=== PATIENT | male | born 1990 | race Caucasian/White ===

== ENCOUNTER 2016-12-09 07:45 | Inpatient (IN) | payer MEDICARE, OTHER ==
[2016-12-09] MEDS ORDERED: SODIUM CHLORIDE 0.9% 1,000 ML IV STA (08:19)
--- NOTE | 2016-12-09 08:22 | ED ---
General Adult HPI <Yeison Hernandez - Last Filed: 12/09/16 12:53> - General Source: patient, family, RN notes reviewed, old records reviewed Mode of arrival: ambulatory Limitations: no limitations <Trae Cormier - Last Filed: 12/09/16 12:59> - General Chief complaint: Abdominal Pain Stated complaint: constipation Time Seen by Provider: 12/09/16 08:10 - History of Present Illness Initial comments: Patient is a 26 year old male with significant past medical history for cervical pulses, who presents emergency room today with his mother, with chief complaint of possible bone structure. History provided by mother is patient is nonverbal. Mother states that appetites been decreased over the last 2 days. She states that several bowel obstructions in the past. States his symptoms that he typically starts present with. States that abdominal surgeries in the past. Denies any nausea vomiting. Denies any other complaints or symptoms at this time. Patient denies any recent fever, chills, shortness of breath, chest pain, back pain, abdominal pain, nausea or vomiting, numbness or tingling, dysuria or hematuria, constipation or diarrhea, headaches or visual changes, or any other complaints. (Trae Cormier) - Related Data Home Medications Medication Instructions Recorded Confirmed Polyethylene Glycol 3350 [Miralax] 17 gm PO DAILY 06/16/16 12/09/16 Allergies Allergy/AdvReac Type Severity Reaction Status Date / Time No Known Allergies Allergy Verified 12/09/16 08:27 Review of Systems ROS Other: All systems not noted in ROS Statement are negative. <Yeison Hernandez - Last Filed: 12/09/16 12:53> ROS Other: All systems not noted in ROS Statement are negative. <Trae Cormier - Last Filed: 12/09/16 12:59> ROS Statement: Those systems with pertinent positive or pertinent negative responses have been documented in the HPI. 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 SEIZURE DISORDER-last seizure yrs ago -nOT CURENTLY ON MEDS. HX OF ESOPHAGEAL CONSTRICTION PAST ASPIRATION(PT IS UNABLE TO THROW UP)-not on any special diet. History of Any Multi-Drug Resistant Organisms: None Reported Past Surgical History: Bowel Resection Additional Past Surgical History / Comment(s): 12/10/15 colonoscopy, oral surgery , esphogeal surgery-PT IS UNABLE TO THROW UP, partial lower intestine removed, shunt in brain, repaired a hole in his heart as -went in through his back , Past Anesthesia/Blood Transfusion Reactions: No Reported Reaction Past Psychological History: No Psychological Hx Reported Additional Psychological History / Comment(s): PT WAS BORN PREMATURE(AT 5.5 MONTHS) WT WAS 1 POUND 6 OUNCES.HAS CEREBAL PALSEY,SEVERE MENTAL RETARDATION/ severe cognitive impairment.LIVES WITH HIS SISTER. UNABLE TO READ OR WRITE BUT GOES TO A [employer] IN [place] WHERE MOM SAID HE LEARNED SOME SIGN LANGUAGE. PT ABLE TO AMBULATE ON HIS OWN AND PTS MOM STATED HE CAN FOLLOW DIRECTIONS FAIRLY WELL, AND SHAKE HIS HEAD YES /NO. Pt sensitive to buzzing noises. Smoking Status: Never smoker Past Alcohol Use History: None Reported Past Drug Use History: None Reported - Past Family History Mother Family Medical History: Cancer Additional Family Medical History / Comment(s): BREAST CANCER-mother is 61 yrs old. Father Family Medical History: Seizure Disorder Additional Family Medical History / Comment(s): Father is 58 yrs old. <Trae Cormier - Last Filed: 12/09/16 12:59> General Exam <Yeison Hernandez - Last Filed: 12/09/16 12:53> Limitations: no limitations <Trae Cormier - Last Filed: 12/09/16 12:59> - General Exam Comments Initial Comments: General: The patient is awake and alert, in no distress, and does not appear acutely ill. Eye: Pupils are equal, round and reactive to light, extra-ocular movements are intact. No nystagmus. There is normal conjunctiva bilaterally. No signs of icterus. Ears, nose, mouth and throat: There are moist mucous membranes and no oral lesions. Neck: The neck is supple, there is no tenderness or JVD. Cardiovascular: There is a regular rate and rhythm. No murmur, rub or gallop is appreciated. Respiratory: Lungs are clear to auscultation, respirations are non-labored, breath sounds are equal. No wheezes, stridor, rales, or rhonchi. Gastrointestinal: Soft, non-distended, non-tender abdomen without masses or organomegaly noted. There is no rebound or guarding present. No CVA tenderness. Musculoskeletal: Normal ROM, no tenderness. Strength 5/5. Sensation intact. Pulses equal bilaterally 2+. Neurological: A&O x 3. CN II-XII intact, There are no obvious motor or sensory deficits. Coordination appears grossly intact. Speech is normal. Skin: Skin is warm and dry and no rashes or lesions are noted. Psychiatric: Cooperative, appropriate mood & affect, normal judgment. (Trae Cormier) Course <Yeison Hernandez - Last Filed: 12/09/16 12:53> <Trae Cormier - Last Filed: 12/09/16 12:59> Vital Signs 12/09/16 12/09/16 08:02 10:06 Temperature 97.1 F L Pulse Rate 106 H 101 H Respiratory 18 18 Rate Blood Pressure 154/92 146/85 O2 Sat by Pulse 98 95 Oximetry - Reevaluation(s) Reevaluation #1: 12/09/16 12:54 Patient reevaluated by myself, Dr. Hernandez. Patient is a difficult exam and is nonverbal. Patient's abdomen is somewhat distended. Results reviewed. Family updated. Case discussed with Dr. Mayes will admit his patient with consult for Dr. Barnes who the patient has previously seen. (Yeison Hernandez) Medical Decision Making - Lab Data Result diagrams: 12/09/16 08:55 12/09/16 08:55 <Yeison Hernandez - Last Filed: 12/09/16 12:53> - Lab Data Result diagrams: 12/09/16 08:55 12/09/16 08:55 <Trae Cormier - Last Filed: 12/09/16 12:59> - Lab Data Lab Results 12/09/16 12/09/16 12/09/16 Range/Units 08:55 08:55 08:55 WBC 18.6 H (3.8-10.6) k/uL RBC 6.00 H (4.30-5.90) m/uL Hgb 16.5 (13.0-17.5) gm/dL Hct 50.4 (39.0-53.0) % MCV 84.0 (80.0-100.0) fL MCH 27.5 (25.0-35.0) pg MCHC 32.7 (31.0-37.0) g/dL RDW 13.0 (11.5-15.5) % Plt Count 277 (150-450) k/uL Neutrophils % 90 % Lymphocytes % 2 % Monocytes % 7 % Eosinophils % 0 % Basophils % 0 % Neutrophils # 16.8 H (1.3-7.7) k/uL Lymphocytes # 0.3 L (1.0-4.8) k/uL Monocytes # 1.2 H (0-1.0) k/uL Eosinophils # 0.1 (0-0.7) k/uL Basophils # 0.1 (0-0.2) k/uL Manual Slide Review Performed Sodium 141 (137-145) mmol/L Potassium 4.3 (3.5-5.1) mmol/L Chloride 96 L (98-107) mmol/L Carbon Dioxide 28 (22-30) mmol/L Anion Gap 17 mmol/L BUN 17 (9-20) mg/dL Creatinine 0.73 (0.66-1.25) mg/dL Est GFR (MDRD) Af Amer >60 (>60 ml/min/1.73 sqM) Est GFR (MDRD) Non-Af >60 (>60 ml/min/1.73 sqM) Glucose 154 H (74-99) mg/dL Plasma Lactic Acid Taj 2.8 H* (0.7-2.0) mmol/L Calcium 10.4 H (8.4-10.2) mg/dL Total Bilirubin 0.7 (0.2-1.3) mg/dL AST 26 (17-59) U/L ALT 32 (21-72) U/L Alkaline Phosphatase 57 (38-126) U/L Total Protein 8.8 H (6.3-8.2) g/dL Albumin 5.2 H (3.5-5.0) g/dL Amylase 59 (30-110) U/L Lipase 40 (23-300) U/L Disposition <Yeison Hernandez - Last Filed: 12/09/16 12:53> Time of Disposition: 12:48 <Trae Cormier - Last Filed: 12/09/16 12:59> Clinical Impression: Ileus, Gallstones Disposition: ADMITTED IP TO THIS HOSP Condition: Stable
[2016-12-09 09:24] LABS: Basophils # (A) 0.1 k/uL (0-0.2); Basophils % (A) 0 %; CH 28.7; CHCM 34.3; Eosinophils # (A) 0.1 k/uL (0-0.7); Eosinophils % (A) 0 %; HCT 50.4 % (39.0-53.0); HDW 2.43; HGB 16.5 gm/dL (13.0-17.5); Immature Gran Flag Moderate; Luc # (Auto) 0.11; Luc % (Auto) 1; Lymphocytes # (A) 0.3 k/uL (1.0-4.8); Lymphocytes % (A) 2 %; MCH 27.5 pg (25.0-35.0); MCHC 32.7 g/dL (31.0-37.0); Mean Platelet Volume 7.4; Monocytes # (A) 1.2 k/uL (0-1.0); Monocytes % (A) 7 %; Neutrophils # (A) 16.8 k/uL (1.3-7.7); Neutrophils % (A) 90 %; WBC 18.6 k/uL (3.8-10.6)
[2016-12-09 09:25] LABS: ALT 32 U/L (21-72); AST 26 U/L (17-59); Alkaline Phosphatase 57 U/L (38-126); Amylase 59 U/L (30-110); Anion Gap 17 mmol/L; Blood Urea Nitrogen 17 mg/dL (9-20); Calcium 10.4 mg/dL (8.4-10.2); Carbon Dioxide 28 mmol/L (22-30); Chloride 96 mmol/L (98-107); Glucose 154 mg/dL (74-99); Non-African American GFR(MDRD) >60 (>60 ml/min/1.73 sqM); Potassium 4.3 mmol/L (3.5-5.1); Sodium 141 mmol/L (137-145); Total Bilirubin 0.7 mg/dL (0.2-1.3); Total Protein 8.8 g/dL (6.3-8.2)
--- NOTE | 2016-12-09 10:01 | XR ---
EXAMINATION TYPE: XR abdomen complete w decub DATE OF EXAM: 12/09/2016 9:47 AM COMPARISON: 08/06/2016 HISTORY: Pain TECHNIQUE: Supine, upright, and left side down lateral decubitus views of the abdomen are obtained. FINDINGS: There is no evidence for pneumoperitoneum. Dilated loops of small and large bowel persist essentially unchanged from prior examination of 016. The findings may reflect ileus. Distal obstruction is within the differential. No sizeable air fluid levels. No mass effects are seen. No unusual calcifications. IMPRESSION: Nonspecific bowel gas pattern. Continued follow-up advised.
[2016-12-09] MEDS ORDERED: RX INFO: IV CONTRAST WAS GIVEN 1 EACH MISC MISCELLANE PRN (10:04)
[2016-12-09 10:33] LABS: Manual Review Performed
--- NOTE | 2016-12-09 10:56 | CT ---
EXAMINATION TYPE: CT abdomen pelvis w con DATE OF EXAM: 12/09/2016 10:38 AM COMPARISON: NONE INDICATION: Constipation DLP: 441.6 mGycm, Automated exposure control for dose reduction was used. CONTRAST: 100 mL of Omnipaque 300. Study performed without Oral Contrast TECHNIQUE: Axial images were obtained from above the diaphragm to the pubic rami in the axial plane a t 5 mm thick sections. Reconstructed images are reviewed on the computer in the coronal plane. FINDINGS: Limited CT sections are obtained the lung bases. The lung bases are clear. CT ABDOMEN: Liver: There is a 1.3 cm hypodense are slightly irregular torres within the posterior lateral right mi d kidney. This is not a simple cyst. Other etiologies including masses or hemangioma could be conside red. This is less well visualized on delayed images. Spleen: Normal Pancreas: Normal Adrenal glands: The adrenal glands are normal. Gallbladder: Not identified. What appears to be the common bile duct leading towards the head of the pancreas there are several calcifications present. Multiple common bile duct stones are suspected. Kidneys: No masses are evident. No hydronephrosis is present. No cysts are present. Delayed images were obtained through the kidneys, which remain unremarkable. Aorta: Vascular calcification is within the distal aorta. Inferior vena cava: Normal. CT PELVIS: There are multiple dilated loops of bowel including small bowel loops and the colon. Appendix: Normal as visualized. Urinary bladder: Normal. Genitourinary structures: Prostate appears unremarkable. Osseous structures: No suspicious lytic or sclerotic lesions. IMPRESSIONS: 1. Multiple dilated small bowel loops. The colon appears air-filled and fluid-filled. No zone of tra nsition is identified. Ileus is likely within the differential. Distal colonic obstruction is conside red less likely. 2. Multiple common bile duct stones present. Correlate with patient's surgical history.
--- NOTE | 2016-12-09 12:37 | US ---
EXAMINATION TYPE: US abdomen limited DATE OF EXAM: 12/09/2016 12:07 PM COMPARISON: In pacs CLINICAL HISTORY: Pain. Physically and mentally disabled patient, patient's mother states she brought him to the ER for digestion and bowel problems, mother states he still has his gallbladder. EXAM MEASUREMENTS: Liver Length: 15.1 cm Gallbladder Wall: 0.2 cm CBD: n/a Right Kidney: 7.4 x 4.4 x 5.1 cm Technically difficult and limited study due to patient's disability Pancreas: obscured by overlying midline bowel gas Liver: 1.6 x 2.5 x 1.3cm hyperechoic lesion right lobe, scanned intercostally, limited by rib shadow ing and overlying bowel gas Gallbladder: not seen with certainty Evidence for sonographic Raza's sign: n/a CBD: not seen with certainty Right Kidney: appears atrophic at 7.4cm Within gallbladder/CBD area there is an elongated tubular structure with multiple echogenic shadowi ng foci within, ? gallbladder vs. CBD IMPRESSION: 1. Poor visualization of the gallbladder. 2. Hyperechoic hepatic lesion may reflect hemangioma.
[2016-12-09] MEDS ORDERED: NALOXONE 0.4 MG/ML 1 ML VIAL IV PRN (12:54)
[2016-12-09] MEDS ORDERED: ACETAMINOPHEN TAB 325 MG TAB PO PRN (12:54)
[2016-12-09] MEDS ORDERED: SODIUM CHLORIDE 0.9% 1,000 ML IV ONE (12:54)
[2016-12-09] MEDS ORDERED: ONDANSETRON 4 MG/2 ML VIAL IVP PRN (12:54)
[2016-12-09] MEDS: HYDROmorphone 1 MG/ML 1 ML SYRINGE IV PRN ×2 (16:53→21:35)
[2016-12-10] MEDS: HYDROmorphone 1 MG/ML 1 ML SYRINGE IV PRN ×3 (08:22→18:21)
[2016-12-10 08:39] LABS: ALT 28 U/L (21-72); AST 20 U/L (17-59); Alkaline Phosphatase 45 U/L (38-126); Anion Gap 12 mmol/L; Blood Urea Nitrogen 22 mg/dL (9-20); Calcium 9.1 mg/dL (8.4-10.2); Carbon Dioxide 28 mmol/L (22-30); Chloride 101 mmol/L (98-107); Glucose 88 mg/dL (74-99); Non-African American GFR(MDRD) >60 (>60 ml/min/1.73 sqM); Potassium 4.5 mmol/L (3.5-5.1); Sodium 141 mmol/L (137-145); Total Bilirubin 0.6 mg/dL (0.2-1.3)
[2016-12-10 09:00] LABS: Basophils # (A) 0.1 k/uL (0-0.2); Basophils % (A) 1 %; CH 28.3; CHCM 33.2; Eosinophils # (A) 0.2 k/uL (0-0.7); Eosinophils % (A) 2 %; HCT 44.5 % (39.0-53.0); HDW 2.34; HGB 14.2 gm/dL (13.0-17.5); Luc # (Auto) 0.21; Luc % (Auto) 3; Lymphocytes # (A) 0.9 k/uL (1.0-4.8); Lymphocytes % (A) 10 %; MCH 27.2 pg (25.0-35.0); MCHC 31.9 g/dL (31.0-37.0); MCV 85.4 fL (80.0-100.0); Mean Platelet Volume 7.4; Monocytes # (A) 1.1 k/uL (0-1.0); Monocytes % (A) 14 %; Neutrophils # (A) 5.9 k/uL (1.3-7.7); Neutrophils % (A) 71 %; RBC 5.22 m/uL (4.30-5.90); RDW 13.1 % (11.5-15.5); WBC 8.3 k/uL (3.8-10.6); WBC (Perox) 8.31
[2016-12-10 12:50] LABS: Appearance,Urine Clear (Clear); Bilirubin,Urine Negative (Negative); Glucose,Urine (UA) Negative (Negative); Ketones,Urine 3+ (Negative); Leukocyte Esterase,Urine Negative (Negative); Nitrite,Urine Negative (Negative); PH, Urine 5.5 (5.0-8.0); Protein,Urine Trace (Negative); Specific Gravity,Urine 1.025 (1.001-1.035); UA Billing (MACRO vs. MICRO) CHEM; Urobilinogen,Urine <2.0 mg/dL (<2.0)
--- NOTE | 2016-12-10 16:20 | P.GSCN ---
History of Present Illness Consult date: 12/10/16 Reason for Consult: Ileus History of present illness: Patient is fairly well known to our service. The patient has a history of numerous abdominal surgeries as an . He has frequent episodes of ileus that requires conservative therapy and gradually resolves. During a recent hospitalization a flexible sigmoidoscopy was performed which showed no evidence of distal colonic obstruction. Actual anastomosis was not seen although it is suspected that he has had a large volume of his colon removed in the past. He came in with recurrent episode of abdominal distention and anorexia. Abdominal x-rays suggest a ileus or obstruction. He did have gallstones seen on his CAT scan with a contracted gallbladder. The large loose liquid stool yesterday evening. White blood cell count was elevated although that is improved and normalized today. Lactic acid was also elevated yesterday. 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 SEIZURE DISORDER-last seizure yrs ago -nOT CURENTLY ON MEDS. HX OF ESOPHAGEAL CONSTRICTION, PAST ASPIRATION(PT IS UNABLE TO THROW UP)-not on any special diet. History of Any Multi-Drug Resistant Organisms: None Reported Past Surgical History: Bowel Resection Additional Past Surgical History / Comment(s): 12/10/15 colonoscopy, oral surgery , esphogeal surgery-PT IS UNABLE TO THROW UP, partial lower intestine removed, shunt in brain, repaired a hole in his heart as infant -went in through his back , Past Anesthesia/Blood Transfusion Reactions: No Reported Reaction Past Psychological History: No Psychological Hx Reported Additional Psychological History / Comment(s): PT WAS BORN PREMATURE(AT 5.5 MONTHS) WT WAS 1 POUND 6 OUNCES.HAS CEREBAL PALSEY,SEVERE MENTAL RETARDATION/ severe cognitive impairment.LIVES WITH HIS SISTER. UNABLE TO READ OR WRITE BUT GOES TO A [employer] IN [place] WHERE MOM SAID HE LEARNED SOME SIGN LANGUAGE. PT ABLE TO AMBULATE ON HIS OWN AND PTS MOM STATED HE CAN FOLLOW DIRECTIONS FAIRLY WELL, AND SHAKE HIS HEAD YES /NO. Pt sensitive to buzzing noises. Smoking Status: Never smoker Past Alcohol Use History: None Reported Past Drug Use History: None Reported - Past Family History Mother Family Medical History: Cancer Additional Family Medical History / Comment(s): BREAST CANCER-mother is 61 yrs old. Father Family Medical History: Seizure Disorder Additional Family Medical History / Comment(s): Father is 58 yrs old. Medications and Allergies Home Medications Medication Instructions Recorded Confirmed Type Polyethylene Glycol 3350 [Miralax] 17 gm PO DAILY 06/16/16 12/09/16 History Allergies Allergy/AdvReac Type Severity Reaction Status Date / Time No Known Allergies Allergy Verified 12/09/16 08:27 Surgical - Exam Vital Signs Temp Pulse Resp BP Pulse Ox 97.1 F L 106 H 18 154/92 98 12/09/16 08:02 12/09/16 08:02 12/09/16 08:02 12/09/16 08:02 12/09/16 08:02 Physical exam: General: Well-developed, well-nourished HEENT: Normocephalic, sclerae nonicteric Abdomen: Slightly distended, nontender Extremities: No edema Neuro: Nonverbal but alert Results - Labs 12/10/16 07:20 12/10/16 07:20 Abnormal Lab Results - Last 24 Hours (Table) 12/10/16 12/10/16 12/10/16 Range/Units 07:20 07:20 12:35 Lymphocytes # 0.9 L (1.0-4.8) k/uL Monocytes # 1.1 H (0-1.0) k/uL BUN 22 H (9-20) mg/dL Urine Protein Trace H (Negative) Urine Ketones 3+ H (Negative) Diabetes panel 12/10/16 Range/Units 07:20 Sodium 141 (137-145) mmol/L Potassium 4.5 (3.5-5.1) mmol/L Chloride 101 (98-107) mmol/L Carbon Dioxide 28 (22-30) mmol/L BUN 22 H (9-20) mg/dL Creatinine 0.67 (0.66-1.25) mg/dL Glucose 88 (74-99) mg/dL Calcium 9.1 (8.4-10.2) mg/dL AST 20 (17-59) U/L ALT 28 (21-72) U/L Alkaline Phosphatase 45 (38-126) U/L Total Protein 7.0 (6.3-8.2) g/dL Albumin 4.1 (3.5-5.0) g/dL Calcium panel 12/10/16 Range/Units 07:20 Calcium 9.1 (8.4-10.2) mg/dL Albumin 4.1 (3.5-5.0) g/dL Pituitary panel 12/10/16 Range/Units 07:20 Sodium 141 (137-145) mmol/L Potassium 4.5 (3.5-5.1) mmol/L Chloride 101 (98-107) mmol/L Carbon Dioxide 28 (22-30) mmol/L BUN 22 H (9-20) mg/dL Creatinine 0.67 (0.66-1.25) mg/dL Glucose 88 (74-99) mg/dL Calcium 9.1 (8.4-10.2) mg/dL Adrenal panel 12/10/16 Range/Units 07:20 Sodium 141 (137-145) mmol/L Potassium 4.5 (3.5-5.1) mmol/L Chloride 101 (98-107) mmol/L Carbon Dioxide 28 (22-30) mmol/L BUN 22 H (9-20) mg/dL Creatinine 0.67 (0.66-1.25) mg/dL Glucose 88 (74-99) mg/dL Calcium 9.1 (8.4-10.2) mg/dL Total Bilirubin 0.6 (0.2-1.3) mg/dL AST 20 (17-59) U/L ALT 28 (21-72) U/L Alkaline Phosphatase 45 (38-126) U/L Total Protein 7.0 (6.3-8.2) g/dL Albumin 4.1 (3.5-5.0) g/dL Assessment and Plan (1) Ileus Narrative/Plan: Continue bowel rest for now. Consider starting diet tomorrow. Doubt the findings of gallstones warrant any further therapy at this time. Will follow with you. Status: Acute
[2016-12-11 08:22] VITALS: BP 105/84; PULSE 76; RESP 12; TEMP 97.6
[2016-12-11] MEDS ORDERED: KETOROLAC 30 MG/ML 1 ML VIAL IVP PRN (10:42)
[2016-12-11] MEDS ORDERED: SODIUM CHLORIDE 0.9% 1,000 ML IV SCH (10:45)
--- NOTE | 2016-12-11 11:17 | HP ---
DATE OF ADMISSION: 12/09/2016 The patient is a pleasant 26-year-old debilitated male who has had multiple admissions for similar problems. He was apparently brought in by his primary critical care transport nurse, which is her sister. The patient had significant abdominal obstruction over the past 2 days. These symptoms typically start with bloating and abdominal distention, then nausea and vomiting and no bowel movement. The patient had all these symptoms and his brought into the emergency department. 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 The patient is nonverbal, aphasic and noncommunicating. PAST SURGICAL HISTORY: Significant for esophageal dilation, bowel resection, colonoscopy, shunt for hydrocephalus, patent foramen ovale procedure as an infant. PSYCHOLOGICAL HISTORY: The patient was born premature at 1 pound, 6 ounces. He does go to [employer] in [place]. SOCIAL: Negative for tobacco, alcohol or drugs. FAMILY HISTORY: Mother had breast cancer. Father has seizure disorder. Primary critical care transport nurse is his sister because of his mother's health. Sister's name is Gris. REVIEW OF SYSTEMS: Unable to obtain secondary to patient's mentally challenged state. PHYSICAL EXAM: GENERAL: He is awake. He is looking about. SKIN: Warm and dry. EYES: Pupils equal and round, reactive to light. Ears, eyes, nose throat normal. Mucous membranes moist. HEART: Regular rate and rhythm. LUNGS: Clear to auscultation. ABDOMEN: Fairly distended. No rebound, rigidity, guarding but some tenderness. MUSCULOSKELETAL: Deformities noted. Thin but strong. SKIN: Warm and dry to palpation. PSYCHOLOGICAL: Cooperative. Seems to follow some commands. Patient is aphasic. IMPRESSION: 1. Acute leukocytosis. 2. Acute abdominal ileus. 3. Cerebral palsy and history of premature . The patient will continue to be followed in the hospital. Will leave n.p.o. and have surgery, Dr. León, see him as well, who is known to his care. This weekend the [facility] to follow patient's progress. Hopefully discharge before Easter.
--- NOTE | 2016-12-11 12:48 | HP ---
DATE OF ADMISSION: HISTORY AND PHYSICAL AND DISCHARGE SUMMARY The patient is a pleasant 26-year-old nonverbal gentleman who came with multiple abdominal surgeries in the past, had multiple episodes of ileus in the past and patient has come to hospital with suspicion of ileus and patient has multiple ileus in the past. Patient's recent sigmoidoscopy did not show any colonic obstruction. Patient does not have any fever, chills. Patient denied any nausea, vomiting. Patient had a CT of the abdomen, which in fact did show ileus. Because of which, Surgery evaluated the patient. There was suspicion of gallstones. Gallbladder was not visualized on the imaging. Surgery evaluated the patient and did not believe patient has any gallstones at this point of time. CT was suspicious for multiple common bile duct stones, although on the ultrasound those were not visualized. Patient did have large liquid stool yesterday and patient did have 3 bowel movements today. Patient does have bowel sounds which are sluggish. Will discuss with Dr. León regarding advancing the diet and if he is able to tolerate that possibility of discharge today and avoid any narcotic medications. Patient is on hydromorphone, which was discontinued and patient was started on ketorolac instead. Patient did not take any of the pain medications today. If patient is cleared by Dr. León, will be discharged or else patient may stay until tomorrow. REVIEW OF SYSTEMS: Unable to obtain due to his clinical condition. PAST MEDICAL HISTORY: Seizure disorder, multiple ileus and abdominal surgeries in the past, cerebral palsy leading to mental retardation. Patient is nonverbal because of that. SOCIAL HISTORY: Denied any smoking, alcohol abuse or drug abuse. FAMILY HISTORY: Mother had breast cancer and father had seizure disorder. HOME MEDICATIONS: Polyethylene glycol as needed for constipation. ALLERGIES: No known drug allergies. PHYSICAL EXAMINATION: Temperature 97.6, pulse of 76, respiratory rate of 12, blood pressure 105/84, saturating at 97% on room air. GENERAL: The patient is alert, unable to assess orientation. The patient is mostly nonverbal. HEENT: Pupils are round and equally reacting to light. EOMI. No scleral icterus. No conjunctival pallor. Normocephalic, atraumatic. No pharyngeal erythema. No thyromegaly. CARDIOVASCULAR: S1 and S2 present. No murmurs, rubs, or gallops. PULMONARY: Chest is clear to auscultation, no wheezing or crackles. ABDOMEN: Scars consistent with multiple abdominal surgeries in the past. Bowel sounds are sluggish. No abdominal tenderness. No rebound or rigidity. Patient's abdomen is still a little bit tympanic. MUSCULOSKELETAL: No joint swelling or deformity. EXTREMITIES: No cyanosis, clubbing, or pedal edema. NEUROLOGICAL: Limited. Patient is moving all 4 limbs. Does not appear to have a new focal LABORATORY DATA: CBC, CMP abnormal for elevated WBC count of 18,600, which has come down. This is reactive leukocytosis. Chest x-ray did not show any pneumonic process. Abdominal ultrasound and abdominopelvic CT as mentioned above. ASSESSMENT AND PLAN: 1. Ileus, which is improving. Management as mentioned in the interval history. Patient will be continued on IV fluids. If patient ends up staying here, we will slowly advance the diet and will continue the IV fluids. 2. Suspicion of choledocholithiasis, which was not evidence on the ultrasound. Surgery evaluated the patient, do not believe patient has any gallstones at this point of time. 3. Leukocytosis, reactive in nature. 4. Cerebral palsy, supportive care. 5. Tachycardia due to intravascular volume depletion, improved with IV fluid resuscitation. Patient will follow with Dr. Jon Mayes as an outpatient in 3 to 7 days. Activity as tolerated. Regular diet. Follow with Surgery as scheduled.
--- NOTE | 2016-12-11 14:17 | P.PN ---
Subjective Principal diagnosis: Ileus Patient doing well today. Tolerating his diet. 3 loose stools yesterday. Plans are for discharge today. Objective - Vital Signs Vital signs: Vital Signs Temp 97.6 F 12/11/16 07:00 Pulse 76 12/11/16 07:00 Resp 12 12/11/16 08:00 BP 105/84 12/11/16 07:00 Pulse Ox 97 12/11/16 07:00 Intake & Output 12/10/16 12/11/16 12/11/16 18:59 06:59 18:59 Intake Total 600 Output Total 0 Balance 600 Intake: Intake, IV Titration 600 Amount Sodium Chloride 0.9% 1, 600 000 ml @ 75 mls/hr IV . [id number] Rx#:[id number] Oral 0 Output: Urine 0 Other: Voiding Method Toilet Toilet Toilet Diaper Diaper Diaper Incontinent Incontinent # Voids 2 1 # Bowel Movements 2 - Exam Abdomen: Soft, nontender, nondistended - Labs CBC & Chem 7: 12/10/16 07:20 12/10/16 07:20 Assessment and Plan (1) Ileus Narrative/Plan: Continue diet as tolerated. Continue stool softeners. No surgical intervention for the patient's gallstones plan at this time. Status: Acute
[2016-12-11] MEDS ORDERED: FAMOTIDINE 20 MG/2 ML VIAL IV SCH (21:00)
== END 2016-12-11 17:08 | disposition home or self-care (01) | DRG 389 ==
LOC: EC 07:45 → 5MS5E 12:54 → 5ONC 12-10 08:25
PROVIDERS: ADMIT Family Medicine; ATTEND Family Medicine
DX: K56.7 Ileus, unspecified (principal); F72 Severe intellectual disabilities; R47.01 Aphasia; G80.9 Cerebral palsy, unspecified; G40.909 Epilepsy, unspecified, not intractable, without status epilepticus; E86.9 Volume depletion, unspecified; R32 Unspecified urinary incontinence; Z98.2 Presence of cerebrospinal fluid drainage device; Z79.899 Other long term (current) drug therapy
CPT/HCPCS: 36415; 74020; 74177; 76705; 80053; 81003; 82150; 83605; 83690; 85025; 99285

== ENCOUNTER 2017-04-06 17:13 | Inpatient (IN) | payer MEDICARE, OTHER ==
[2017-04-06] MEDS ORDERED: SODIUM CHLORIDE 0.9% 1,000 ML IV STA ×2 (18:32)
--- NOTE | 2017-04-06 18:37 | ED ---
Abdominal Pain HPI - General Chief Complaint: Abdominal Pain Stated Complaint: poss bowel obstruction Time Seen by Provider: 04/06/17 18:23 Source: patient, RN notes reviewed, old records reviewed, Caregiver Mode of arrival: ambulatory Limitations: language barrier, altered mental status - History of Present Illness Initial Comments: 26-year-old male presents to the emergency department with his caregiver with chief complaint of concern for possible bowel obstruction. 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 He stated he very frequently deals with bowel obstructions due to his surgical and medical history. Patient's caregiver states that he received printed juice and MiraLAX to help with bowel movements. He did have a bowel movement yesterday evening and today. Patient caregiver reports that he does not have the ability to vomit. They report they noticed that his abdomen has became increasingly distended over the past few hours. He has been crouching over in pain. - Related Data Home Medications Medication Instructions Recorded Confirmed Lactulose 20 gm PO DAILY PRN 04/06/17 04/06/17 Allergies Allergy/AdvReac Type Severity Reaction Status Date / Time No Known Allergies Allergy Verified 04/06/17 19:14 Review of Systems ROS Statement: Those systems with pertinent positive or pertinent negative responses have been documented in the HPI. ROS Other: All systems not noted in ROS Statement are negative. 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 SEIZURE DISORDER-last seizure yrs ago -nOT CURENTLY ON MEDS. HX OF ESOPHAGEAL CONSTRICTION, PAST ASPIRATION(PT IS UNABLE TO THROW UP)-not on any special diet. 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 Father Family Medical History: Seizure Disorder Additional Family Medical History / Comment(s): Father is 58 yrs old. General Exam - General Exam Comments Initial Comments: This is a 26-year-old male. Patient is on appear to be in any acute distress. Patient is nonverbal. Limitations: language barrier, altered mental status Head exam: Present: atraumatic, normocephalic, normal inspection Eye exam: Present: normal appearance, PERRL, EOMI. Absent: scleral icterus, conjunctival injection, periorbital swelling ENT exam: Present: normal exam, mucous membranes moist Neck exam: Present: normal inspection. Absent: tenderness, meningismus, lymphadenopathy Respiratory exam: Present: normal lung sounds bilaterally. Absent: respiratory distress, wheezes, rales, rhonchi, stridor Cardiovascular Exam: Present: regular rate, normal rhythm, normal heart sounds. Absent: systolic murmur, diastolic murmur, rubs, gallop, clicks GI/Abdominal exam: Present: distended, tenderness, diminished bowel sounds ( Patient has diminished bowel sounds.). Absent: soft, guarding, rebound, rigid Extremities exam: Present: normal inspection, full ROM, normal capillary refill. Absent: tenderness, pedal edema, joint swelling, calf tenderness Back exam: Present: normal inspection Neurological exam: Present: alert, oriented X3, CN II-XII intact Psychiatric exam: Present: normal affect, normal mood Skin exam: Present: warm, dry, intact, normal color. Absent: rash Course Vital Signs 04/06/17 04/06/17 04/06/17 17:27 21:04 22:20 Temperature 97.8 F 97.8 F Pulse Rate 124 H 95 Pulse Rate [ 94 Left] Respiratory 20 18 16 Rate Blood Pressure 136/95 142/83 O2 Sat by Pulse 98 97 Oximetry 04/06/17 04/06/17 22:22 22:46 Temperature Pulse Rate 102 H Pulse Rate [ Left] Respiratory 18 16 Rate Blood Pressure 147/79 130/71 O2 Sat by Pulse 94 L 94 L Oximetry Procedures - Restraint - Face to Face Restraint Occurrence 1 Patient's Immediate Situation: Other (see comment) Patient's Immediate Situation - Comment: Patient needed NG tube to be inserted due to bowel obstruction. Patient would not tolerate the procedure without sedation and restraints. Patient's Reaction to the Intervention: Appropriate, Calm, Relaxed Patient's Medical & Behavioral Condition: Awake Patient's Medical & Behavioral Condition - Comment: Patient is alert however he is somewhat drowsy after receiving pain medication and Ativan. This had begun to drink. Patient was reevaluated and is resting comfortably. Concerned we do remove the restraints that becomes more alert he will pull out the NG tube. Need to Continue or Terminate Restraint or Seclusion: Continue Need to Continue or Terminate Restraint/Seclusion - Comment: Patient will need to continue the restraints. Of concern when he does become more awake and arouse that he may pull the NG tube out. Face to Face Eval of Restraint Date: 04/06/17 Face to Face Eval of Restraint Time: 22:20 Medical Decision Making - Medical Decision Making 26-year-old male presents emergency department with abdominal distention for the past day. Patient's abdominal x-ray was reviewed to show evidence of signs of bowel instruction. Patient was given an NG tube. Patient's lab work was reviewed. He was given IV hydration. did have mildly elevated lactic acidosis which could be related to dehydration and episode of diarrhea earlier today. Patient case assessment with Dr. Loza. Patient will be admitted. Dr. León is his surgeon., and case discussed with Dr. Corea. Patient's chest x- ray was reviewed and did show some mild effusion which could be related to CHF, however patient has had no shortness of breath. No signs of CHF with leg edema , the findings may be related to the abdominal distention. In order to install an NG tube patient did have to be placed in soft restraints and sedated with Ativan. did tolerate well. I discussed that we should keep the patient restraints for a short time until we know that he will not remove the NG tube. Patient will continue to receive IV fluids. - Lab Data Result diagrams: 04/06/17 18:40 04/06/17 18:40 Lab Results 04/06/17 04/06/17 04/06/17 Range/Units 18:40 18:40 18:40 WBC 11.1 H (3.8-10.6) k/uL RBC 5.69 (4.30-5.90) m/uL Hgb 16.1 (13.0-17.5) gm/dL Hct 46.6 (39.0-53.0) % MCV 81.9 (80.0-100.0) fL MCH 28.3 (25.0-35.0) pg MCHC 34.5 (31.0-37.0) g/dL RDW 12.4 (11.5-15.5) % Plt Count 302 (150-450) k/uL Neutrophils % 85 % Lymphocytes % 4 % Monocytes % 9 % Eosinophils % 1 % Basophils % 0 % Neutrophils # 9.4 H (1.3-7.7) k/uL Lymphocytes # 0.4 L (1.0-4.8) k/uL Monocytes # 1.0 (0-1.0) k/uL Eosinophils # 0.1 (0-0.7) k/uL Basophils # 0.0 (0-0.2) k/uL Sodium 141 (137-145) mmol/L Potassium 4.3 (3.5-5.1) mmol/L Chloride 99 (98-107) mmol/L Carbon Dioxide 25 (22-30) mmol/L Anion Gap 17 mmol/L BUN 22 H (9-20) mg/dL Creatinine 0.80 (0.66-1.25) mg/dL Est GFR (MDRD) Af Amer >60 (>60 ml/min/1.73 sqM) Est GFR (MDRD) Non-Af >60 (>60 ml/min/1.73 sqM) Glucose 155 H (74-99) mg/dL Lactic Ac Sepsis Rflx Plasma Lactic Acid Taj 2.4 H* (0.7-2.0) mmol/L Calcium 10.3 H (8.4-10.2) mg/dL Total Bilirubin 0.8 (0.2-1.3) mg/dL AST 25 (17-59) U/L ALT 39 (21-72) U/L Alkaline Phosphatase 65 (38-126) U/L Total Protein 8.4 H (6.3-8.2) g/dL Albumin 5.1 H (3.5-5.0) g/dL Amylase 48 (30-110) U/L Lipase 37 (23-300) U/L 04/06/17 Range/Units 19:11 WBC (3.8-10.6) k/uL RBC (4.30-5.90) m/uL Hgb (13.0-17.5) gm/dL Hct (39.0-53.0) % MCV (80.0-100.0) fL MCH (25.0-35.0) pg MCHC (31.0-37.0) g/dL RDW (11.5-15.5) % Plt Count (150-450) k/uL Neutrophils % % Lymphocytes % % Monocytes % % Eosinophils % % Basophils % % Neutrophils # (1.3-7.7) k/uL Lymphocytes # (1.0-4.8) k/uL Monocytes # (0-1.0) k/uL Eosinophils # (0-0.7) k/uL Basophils # (0-0.2) k/uL Sodium (137-145) mmol/L Potassium (3.5-5.1) mmol/L Chloride (98-107) mmol/L Carbon Dioxide (22-30) mmol/L Anion Gap mmol/L BUN (9-20) mg/dL Creatinine (0.66-1.25) mg/dL Est GFR (MDRD) Af Amer (>60 ml/min/1.73 sqM) Est GFR (MDRD) Non-Af (>60 ml/min/1.73 sqM) Glucose (74-99) mg/dL Lactic Ac Sepsis Rflx Y Plasma Lactic Acid Taj (0.7-2.0) mmol/L Calcium (8.4-10.2) mg/dL Total Bilirubin (0.2-1.3) mg/dL AST (17-59) U/L ALT (21-72) U/L Alkaline Phosphatase (38-126) U/L Total Protein (6.3-8.2) g/dL Albumin (3.5-5.0) g/dL Amylase (30-110) U/L Lipase (23-300) U/L - Radiology Data Radiology results: report reviewed Cannot exclude CHF exacerbation or fluid overload state as there is new mild cardiomegaly with mild central vascular congestion present. Patient's KB shows overall nontender to bowel gas pattern, but there is gas distended bowel in the upper to mid abdomen redemonstrated. Gas-filled bowel loops in the lower abdomen and pelvis are less prominent. Disposition Clinical Impression: Bowel obstruction Disposition: ADMITTED IP TO THIS HOSP Condition: Stable Time of Disposition: 21:04
[2017-04-06 19:00] LABS: Basophils % (A) 0 %; CHCM 34.3; Eosinophils # (A) 0.1 k/uL (0-0.7); Eosinophils % (A) 1 %; HCT 46.6 % (39.0-53.0); HDW 2.45; HGB 16.1 gm/dL (13.0-17.5); Luc # (Auto) 0.13; Luc % (Auto) 1; Lymphocytes # (A) 0.4 k/uL (1.0-4.8); Lymphocytes % (A) 4 %; MCH 28.3 pg (25.0-35.0); MCHC 34.5 g/dL (31.0-37.0); MCV 81.9 fL (80.0-100.0); Mean Platelet Volume 7.3; Monocytes % (A) 9 %; Neutrophils # (A) 9.4 k/uL (1.3-7.7); Neutrophils % (A) 85 %; RBC 5.69 m/uL (4.30-5.90); RDW 12.4 % (11.5-15.5); WBC 11.1 k/uL (3.8-10.6); WBC (Perox) 11.39
[2017-04-06 19:03] LABS: ALT 39 U/L (21-72); AST 25 U/L (17-59); Alkaline Phosphatase 65 U/L (38-126); Amylase 48 U/L (30-110); Anion Gap 17 mmol/L; Blood Urea Nitrogen 22 mg/dL (9-20); Calcium 10.3 mg/dL (8.4-10.2); Carbon Dioxide 25 mmol/L (22-30); Chloride 99 mmol/L (98-107); Glucose 155 mg/dL (74-99); Non-African American GFR(MDRD) >60 (>60 ml/min/1.73 sqM); Potassium 4.3 mmol/L (3.5-5.1); Sodium 141 mmol/L (137-145); Total Bilirubin 0.8 mg/dL (0.2-1.3); Total Protein 8.4 g/dL (6.3-8.2)
--- NOTE | 2017-04-06 19:38 | XR ---
EXAMINATION TYPE: XR chest 2V DATE OF EXAM: 04/06/2017 COMPARISON: Chest x-ray and CT chest December 25, 2014. HISTORY: History of cerebral palsy with pain. TECHNIQUE: Frontal and lateral views of the chest are obtained. FINDINGS: Cardiac silhouette size is currently more prominent and mildly enlarged. Some mild centr al vascular congestion is present. Diminished inspiration is however noted. No pleural effusion or pn eumothorax is seen bilaterally. Spine is straightened on lateral view. Gas prominent bowel occupies v isualized upper abdomen. IMPRESSION: Cannot exclude CHF exacerbation or fluid overload state as there is new mild cardiomegal y with mild central vascular congestion felt present. Clinical correlation advised.
--- NOTE | 2017-04-06 19:41 | XR ---
EXAMINATION TYPE: XR KUB DATE OF EXAM: 04/06/2017 7:14 PM CLINICAL HISTORY: Abdominal pain, history of obstructions and cerebral palsy TECHNIQUE: 2 supine KUB images of the abdomen are. COMPARISON: CT abdomen and pelvis December 09, 2016 FINDINGS: Cardiac silhouette size is prominent. There is gas distended bowel in the upper to mid abdo men redemonstrated. Gas-filled bowel loops in the lower abdomen and pelvis are less prominent. Findin g is similar to recent CT. Visualized osseous structures are intact. IMPRESSION: Overall nonspecific bowel gas pattern redemonstrated without significant change from prior CT.
[2017-04-06] MEDS ORDERED: ONDANSETRON 4 MG/2 ML VIAL IVP PRN (21:05)
[2017-04-06] MEDS ORDERED: NALOXONE 0.4 MG/ML 1 ML VIAL IV PRN (21:05)
[2017-04-06] MEDS ORDERED: MORPHINE SULFATE 4 MG/ML SYRINGE IV PRN (21:05)
[2017-04-06] MEDS ORDERED: HYDROmorphone 1 MG/ML 1 ML SYRINGE IVP STA (22:00)
[2017-04-06] MEDS ORDERED: LORazepam 2 MG/ML SYRINGE IV STA (22:00)
[2017-04-06 22:01] LABS: Appearance,Urine Clear (Clear); Bilirubin,Urine Negative (Negative); Glucose,Urine (UA) Trace (Negative); Ketones,Urine 2+ (Negative); Leukocyte Esterase,Urine Negative (Negative); Mucus,Urine Few /hpf; Nitrite,Urine Negative (Negative); PH, Urine 5.5 (5.0-8.0); Particle Count 7455; Protein,Urine 1+ (Negative); RBC,Urine 1 /hpf (0-5); Specific Gravity,Urine 1.028 (1.001-1.035); Squamous Epithelial Cell,Urine <1 /hpf (0-4); UA Billing (MACRO vs. MICRO) MICRO; Urobilinogen,Urine <2.0 mg/dL (<2.0); WBC,Urine 1 /hpf (0-5)
[2017-04-07] MEDS: SODIUM CHLORIDE 0.9% 1,000 ML IV SCH ×2 (05:54→11:19)
[2017-04-07 07:40] VITALS: BMI 20.7
[2017-04-07] MEDS: PANTOPRAZOLE 40 MG/10 ML VIAL IV SCH (07:54)
[2017-04-07] MEDS: KETOROLAC 30 MG/ML 1 ML VIAL IVP PRN ×2 (11:19→21:27)
--- NOTE | 2017-04-07 17:36 | P.GSHP ---
History of Present Illness H&P Date: 04/07/17 Chief Complaint: Ileus Patient is known to our service. The patient has a history of numerous abdominal surgeries as an infant. He has had frequent admissions for ileus that responded quite well to bowel rest and often bowel decompression. It is suspected the patient is had a large portion of his colon removed in the past. A previous flexible sigmoidoscopy showed no evidence of colonic obstruction. X- rays once again do show ileus pattern. He was bloated while at home. He was brought into the hospital by his family. He is nonverbal. White blood cell count normal. Lactic acid was initially elevated but returned to normal. - Review of Systems ROS unobtainable: Reports: due to mental status Past Medical History Past Medical History: Seizure Disorder Additional Past Medical History / Comment(s): SEVERLY PREMATURE AT RESULTING IN CEREBRAL PALSY AND MENTAL RETARDATION, PT DOES WEAR BRIEFS. 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 SEIZURE DISORDER-last seizure yrs ago -nOT CURENTLY ON MEDS. HX OF ESOPHAGEAL CONSTRICTION, PAST ASPIRATION(PT IS UNABLE TO THROW UP)-not on any special diet. History of Any Multi-Drug Resistant Organisms: None Reported Past Surgical History: Bowel Resection Additional Past Surgical History / Comment(s): 12/10/15 colonoscopy, oral surgery , esphogeal surgery-PT IS UNABLE TO THROW UP, partial lower intestine removed, shunt in brain, repaired a hole in his heart as -went in through his back , Past Anesthesia/Blood Transfusion Reactions: No Reported Reaction Past Psychological History: No Psychological Hx Reported Smoking Status: Never smoker Past Alcohol Use History: None Reported Past Drug Use History: None Reported - Past Family History Mother Family Medical History: Cancer Additional Family Medical History / Comment(s): BREAST CANCER-mother is 61 yrs old. Father Family Medical History: Seizure Disorder Additional Family Medical History / Comment(s): Father is 58 yrs old. Medications and Allergies Home Medications Medication Instructions Recorded Confirmed Type Lactulose 20 gm PO DAILY PRN 04/06/17 04/06/17 History Allergies Allergy/AdvReac Type Severity Reaction Status Date / Time No Known Allergies Allergy Verified 04/06/17 19:14 Surgical - Exam Vital Signs Temp Pulse Resp BP Pulse Ox 97.8 F 124 H 20 136/95 98 04/06/17 17:27 04/06/17 17:27 04/06/17 17:27 04/06/17 17:27 04/06/17 17:27 Physical exam: General: Well-developed, well-nourished HEENT: Normocephalic, sclerae nonicteric Abdomen: Nontender, mild distention, numerous abdominal scars noted, no palpable hernias Extremities: No edema Neuro: Alert nonverbal Results - Labs 04/06/17 18:40 04/06/17 18:40 Abnormal Lab Results - Last 24 Hours (Table) 04/06/17 04/06/17 04/06/17 Range/Units 18:40 18:40 18:40 WBC 11.1 H (3.8-10.6) k/uL Neutrophils # 9.4 H (1.3-7.7) k/uL Lymphocytes # 0.4 L (1.0-4.8) k/uL BUN 22 H (9-20) mg/dL Glucose 155 H (74-99) mg/dL Plasma Lactic Acid Taj 2.4 H* (0.7-2.0) mmol/L Calcium 10.3 H (8.4-10.2) mg/dL Total Protein 8.4 H (6.3-8.2) g/dL Albumin 5.1 H (3.5-5.0) g/dL Urine Protein (Negative) Urine Glucose (UA) (Negative) Urine Ketones (Negative) Urine Mucus (None) /hpf 04/06/17 Range/Units 21:44 WBC (3.8-10.6) k/uL Neutrophils # (1.3-7.7) k/uL Lymphocytes # (1.0-4.8) k/uL BUN (9-20) mg/dL Glucose (74-99) mg/dL Plasma Lactic Acid Taj (0.7-2.0) mmol/L Calcium (8.4-10.2) mg/dL Total Protein (6.3-8.2) g/dL Albumin (3.5-5.0) g/dL Urine Protein 1+ H (Negative) Urine Glucose (UA) Trace H (Negative) Urine Ketones 2+ H (Negative) Urine Mucus Few H (None) /hpf Diabetes panel 04/06/17 Range/Units 18:40 Sodium 141 (137-145) mmol/L Potassium 4.3 (3.5-5.1) mmol/L Chloride 99 (98-107) mmol/L Carbon Dioxide 25 (22-30) mmol/L BUN 22 H (9-20) mg/dL Creatinine 0.80 (0.66-1.25) mg/dL Glucose 155 H (74-99) mg/dL Calcium 10.3 H (8.4-10.2) mg/dL AST 25 (17-59) U/L ALT 39 (21-72) U/L Alkaline Phosphatase 65 (38-126) U/L Total Protein 8.4 H (6.3-8.2) g/dL Albumin 5.1 H (3.5-5.0) g/dL Calcium panel 04/06/17 Range/Units 18:40 Calcium 10.3 H (8.4-10.2) mg/dL Albumin 5.1 H (3.5-5.0) g/dL Pituitary panel 04/06/17 Range/Units 18:40 Sodium 141 (137-145) mmol/L Potassium 4.3 (3.5-5.1) mmol/L Chloride 99 (98-107) mmol/L Carbon Dioxide 25 (22-30) mmol/L BUN 22 H (9-20) mg/dL Creatinine 0.80 (0.66-1.25) mg/dL Glucose 155 H (74-99) mg/dL Calcium 10.3 H (8.4-10.2) mg/dL Adrenal panel 04/06/17 Range/Units 18:40 Sodium 141 (137-145) mmol/L Potassium 4.3 (3.5-5.1) mmol/L Chloride 99 (98-107) mmol/L Carbon Dioxide 25 (22-30) mmol/L BUN 22 H (9-20) mg/dL Creatinine 0.80 (0.66-1.25) mg/dL Glucose 155 H (74-99) mg/dL Calcium 10.3 H (8.4-10.2) mg/dL Total Bilirubin 0.8 (0.2-1.3) mg/dL AST 25 (17-59) U/L ALT 39 (21-72) U/L Alkaline Phosphatase 65 (38-126) U/L Total Protein 8.4 H (6.3-8.2) g/dL Albumin 5.1 H (3.5-5.0) g/dL Assessment and Plan (1) Ileus Narrative/Plan: Continue nasogastric tube to suction. Consult Dr. Mayes for medical management. Repeat labs and x-rays tomorrow morning. Status: Acute
[2017-04-08 07:45] LABS: Basophils % (A) 0 %; CH 28.6; CHCM 33.1; Eosinophils # (A) 0.1 k/uL (0-0.7); Eosinophils % (A) 2 %; HCT 42.5 % (39.0-53.0); HDW 2.43; HGB 13.9 gm/dL (13.0-17.5); Luc # (Auto) 0.19; Luc % (Auto) 4; Lymphocytes # (A) 0.8 k/uL (1.0-4.8); Lymphocytes % (A) 15 %; MCH 28.3 pg (25.0-35.0); MCHC 32.6 g/dL (31.0-37.0); MCV 86.7 fL (80.0-100.0); Mean Platelet Volume 7.5; Monocytes # (A) 0.7 k/uL (0-1.0); Monocytes % (A) 13 %; Neutrophils # (A) 3.7 k/uL (1.3-7.7); Neutrophils % (A) 67 %; RDW 13.5 % (11.5-15.5); WBC 5.5 k/uL (3.8-10.6); WBC (Perox) 5.79
[2017-04-08 08:12] LABS: Blood Urea Nitrogen 18 mg/dL (9-20); Calcium 9.1 mg/dL (8.4-10.2); Chloride 105 mmol/L (98-107); Glucose 58 mg/dL (74-99); Non-African American GFR(MDRD) >60 (>60 ml/min/1.73 sqM); Potassium 3.7 mmol/L (3.5-5.1); Sodium 144 mmol/L (137-145)
[2017-04-08 08:18] LABS: Anion Gap 16 mmol/L; Carbon Dioxide 23 mmol/L (22-30)
[2017-04-08] MEDS: KETOROLAC 30 MG/ML 1 ML VIAL IVP PRN ×3 (08:38→19:43)
[2017-04-08] MEDS: PANTOPRAZOLE 40 MG/10 ML VIAL IV SCH (08:38)
--- NOTE | 2017-04-08 09:15 | XR ---
EXAMINATION TYPE: XR abdomen 2V DATE OF EXAM: 04/08/2017 CLINICAL HISTORY: Ileus per order. TECHNIQUE: Supine and upright views of the abdomen are obtained. COMPARISON: Abdominal x-ray from earlier today. CT abdomen and pelvis December 09, 2016. FINDINGS: There is interval placement of nasogastric tube which is coiled projecting superiorly but s till has tip below diaphragm. There are persistent gas prominent or distended colonic loop in the upp er abdomen. There is additional gas seen in nondistended bowel loops in the lower abdomen. Gas is see n a slightly prominent gas-filled bowel loops in the pelvis. There is interval improvement in number and size of dilated gas-filled bowel loops from prior. Multiple small calcified gallstones are redemo nstrated. No pneumoperitoneum is present. IMPRESSION: Interval placement of nasogastric tube. Persistent overall nonspecific bowel gas pattern. Degree and number of abnormal gas dilated bowel loops is noted improved after NG tube placement.
--- NOTE | 2017-04-08 17:56 | P.PN ---
Subjective Principal diagnosis: Ileus Patient doing better at this time. He is having liquid stools. No obvious pain. Abdomen is softer. Nasogastric tube output less. Abdominal x-rays improved. Objective - Vital Signs Vital signs: Vital Signs Temp 97.7 F 04/08/17 14:42 Pulse 67 04/08/17 14:42 Resp 18 04/08/17 14:42 BP 122/59 04/08/17 14:42 Pulse Ox 100 04/08/17 14:42 Intake & Output 04/07/17 04/08/17 04/08/17 18:59 06:59 18:59 Intake Total 320 640 320 Output Total 650 Balance 320 -10 320 Intake: Intake, IV Titration 320 640 320 Amount Sodium Chloride 0.9% 1, 320 640 320 000 ml @ 40 mls/hr IV . Q24H RADHA Rx#:[id number] Output: Gastric Drainage 650 Other: Voiding Method Toilet Toilet Toilet # Voids 2 1 3 # Bowel Movements 1 1 - Exam Abdomen: Soft, nondistended, nontender - Labs CBC & Chem 7: 04/08/17 07:26 04/08/17 07:26 Labs: Abnormal Lab Results - Last 24 Hours (Table) 04/08/17 04/08/17 Range/Units 07:26 07:26 Lymphocytes # 0.8 L (1.0-4.8) k/uL Glucose 58 L (74-99) mg/dL Microbiology - Last 24 Hours (Table) 04/06/17 18:40 Blood Culture - Preliminary Blood No Growth after 24 hours Assessment and Plan (1) Ileus Narrative/Plan: We'll remove the nasogastric tube and start liquid diet. Add lactulose. Status: Acute
[2017-04-08] MEDS: LACTULOSE 20 GM/30 ML CUP PO SCH (19:44)
[2017-04-09] MEDS: SODIUM CHLORIDE 0.9% 1,000 ML IV SCH ×2 (05:14→23:20)
[2017-04-09] MEDS: LACTULOSE 20 GM/30 ML CUP PO SCH ×2 (09:31→20:18)
[2017-04-09] MEDS: PANTOPRAZOLE 40 MG/10 ML VIAL IV SCH (09:31)
--- NOTE | 2017-04-09 11:27 | P.PN ---
Progress Note - Text The patient main stable. He has no significant abdominal pain. His abdominal distention is improved. On exam is lesser stable. His abdomen soft. Patient will continue to advance his diet. Hopefully discharge home in the a.m.
[2017-04-09] MEDS: KETOROLAC 30 MG/ML 1 ML VIAL IVP PRN ×2 (13:48→23:26)
[2017-04-09] MEDS: HEPARIN SODIUM,PORCINE 5,000 UNIT/ML 1 ML VIAL SQ SCH (20:18)
[2017-04-10] MEDS: LACTULOSE 20 GM/30 ML CUP PO SCH ×2 (07:33→21:20)
[2017-04-10] MEDS: HEPARIN SODIUM,PORCINE 5,000 UNIT/ML 1 ML VIAL SQ SCH ×2 (08:53→21:21)
[2017-04-10] MEDS: PANTOPRAZOLE 40 MG/10 ML VIAL IV SCH (08:53)
--- NOTE | 2017-04-10 12:10 | P.PN ---
Progress Note - Text The patient appears to have improved. He is tolerating his clear liquids yesterday. On exam his vital signs are stable. His abdomen soft. This diet will be advanced to regular diet today. Hopefully discharge home tomorrow.
--- NOTE | 2017-04-10 16:30 | CONS ---
DATE OF SERVICE: 04/09/2017 I am covering for Dr. Mayes. REASON FOR CONSULTATION: Advice regarding recent issues and other medical issues requested by Dr. León. HISTORY OF PRESENT ILLNESS: This 26-year-old gentleman with past medical history of seizure disorder, history of necrotizing enterocolitis, history of bowel resection, was admitted with multiple abdominal surgery. The patient admitted with ileus. Dr. León saw the patient is on bowel rest and NG tube to suction. The patient improved significantly. The patient is currently minimally verbal. Plasma lactic acid 2.5 improved to 1.8 with IV hydration. UA was noted as mentioned earlier. Abdominal x-ray was done yesterday which showed nonspecific bowel gas pattern. The patient has been closely monitored. PAST MEDICAL HISTORY: History of seizure disorder, history of multiple surgeries, necrotizing enterocolitis. Medications prior to admission: Lactulose 20 grams daily p.r.n ALLERGIES: None. Family history, social history and review of systems could not be taken. Per chart is breast cancer in the family. No smoking. PHYSICAL EXAMINATION: The patient is conscious but nonverbal at this time. Pulse is 68, blood pressure 120/52, respirations 16, temperature 97.1, pulse ox 100% on room air. HEENT: Conjunctivae normal. NECK: No jugular venous distention. CARDIOVASCULAR: S1, S2. No S3 or S4. No murmur. RESPIRATORY: Breath sounds diminished at the bases. No rhonchi, no crackles. ABDOMEN: Soft, mild diffuse distention present. Mild diffuse discomfort to palpation. No guarding, no rigidity. No mass palpable. Bowel sounds diminished. No ascites. No mass palpable. LEGS: No edema, no swelling. NERVOUS SYSTEM: Higher function as mentioned. Moves all four limbs. Diffusely weak. LYMPHATICS: No lymphadenopathy in the neck, axillae or groin. SKIN: No rash, ulcer or bleeding. LABS: WBC 11.1, plasma lactic acid 2.4. ASSESSMENT: 1. Abdominal distention and pain secondary to partial small bowel obstruction. 2. Increased plasma lactic acid secondary to dehydration present on admission. 3. Increased WBC possibly reactive. 4. History of seizure disorder. 5. History of necrotizing enterocolitis as well as multiple abdominal surgeries. 6. History of bowel resection. RECOMMENDATIONS AND DISCUSSION: In this 26-year-old gentleman who presented with multiple complex medical issues, I would recommend to continue the current medications, continue monitoring, continue symptomatic treatment. Otherwise proton pump inhibitors. DVT prophylaxis. I also recommend symptomatic treatment. NG tube has been removed. I would recommend to closely monitor and follow up with Dr. Mayes in the outpatient setting. Thank you, Dr. León, for letting us participate in the care of this patient. JANETH
[2017-04-10] MEDS: SODIUM CHLORIDE 0.9% 1,000 ML IV SCH (21:20)
[2017-04-11] MEDS: PANTOPRAZOLE 40 MG/10 ML VIAL IV SCH (09:26)
[2017-04-11] MEDS: LACTULOSE 20 GM/30 ML CUP PO SCH ×2 (09:26→09:43)
[2017-04-11] MEDS: HEPARIN SODIUM,PORCINE 5,000 UNIT/ML 1 ML VIAL SQ SCH (09:27)
--- NOTE | 2017-04-11 12:35 | PN ---
DATE OF SERVICE: 04/10/2017 This is a 26-year-old gentleman who was admitted with abdominal distension and pain secondary to partial small bowel obstruction. Small bowel obstruction has improved significantly. No chest pain or palpitation, no fever. On exam, alert and oriented x3. Pulse 94, blood pressure 121/81, respirations 16, temperature is 98 degrees, pulse ox 94% on room air. HEENT: Conjunctivae normal. NECK: No jugular venous distension. CARDIOVASCULAR SYSTEM: S1, S2, muffled. RESPIRATORY: Breath sounds diminished at the bases, a few scattered rhonchi, no crackles. ABDOMEN: Soft, nontender. LEGS: No edema, no swelling. NERVOUS SYSTEM: No focal deficits. Labs are CBC, BMP within normal limits. ASSESSMENT: 1. Abdominal distension and pain possibly secondary to partial small bowel obstruction. 2. Increased plasma lactic acidosis secondary to dehydration present on admission. 3. Increased WBC, possibly reactive. 4. Seizure disorder. RECOMMENDATION. Recommend to continue with the monitoring and symptomatic treatment. Repeat labs. Closely followup. Patient seems to improving with management. Further recommendations to follow. MTDD
[2017-04-11 15:09] VITALS: BP 121/72; PULSE 76; RESP 18; TEMP 96.8
--- NOTE | 2017-04-11 17:59 | P.DS ---
Providers Date of admission: 04/06/17 21:13 Expected date of discharge: 04/11/17 Attending physician: Trae León Consults: 04/07/17 17:32 Consult Physician Routine Consulting Provider: Jon Mayes Consult Reason/Comments: Medical management Do you want consulting provider notified?: Yes, Notify in am Primary care physician: Jon Mayes - Discharge Diagnosis(es) (1) Ileus Patient is well-known or service. He was admitted with ileus. He required a nasogastric tube placement. With bowel rest and gastric decompression his symptoms resolved. He never really had any complaints of pain although he is nonverbal. He is now tolerating a diet. He is moving his bowels nicely. His white blood cell count was initially elevated and that returned to normal. His lactic acid was also slightly elevated which normalized. He'll be discharged today with plans for outpatient follow-up by his primary care physicians. Abdomen is soft and nontender at this point. Current Visit: No Status: Acute Patient Condition at Discharge: Stable Plan - Discharge Summary New Discharge Prescriptions: No Action Lactulose 20 gm PO DAILY PRN PRN Reason: Constipation Discharge Medication List Lactulose 20 gm PO DAILY PRN 04/06/17 [History] Follow up Appointment(s)/Referral(s): Jon Mayes DO [Primary Care Provider] - 1-2 days
== END 2017-04-11 21:13 | disposition home or self-care (01) | DRG 389 ==
LOC: EC 17:13 → 5MS5E 21:13
PROVIDERS: ADMIT Surgery; ATTEND Surgery
DX: K56.60 Unspecified intestinal obstruction (principal); E87.2 Acidosis; R47.01 Aphasia; E86.0 Dehydration; F79 Unspecified intellectual disabilities; G40.909 Epilepsy, unspecified, not intractable, without status epilepticus; G80.9 Cerebral palsy, unspecified; Z78.1 Physical restraint status; Z80.3 Family history of malignant neoplasm of breast; Z82.0 Family history of epilepsy and other diseases of the nervous system
CPT/HCPCS: 36415; 43753; 71020; 74000; 74020; 80048; 80053; 81001; 82150; 83605; 83690; 85025; 87040

== ENCOUNTER 2017-05-10 14:04 | Inpatient (IN) | payer MEDICARE, OTHER ==
[2017-05-10] MEDS ORDERED: SODIUM CHLORIDE 0.9% 500 ML IV STA (16:04)
--- NOTE | 2017-05-10 16:07 | ED ---
General Adult HPI - General Chief complaint: Recheck/Abnormal Lab/Rx Stated complaint: not eating/possible blockage Time Seen by Provider: 05/10/17 14:35 Source: family, RN notes reviewed Mode of arrival: ambulatory Limitations: language barrier - History of Present Illness Initial comments: This is a 26-year-old male with past medical history significant for cognitive dysfunction since being a preemie. Patient has had multiple abdominal surgeries and has had multiple bowel obstructions. Family states he is not acting like himself and not eating over the last couple of days and that is indicative of him having another bowel obstruction. Patient does not normally vomit and he has not vomited today. Family states that he normally is excited to go to school but he has not been at all excited the last 2 days and again this is indicative of him having some sort of pain. Patient has had no fever there's been no diarrhea patient is not had any shortness of breath. patient cannot give any history. - Related Data Home Medications Medication Instructions Recorded Confirmed Lactulose 20 gm PO DAILY PRN 04/06/17 05/10/17 Psyllium Husk (with Sugar) 15 ml PO DAILY PRN 05/10/17 05/10/17 [Metamucil Powder] Allergies Allergy/AdvReac Type Severity Reaction Status Date / Time No Known Allergies Allergy Verified 05/10/17 15:52 Review of Systems ROS Statement: Those systems with pertinent positive or pertinent negative responses have been documented in the HPI. ROS Other: All systems not noted in ROS Statement are negative. 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 SEIZURE DISORDER-last seizure yrs ago -nOT CURENTLY ON MEDS. HX OF ESOPHAGEAL CONSTRICTION, PAST ASPIRATION(PT IS UNABLE TO THROW UP)-not on any special diet. History of Any Multi-Drug Resistant Organisms: None Reported Past Surgical History: Bowel Resection Additional Past Surgical History / Comment(s): 12/10/15 colonoscopy, oral surgery , esphogeal surgery-PT IS UNABLE TO THROW UP, partial lower intestine removed, shunt in brain, repaired a hole in his heart as -went in through his back , Past Anesthesia/Blood Transfusion Reactions: No Reported Reaction Past Psychological History: No Psychological Hx Reported Smoking Status: Never smoker Past Alcohol Use History: None Reported Past Drug Use History: None Reported - Past Family History Mother Family Medical History: Cancer Additional Family Medical History / Comment(s): BREAST CANCER-mother is 61 yrs old. Father Family Medical History: Seizure Disorder Additional Family Medical History / Comment(s): Father is 58 yrs old. General Exam - General Exam Comments Initial Comments: GENERAL: Patient is well-developed and well-nourished. Patient is nontoxic and well- hydrated and is in mild distress. ENT: Neck is soft and supple. No significant lymphadenopathy is noted. Oropharynx is clear. Moist mucous membranes. Neck has full range of motion without eliciting any pain. EYES: The sclera were anicteric and conjunctiva were pink and moist. Extraocular movements were intact and pupils were equal round and reactive to light. Eyelids were unremarkable. PULMONARY: Unlabored respirations. Good breath sounds bilaterally. No audible rales rhonchi or wheezing was noted. CARDIOVASCULAR: There is a regular rate and rhythm without any murmurs gallops or rubs. ABDOMEN: Abdomen is diffusely tender SKIN: Skin is clear with no lesions or rashes and otherwise unremarkable. NEUROLOGIC: Patient is alert and oriented 0 and according to family that is his baseline. MUSCULOSKELETAL: Normal extremities with adequate strength and full range of motion. No lower extremity swelling or edema. No calf tenderness. Limitations: language barrier Course Vital Signs 05/10/17 14:23 Temperature 98.1 F Pulse Rate 118 H Respiratory 20 Rate Blood Pressure 142/91 O2 Sat by Pulse 98 Oximetry Procedures - Procedures Initial comment: I placed an NG tube and the patient and verified with an x-ray. Medical Decision Making - Medical Decision Making X-ray shows bowel obstruction. I spoke with Dr. Mayes and he agreed to admit the patient and consult Dr. Barnes. I wrote admitting orders. - Lab Data Result diagrams: 05/10/17 16:16 05/10/17 16:16 Lab Results 05/10/17 05/10/17 05/10/17 Range/Units 16:16 16:16 17:36 WBC 9.4 (3.8-10.6) k/uL RBC 5.60 (4.30-5.90) m/uL Hgb 15.7 (13.0-17.5) gm/dL Hct 46.1 (39.0-53.0) % MCV 82.4 (80.0-100.0) fL MCH 28.0 (25.0-35.0) pg MCHC 34.0 (31.0-37.0) g/dL RDW 12.7 (11.5-15.5) % Plt Count 308 (150-450) k/uL Neutrophils % 80 % Lymphocytes % 8 % Monocytes % 9 % Eosinophils % 1 % Basophils % 0 % Neutrophils # 7.5 (1.3-7.7) k/uL Lymphocytes # 0.7 L (1.0-4.8) k/uL Monocytes # 0.9 (0-1.0) k/uL Eosinophils # 0.1 (0-0.7) k/uL Basophils # 0.0 (0-0.2) k/uL Sodium 140 (137-145) mmol/L Potassium 4.4 (3.5-5.1) mmol/L Chloride 98 (98-107) mmol/L Carbon Dioxide 25 (22-30) mmol/L Anion Gap 17 mmol/L BUN 21 H (9-20) mg/dL Creatinine 0.70 (0.66-1.25) mg/dL Est GFR (MDRD) Af Amer >60 (>60 ml/min/1.73 sqM) Est GFR (MDRD) Non-Af >60 (>60 ml/min/1.73 sqM) Glucose 129 H (74-99) mg/dL Calcium 10.3 H (8.4-10.2) mg/dL Total Bilirubin 0.5 (0.2-1.3) mg/dL AST 21 (17-59) U/L ALT 40 (21-72) U/L Alkaline Phosphatase 60 (38-126) U/L Total Protein 8.1 (6.3-8.2) g/dL Albumin 4.9 (3.5-5.0) g/dL Amylase 34 (30-110) U/L Lipase 33 (23-300) U/L Urine Color Yellow Urine Appearance Clear (Clear) Urine pH 6.0 (5.0-8.0) Ur Specific [place] 1.033 (1.001-1.035) Urine Protein 3+ H (Negative) Urine Glucose (UA) Trace H (Negative) Urine Ketones 1+ H (Negative) Urine Blood Moderate H (Negative) Urine Nitrite Negative (Negative) Urine Bilirubin Negative (Negative) Urine Urobilinogen 2.0 (<2.0) mg/dL Ur Leukocyte Esterase Negative (Negative) Urine RBC 56 H (0-5) /hpf Urine WBC 2 (0-5) /hpf Ur Squamous Epith Cells <1 (0-4) /hpf Hyaline Casts 8 H (0-2) /lpf Urine Mucus Many H (None) /hpf Disposition Clinical Impression: Bowel obstruction Disposition: ADMITTED IP TO THIS HOSP Referrals: Jon Mayes DO [Primary Care Provider] - 1-2 days Time of Disposition: 18:22
[2017-05-10 16:33] LABS: Basophils % (A) 0 %; CH 28.1; CHCM 34.2; Eosinophils # (A) 0.1 k/uL (0-0.7); Eosinophils % (A) 1 %; HCT 46.1 % (39.0-53.0); HDW 2.44; HGB 15.7 gm/dL (13.0-17.5); Luc # (Auto) 0.18; Luc % (Auto) 2; Lymphocytes # (A) 0.7 k/uL (1.0-4.8); Lymphocytes % (A) 8 %; MCV 82.4 fL (80.0-100.0); Mean Platelet Volume 7.3; Monocytes # (A) 0.9 k/uL (0-1.0); Monocytes % (A) 9 %; Neutrophils # (A) 7.5 k/uL (1.3-7.7); Neutrophils % (A) 80 %; RDW 12.7 % (11.5-15.5); WBC 9.4 k/uL (3.8-10.6); WBC (Perox) 9.54
[2017-05-10 16:34] LABS: ALT 40 U/L (21-72); AST 21 U/L (17-59); Alkaline Phosphatase 60 U/L (38-126); Amylase 34 U/L (30-110); Anion Gap 17 mmol/L; Blood Urea Nitrogen 21 mg/dL (9-20); Calcium 10.3 mg/dL (8.4-10.2); Carbon Dioxide 25 mmol/L (22-30); Chloride 98 mmol/L (98-107); Glucose 129 mg/dL (74-99); Non-African American GFR(MDRD) >60 (>60 ml/min/1.73 sqM); Potassium 4.4 mmol/L (3.5-5.1); Sodium 140 mmol/L (137-145); Total Bilirubin 0.5 mg/dL (0.2-1.3); Total Protein 8.1 g/dL (6.3-8.2)
--- NOTE | 2017-05-10 16:35 | XR ---
EXAMINATION TYPE: XR KUB DATE OF EXAM: 05/10/2017 COMPARISON: [id number] HISTORY: Pain TECHNIQUE: One view abdominal series FINDINGS: The osseous structures are intact. The bowel gas pattern is nonspecific. Lung bases are clear. Jame edly dilated bowel loops are seen. IMPRESSION: 1. Markedly dilated bowel loops. Obstruction in the differential diagnosis. Consider CT scan.
[2017-05-10] MEDS: LIDOCAINE URO-JET JELLY 2% 5 ML KIT URETHRAL ONE ×2 (17:22→17:28)
[2017-05-10 17:42] LABS: Appearance,Urine Clear (Clear); Bilirubin,Urine Negative (Negative); Glucose,Urine (UA) Trace (Negative); Ketones,Urine 1+ (Negative); Leukocyte Esterase,Urine Negative (Negative); Mucus,Urine Many /hpf; Nitrite,Urine Negative (Negative); Particle Count 12573; Protein,Urine 3+ (Negative); RBC,Urine 56 /hpf (0-5); Specific Gravity,Urine 1.033 (1.001-1.035); Squamous Epithelial Cell,Urine <1 /hpf (0-4); UA Billing (MACRO vs. MICRO) MICRO; WBC,Urine 2 /hpf (0-5)
[2017-05-10] MEDS ORDERED: SODIUM CHLORIDE 0.9% 1,000 ML IV ONE (18:24)
--- NOTE | 2017-05-10 18:47 | XR ---
EXAMINATION TYPE: XR abdomen 1V DATE OF EXAM: 05/10/2017 COMPARISON: Today HISTORY: Check tube placement TECHNIQUE: Single view FINDINGS: Nasogastric tube is noted and the tip is probably in the body of the stomach. There is a la rge amount of intestinal gas. I see no free air. Lung bases are clear. IMPRESSION: NG tube appears in good position. There is intestinal gas consistent with generalized ile us.
[2017-05-10] MEDS ORDERED: ACETAMINOPHEN IV (For NPO) 1,000 MG in EMPTY BAG 1 BAG IVPB PRN (21:45)
[2017-05-10] MEDS ORDERED: LORazepam 2 MG/ML SYRINGE IV PRN (21:50)
[2017-05-11 10:35] VITALS: BMI 18.0
--- NOTE | 2017-05-11 12:06 | P.HPIM ---
History of Present Illness H&P Date: 05/11/17 Chief Complaint: Abdominal pain 26-year-old male who was brought to the ER with a chief complaint of abdominal pain per his family. According to the emergency room notes, the patients family noticed that he was not eating as much as normal and was not acting like himself. 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 The patient has undergone multiple abdominal surgeries and has extensive scarring to his abdomen. In the emergency room, a KUB X-ray was completed which demonstrated markedly dilated bowel loops and the possibility of a bowel obstruction. A NG tube was inserted. A follow-up chest x-ray showed an NG tube with the tip in the stomach. It did not show any free air. There was intestinal gas which was consistent with generalized ileus. Apparently the patient attends an adult life skills program and Dr. Mayes was notified by the staff at the facility that Dr. León wanted the patient to stop taking his Metamucil. He was seen this morning on rounds with Dr. Mayes. He is nonverbal at baseline. The patient's sister is his guardian per Dr Mayes. He appears comfortable. No signs of pain or discomfort. No grimacing upon palpation of the abdomen. NG tube remains intact to LIS. He remains NPO. His lab work was reviewed. His vital signs remain stable. He has been afebrile. Consults were placed to surgery, Dr. 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 SEIZURE DISORDER-last seizure yrs ago -nOT CURENTLY ON MEDS. HX OF ESOPHAGEAL CONSTRICTION, PAST ASPIRATION(PT IS UNABLE TO THROW UP)-not on any special diet. 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 Father Family Medical History: Seizure Disorder Additional Family Medical History / Comment(s): Father is 58 yrs old. Medications and Allergies Home Medications Medication Instructions Recorded Confirmed Type Lactulose 20 gm PO DAILY PRN 04/06/17 05/10/17 History Psyllium Husk (with Sugar) 15 ml PO DAILY PRN 05/10/17 05/10/17 History [Metamucil Powder] Allergies Allergy/AdvReac Type Severity Reaction Status Date / Time No Known Allergies Allergy Verified 05/10/17 15:52 Physical Exam Vitals: Vital Signs Temp Pulse Pulse Resp BP BP Pulse Ox 05/11/17 08:00 84 18 05/11/17 07:00 97.3 F L 84 18 140/83 97 05/10/17 23:00 97.3 F L 109 H 16 131/81 95 05/10/17 19:20 97.5 F L 108 H 16 143/88 96 05/10/17 18:47 98.6 F 114 H 16 155/89 97 05/10/17 14:23 98.1 F 118 H 20 142/91 98 Intake and Output 05/10/17 05/11/17 05/11/17 22:59 06:59 14:59 Intake Total 400 Output Total 550 Balance -150 Intake: IV 400 Sodium Chloride 0.9% 1, 400 000 ml @ 100 mls/hr IV . Q10H ONE Rx#:[id number] Output: Gastric Drainage 550 Other: Voiding Method Diaper Toilet Incontinent Diaper Incontinent # Voids 2 1 1 Weight 55.338 kg Patient Weight 05/12/17 06:59 Weight 55.338 kg GENERAL: Awake and alert. Appears in no acute distress. Resting comfortably RESPIRATORY: Lungs clear bilaterally. No use of accessory muscles. Patient maintaining oxygen saturation greater than 92% on room air. CARDIOVASCULAR: S1 and S2 noted. No murmurs auscultated. No JVD noted. EXTREMITIES: No edema noted. Palpable pedal pulses +2. ABDOMEN: Extensive scarring noted to abdomen. Abdomen soft. bowel sounds auscultated 4 quadrants. No grimacing or guarding noted upon palpation. Results CBC & Chem 7: 05/10/17 16:16 05/10/17 16:16 Labs: Abnormal Lab Results - Last 24 Hours (Table) 05/10/17 05/10/17 05/10/17 Range/Units 16:16 16:16 17:36 Lymphocytes # 0.7 L (1.0-4.8) k/uL BUN 21 H (9-20) mg/dL Glucose 129 H (74-99) mg/dL Calcium 10.3 H (8.4-10.2) mg/dL Urine Protein 3+ H (Negative) Urine Glucose (UA) Trace H (Negative) Urine Ketones 1+ H (Negative) Urine Blood Moderate H (Negative) Urine RBC 56 H (0-5) /hpf Hyaline Casts 8 H (0-2) /lpf Urine Mucus Many H (None) /hpf Thrombosis Risk Factor Assmnt - Choose All That Apply Any of the Below Risk Factors Present?: No Other Risk Factors: No Thrombosis Risk Factor Assessment Level: Very Low Risk Assessment and Plan Plan: ASSESSMENT: -Bowel obstruction, acute, present on admission -History of bowel resection -History of multiple bowel obstructions -History of mental retardation and cerebral palsy as a result of premature PLAN: -Dr. León on consult. Appreciate recommendations and input -Continue NG tube to LIS -Continue NPO status -Hold oral home meds until patient able to tolerate PO intake -Initiate IV fluid hydration at 75cc/hr while NPO -Monitor labs -GI prophylaxis: Protonix 40mg IV BID -DVT prophylaxis: Heparin 5000 units subcu Q8 hours -Monitor vital signs and address as appropriate The above impression and plan of care have been discussed and directed by signing physician. Venus Leung, nurse practitioner, acting as scribe for signing physician.
--- NOTE | 2017-05-11 12:51 | P.GSCN ---
History of Present Illness Consult date: 05/11/17 Reason for Consult: Ileus History of present illness: Patient is a 26-year-old male known to our service. He was just hospitalized one month ago with an ileus that responded well to conservative management. He apparently came back to the hospital with abdominal bloating. X-rays showed dilated bowel loops once again. A nasogastric tube was placed. The patient is nonverbal. The nasogastric tube was removed presently. Not sure if this came out intentionally or not. 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 SEIZURE DISORDER-last seizure yrs ago -nOT CURENTLY ON MEDS. HX OF ESOPHAGEAL CONSTRICTION, PAST ASPIRATION(PT IS UNABLE TO THROW UP)-not on any special diet. 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 Father Family Medical History: Seizure Disorder Additional Family Medical History / Comment(s): Father is 58 yrs old. Medications and Allergies Home Medications Medication Instructions Recorded Confirmed Type Lactulose 20 gm PO DAILY PRN 04/06/17 05/10/17 History Psyllium Husk (with Sugar) 15 ml PO DAILY PRN 05/10/17 05/10/17 History [Metamucil Powder] Allergies Allergy/AdvReac Type Severity Reaction Status Date / Time No Known Allergies Allergy Verified 05/10/17 15:52 Surgical - Exam Vital Signs Temp Pulse Resp BP Pulse Ox 98.1 F 118 H 20 142/91 98 09/12/17 14:23 05/10/17 14:23 05/10/17 14:23 05/10/17 14:23 05/10/17 14:23 Physical exam: General: Well-developed, well-nourished HEENT: Normocephalic, sclerae nonicteric Abdomen: Mild distention, multiple abdominal scars noted, nontender Extremities: No edema Neuro: Alert and oriented Results - Labs 05/10/17 16:16 05/10/17 16:16 Abnormal Lab Results - Last 24 Hours (Table) 05/10/17 05/10/17 05/10/17 Range/Units 16:16 16:16 17:36 Lymphocytes # 0.7 L (1.0-4.8) k/uL BUN 21 H (9-20) mg/dL Glucose 129 H (74-99) mg/dL Calcium 10.3 H (8.4-10.2) mg/dL Urine Protein 3+ H (Negative) Urine Glucose (UA) Trace H (Negative) Urine Ketones 1+ H (Negative) Urine Blood Moderate H (Negative) Urine RBC 56 H (0-5) /hpf Hyaline Casts 8 H (0-2) /lpf Urine Mucus Many H (None) /hpf Diabetes panel 05/10/17 Range/Units 16:16 Sodium 140 (137-145) mmol/L Potassium 4.4 (3.5-5.1) mmol/L Chloride 98 (98-107) mmol/L Carbon Dioxide 25 (22-30) mmol/L BUN 21 H (9-20) mg/dL Creatinine 0.70 (0.66-1.25) mg/dL Glucose 129 H (74-99) mg/dL Calcium 10.3 H (8.4-10.2) mg/dL AST 21 (17-59) U/L ALT 40 (21-72) U/L Alkaline Phosphatase 60 (38-126) U/L Total Protein 8.1 (6.3-8.2) g/dL Albumin 4.9 (3.5-5.0) g/dL Calcium panel 05/10/17 Range/Units 16:16 Calcium 10.3 H (8.4-10.2) mg/dL Albumin 4.9 (3.5-5.0) g/dL Pituitary panel 05/10/17 Range/Units 16:16 Sodium 140 (137-145) mmol/L Potassium 4.4 (3.5-5.1) mmol/L Chloride 98 (98-107) mmol/L Carbon Dioxide 25 (22-30) mmol/L BUN 21 H (9-20) mg/dL Creatinine 0.70 (0.66-1.25) mg/dL Glucose 129 H (74-99) mg/dL Calcium 10.3 H (8.4-10.2) mg/dL Adrenal panel 05/10/17 Range/Units 16:16 Sodium 140 (137-145) mmol/L Potassium 4.4 (3.5-5.1) mmol/L Chloride 98 (98-107) mmol/L Carbon Dioxide 25 (22-30) mmol/L BUN 21 H (9-20) mg/dL Creatinine 0.70 (0.66-1.25) mg/dL Glucose 129 H (74-99) mg/dL Calcium 10.3 H (8.4-10.2) mg/dL Total Bilirubin 0.5 (0.2-1.3) mg/dL AST 21 (17-59) U/L ALT 40 (21-72) U/L Alkaline Phosphatase 60 (38-126) U/L Total Protein 8.1 (6.3-8.2) g/dL Albumin 4.9 (3.5-5.0) g/dL Assessment and Plan (1) Ileus Narrative/Plan: Will check abdominal x-rays tomorrow. Keep nothing by mouth for now. Status: Acute
[2017-05-11] MEDS: SODIUM CHLORIDE 0.9% 1,000 ML IV SCH (13:01)
[2017-05-11] MEDS: HEPARIN SODIUM,PORCINE 5,000 UNIT/ML 1 ML VIAL SQ SCH (17:06)
[2017-05-11] MEDS: PANTOPRAZOLE 40 MG/10 ML VIAL IVP SCH (20:41)
[2017-05-12] MEDS: HEPARIN SODIUM,PORCINE 5,000 UNIT/ML 1 ML VIAL SQ SCH ×3 (00:32→17:07)
[2017-05-12] MEDS: SODIUM CHLORIDE 0.9% 1,000 ML IV SCH ×2 (00:35→17:22)
--- NOTE | 2017-05-12 07:43 | XR ---
EXAMINATION TYPE: XR abdomen 2V DATE OF EXAM: 05/12/2017 CLINICAL HISTORY: Ileus progress study. TECHNIQUE: Supine and upright views of the abdomen are obtained. COMPARISON: Abdominal x-ray from [address] abdomen and pelvis December 09, 2016. FINDINGS: There is interval removal of nasogastric tube. Gas is seen in nondistended stomach currentl y. There are gas prominent small and large bowel loops throughout the abdomen and pelvis with several air-fluid levels. Degree of gaseous distention of the upper to mid bowel loops is fairly stable. The re is some improvement in degree of gaseous distention of lower bowel loops. Colonic loops in the per iphery show no suspicious gaseous dilatation. Gallbladder stones are identified. No pneumoperitoneum is seen. Lung bases are clear. IMPRESSION: Overall nonspecific bowel gas pattern remains present. Some improvement in gas dilated b owel loops in the lower abdomen and pelvis. Interval removal of nasogastric tube noted.
--- NOTE | 2017-05-12 08:28 | P.PN ---
Subjective Principal diagnosis: 26 year old male who was seen and examined by Dr. Mayes. Patient was admitted for abdominal pain and diagnosed with a bowel obstruction. The patient had a NG tube but he accidentally removed it yesterday. An abdominal x-ray was completed this morning which revealed nonspecific bowel gas pattern and some improvement in the dilation of the bowel loops of the lower abdomen. He remains NPO. Dr León is consulted. The patient is nonverbal. He does appear comfortable this morning. No grimacing upon palpation of abdomen. He remains afebrile. His vital signs are stable. He is maintaining oxygen saturations greater than 92% on room air. No new labs available. Objective - Vital Signs Vital signs: Vital Signs Temp 97.5 F L 05/12/17 07:00 Pulse 82 05/12/17 07:00 Resp 18 05/12/17 07:00 BP 96/51 05/12/17 07:00 Pulse Ox 98 05/12/17 07:00 Intake & Output 05/11/17 05/12/17 05/12/17 18:59 06:59 18:59 Intake Total 675 Output Total 300 Balance -300 675 Weight 55.338 kg Intake: IV 675 Sodium Chloride 0.9% 1, 675 000 ml @ 75 mls/hr IV . [id number] Rx#:[id number] Output: Drainage 300 Head 300 Other: Voiding Method Toilet Toilet Diaper Diaper Incontinent Incontinent # Voids 3 2 - Exam GENERAL: Awake and alert. Appears in no acute distress. Resting comfortably RESPIRATORY: Lungs clear bilaterally. No use of accessory muscles. Patient maintaining oxygen saturation greater than 92% on room air. CARDIOVASCULAR: S1 and S2 noted. No murmurs auscultated. No JVD noted. EXTREMITIES: No edema noted. Palpable pedal pulses +2. ABDOMEN: Extensive scarring noted to abdomen. Abdomen soft. bowel sounds auscultated 4 quadrants. No grimacing or guarding noted upon palpation. - Labs CBC & Chem 7: 05/10/17 16:16 05/10/17 16:16 Assessment and Plan Plan: ASSESSMENT: -Bowel obstruction, acute, present on admission -History of bowel resection -History of multiple bowel obstructions -History of mental retardation and cerebral palsy as a result of premature PLAN: -Dr. León on consult. Appreciate recommendations and input -Recommend advancing patient to clear liquid diet if okay with Dr. León -Hold oral home meds until patient able to tolerate PO intake -Continue IV fluid hydration at 75cc/hr while NPO -Monitor labs -GI prophylaxis: Protonix 40mg IV BID -DVT prophylaxis: Heparin 5000 units subcu Q8 hours -Monitor vital signs and address as appropriate The above impression and plan of care have been discussed and directed by signing physician. Venus Leung, nurse practitioner, acting as scribe for signing physician.
[2017-05-12] MEDS: PANTOPRAZOLE 40 MG/10 ML VIAL IVP SCH ×2 (08:45→20:20)
--- NOTE | 2017-05-12 09:53 | P.PN ---
<Inez Feng - Last Filed: 05/12/17 09:40> Subjective 26-year-old nonverbal male being seen on rounds this morning for surgical management for monitoring ileus is currently sitting up on the edge of the bed appears in no acute distress no reports of nausea vomiting incontinent urine no document stool patient is well known to Dr. León surgical service. Abdominal x-ray this morning shows an improvement in the dilatation of the bowel loops of the lower abdomen. Objective - Vital Signs Vital signs: Vital Signs Temp 97.5 F L 05/12/17 07:00 Pulse 82 05/12/17 07:00 Resp 18 05/12/17 07:00 BP 96/51 05/12/17 07:00 Pulse Ox 98 05/12/17 07:00 Intake & Output 05/11/17 05/12/17 05/12/17 18:59 06:59 18:59 Intake Total 675 Output Total 300 Balance -300 675 Weight 55.338 kg Intake: IV 675 Sodium Chloride 0.9% 1, 675 000 ml @ 75 mls/hr IV . [id number] [facility] Rx#:[id number] Output: Drainage 300 Head 300 Other: Voiding Method Toilet Toilet Diaper Diaper Incontinent Incontinent # Voids 3 2 - Exam Physical exam 26-year-old thin appearing male sitting up on the edge of the bed appears in no acute distress awake alert nonverbal Lungs essentially clear with adequate air movement on room air sats 90-93% no shortness of breath noted no cough noted Heart S1-S2 audible regular no murmur noted Abdomen soft not distended no facial grimacing with palpitation to the abdominal wall all tones active present no reports of nausea vomiting incontinence urine no stool extensive scarring to the abdominal wall Extremities muscle wasting to the upper and lower extremities no edema noted - Labs CBC & Chem 7: 05/10/17 16:16 05/10/17 16:16 Assessment and Plan Plan: Impression Present on admission abdominal pain suspect due to early ileus resolving Severely premature at resulting in cerebral palsy and mental retardation cognitive impairment on verbal History of multiple abdominal surgeries with bowel obstruction Plan Start clear liquid diet advance as tolerated Restart home meds as appropriate and tolerating clear liquid No evidence of an acute surgical abdomen Will follow surgical course addressing clinical issues as they arise The above impression and plan of care have been discussed and directed by signing physician. Inez Feng nurse practitioner acting as scribe for signing physician. <Trae León - Last Filed: 05/12/17 16:33> Objective - Vital Signs Vital signs: Vital Signs Temp 98.2 F 05/12/17 14:52 Pulse 78 05/12/17 16:00 Resp 18 05/12/17 16:00 BP 144/70 05/12/17 14:52 Pulse Ox 98 05/12/17 07:00 Intake & Output 05/11/17 05/12/17 05/12/17 18:59 06:59 18:59 Intake Total 675 1085 Output Total 300 Balance -731 519 4146 Weight 55.338 kg Intake: IV 675 Sodium Chloride 0.9% 1, 675 000 ml @ 75 mls/hr IV . [id number] [facility] Rx#:[id number] Intake, IV Titration 525 Amount Sodium Chloride 0.9% 1, 525 000 ml @ 75 mls/hr IV . [id number] [facility] Rx#:[id number] Oral 560 Output: Drainage 300 Head 300 Other: Voiding Method Toilet Toilet Toilet Diaper Diaper Diaper Incontinent Incontinent Incontinent # Voids 3 2 4 - Labs CBC & Chem 7: 05/10/17 16:16 05/10/17 16:16 Assessment and Plan (1) Ileus Status: Acute Plan: Patient doing well at this time. Agree with above. We'll gradually advance diet. Hopefully discharge tomorrow.
[2017-05-13] MEDS: HEPARIN SODIUM,PORCINE 5,000 UNIT/ML 1 ML VIAL SQ SCH ×4 (00:23→23:27)
[2017-05-13] MEDS: SODIUM CHLORIDE 0.9% 1,000 ML IV SCH ×2 (03:43→15:33)
[2017-05-13] MEDS ORDERED: LACTULOSE 20 GM/30 ML CUP PO PRN (08:00)
[2017-05-13] MEDS ORDERED: PSYLLIUM HUSK 100% 6 GM PACKET PO PRN (08:00)
--- NOTE | 2017-05-13 09:55 | P.PN ---
Subjective Principal diagnosis: 26 year old male who was seen and examined by Dr. Mayes. Patient was admitted for abdominal pain and diagnosed with a bowel obstruction. The patient is nonverbal. He does appear comfortable this morning. No grimacing upon palpation of abdomen. He remains afebrile. His vital signs are stable. He is maintaining oxygen saturations greater than 92% on room air. No new labs available. The patient was started on clear liquids yesterday, which he has been tolerating well. We will advance him to full liquids. Per nursing, patient has not had not a bowel movement but is passing a lot of gas. Patient to receive a dose of lactulose and metamucil (patients home meds) this morning. Objective - Vital Signs Vital signs: Vital Signs Temp 98.7 F 05/13/17 07:00 Pulse 63 05/13/17 08:00 Resp 20 05/13/17 08:00 BP 101/53 05/13/17 07:00 Pulse Ox 96 05/13/17 07:00 Intake & Output 05/12/17 05/13/17 05/13/17 18:59 06:59 18:59 Intake Total 1085 1260 Balance 1085 1260 Intake: IV 0 Sodium Chloride 0.9% 1, 0 000 ml @ 75 mls/hr IV . [id number] [facility] Rx#:[id number] Intake, IV Titration 525 Amount Sodium Chloride 0.9% 1, 525 000 ml @ 75 mls/hr IV . [id number] [facility] Rx#:[id number] Oral 560 1260 Other: Voiding Method Toilet Toilet Toilet Diaper Diaper Diaper Incontinent Incontinent Incontinent # Voids 4 2 - Exam GENERAL: Awake and alert. Appears in no acute distress. Resting comfortably RESPIRATORY: Lungs clear bilaterally. No use of accessory muscles. Patient maintaining oxygen saturation greater than 92% on room air. CARDIOVASCULAR: S1 and S2 noted. No murmurs auscultated. No JVD noted. EXTREMITIES: No edema noted. Palpable pedal pulses +2. ABDOMEN: Extensive scarring noted to abdomen. Abdomen soft. bowel sounds auscultated 4 quadrants. No grimacing or guarding noted upon palpation. - Labs CBC & Chem 7: 05/10/17 16:16 05/10/17 16:16 Assessment and Plan Plan: ASSESSMENT: -Bowel obstruction, acute, present on admission -History of bowel resection -History of multiple bowel obstructions -History of mental retardation and cerebral palsy as a result of premature PLAN: -Dr. León on consult. Appreciate recommendations and input -Advance diet to full liquid -Give dose of metamucil and lactulose this morning -Decrease IVF to 50cc/hr -Monitor labs -GI prophylaxis: Protonix 40mg IV BID -DVT prophylaxis: Heparin 5000 units subcu Q8 hours -Monitor vital signs and address as appropriate -Anticipate discharge within the next 24-48 hours The above impression and plan of care have been discussed and directed by signing physician. Venus Leung, nurse practitioner, acting as scribe for signing physician.
[2017-05-13] MEDS: PANTOPRAZOLE 40 MG/10 ML VIAL IVP SCH (10:01)
--- NOTE | 2017-05-13 10:57 | P.PN ---
<Inez Feng M - Last Filed: 05/13/17 10:51> Subjective 26-year-old male nonverbal sitting up in bed being seen in follow-up visit. Nursing reports patient had a large formed stool this morning. Abdomen is soft not distended. Tolerating a diet. No reports of nausea vomiting The attending indicates that they will plan on discharging within the next 24 hours. Objective - Vital Signs Vital signs: Vital Signs Temp 98.7 F 05/13/17 07:00 Pulse 63 05/13/17 08:00 Resp 20 05/13/17 08:00 BP 101/53 05/13/17 07:00 Pulse Ox 96 05/13/17 07:00 Intake & Output 05/12/17 05/13/17 05/13/17 18:59 06:59 18:59 Intake Total 1085 1260 Balance 1085 1260 Intake: IV 0 Sodium Chloride 0.9% 1, 0 000 ml @ 75 mls/hr IV . [id number] [facility] Rx#:[id number] Intake, IV Titration 525 Amount Sodium Chloride 0.9% 1, 525 000 ml @ 75 mls/hr IV . [id number] [facility] Rx#:[id number] Oral 560 1260 Other: Voiding Method Toilet Toilet Toilet Diaper Diaper Diaper Incontinent Incontinent Incontinent # Voids 4 2 - Exam Physical exam 26-year-old nonverbal male sitting up in bed pleasant cooperative Lungs essentially clear on room air no shortness breath no cough Heart S1-S2 audible regular Abdomen flat nontender bowel tones present passing gas rectally nursing reports one large formed stools this morning incontinent urine no nausea no vomiting tolerating diet Extremities no edema - Labs CBC & Chem 7: 05/10/17 16:16 05/10/17 16:16 Assessment and Plan Plan: Impression Present on admission abdominal pain suspect due to early ileus resolving Severely premature at resulting in cerebral palsy and mental retardation cognitive impairment on verbal History of multiple abdominal surgeries with bowel obstruction Plan advance diet as tolerated Restart home meds as appropriate and tolerating clear liquid No evidence of an acute surgical abdomen Agree with anticipated discharge in the next 24 hours if medically stable The above impression and plan of care have been discussed and directed by signing physician. Inez Feng nurse practitioner acting as scribe for signing physician. <Trae León - Last Filed: 05/13/17 16:05> Objective - Vital Signs Vital signs: Vital Signs Temp 98.7 F 05/13/17 07:00 Pulse 63 05/13/17 08:00 Resp 20 05/13/17 08:00 BP 101/53 05/13/17 07:00 Pulse Ox 96 05/13/17 07:00 Intake & Output 05/12/17 05/13/17 05/13/17 18:59 06:59 18:59 Intake Total 1085 1260 1530 Balance 1085 1260 1530 Weight 55.338 kg Intake: IV 0 Sodium Chloride 0.9% 1, 0 000 ml @ 75 mls/hr IV . [id number] [facility] Rx#:[id number] Intake, IV Titration 525 450 Amount Sodium Chloride 0.9% 1, 525 450 000 ml @ 75 mls/hr IV . [id number] [facility] Rx#:[id number] Oral 560 1260 1080 Other: Voiding Method Toilet Toilet Toilet Diaper Diaper Diaper Incontinent Incontinent Incontinent # Voids 4 2 4 - Labs CBC & Chem 7: 05/10/17 16:16 05/10/17 16:16 Assessment and Plan (1) Ileus Status: Acute Plan: As above. The patient had a large bowel movement. Tolerating diet. No evidence of abdominal pain. We'll sign off at this point. Please contact if needed.
[2017-05-13] MEDS: PANTOPRAZOLE 40 MG TABLET PO SCH (16:42)
[2017-05-14 07:50] VITALS: BP 125/70; RESP 18; TEMP 96.5
[2017-05-14] MEDS: SODIUM CHLORIDE 0.9% 1,000 ML IV SCH (08:10)
[2017-05-14] MEDS: PANTOPRAZOLE 40 MG TABLET PO SCH (08:18)
[2017-05-14] MEDS: HEPARIN SODIUM,PORCINE 5,000 UNIT/ML 1 ML VIAL SQ SCH (08:18)
[2017-05-14 08:38] VITALS: PULSE 78
--- NOTE | 2017-05-14 11:49 | P.DS ---
Providers Date of admission: 05/10/17 18:25 Attending physician: Jon Mayes Consults: 05/10/17 18:24 Consult Physician Urgent Consulting Provider: Trae León Reason/Comments: Bowel obstruction Do you want consulting provider notified?: Yes Primary care physician: Jon Mayes Hospital Course: 26-year-old was admitted for partial bowel obstruction did have bowel movements is cleared for discharge and is being discharged in stable medical condition to home. Plan - Discharge Summary New Discharge Prescriptions: No Action Lactulose 20 gm PO DAILY PRN PRN Reason: Constipation Psyllium Husk (with Sugar) [Metamucil Powder] 15 ml PO DAILY PRN PRN Reason: Constipation Discharge Medication List Lactulose 20 gm PO DAILY PRN 04/06/17 [History] Psyllium Husk (with Sugar) [Metamucil Powder] 15 ml PO DAILY PRN 05/10/17 [ History] Follow up Appointment(s)/Referral(s): Jon Mayes DO [Primary Care Provider] - 3 Days Discharge Disposition: HOME SELF-CARE
== END 2017-05-14 12:57 | disposition home or self-care (01) | DRG 389 ==
LOC: EC 14:04 → 5MS5E 18:25
PROVIDERS: ADMIT Family Medicine; ATTEND Family Medicine
PROC: 0D9670Z Drainage of Stomach with Drainage Device, Via Natural or Artificial Opening (ICD-10-PCS; principal; 2017-05-10)
DX: K56.60 Unspecified intestinal obstruction (principal); R47.01 Aphasia; G80.9 Cerebral palsy, unspecified; R15.9 Full incontinence of feces; R32 Unspecified urinary incontinence; M62.50 Muscle wasting and atrophy, not elsewhere classified, unspecified site; F79 Unspecified intellectual disabilities; Z82.0 Family history of epilepsy and other diseases of the nervous system; Z80.3 Family history of malignant neoplasm of breast; Z71.3 Dietary counseling and surveillance; Z90.49 Acquired absence of other specified parts of digestive tract; Z87.19 Personal history of other diseases of the digestive system; Z87.74 Personal history of (corrected) congenital malformations of heart and circulatory system; Z98.2 Presence of cerebrospinal fluid drainage device; Z86.69 Personal history of other diseases of the nervous system and sense organs
CPT/HCPCS: 36415; 74000; 74020; 80053; 81001; 82150; 83690; 85025; 96360; 99285

== ENCOUNTER 2017-10-06 08:09 | Inpatient (IN) | payer MEDICARE, OTHER ==
--- NOTE | 2017-10-06 08:31 | ED ---
General Adult HPI - General Chief complaint: Abdominal Pain Stated complaint: blockage Time Seen by Provider: 10/06/17 08:16 Source: patient, family Mode of arrival: ambulatory Limitations: language barrier, altered mental status, physical limitation - History of Present Illness Initial comments: This is a 27-year-old male who presents with a chief complaint of bowel obstruction. The patient is non-verbal and history was taken from the patient's mother. He has been eating a significantly less amount for the last 3 days. His last bowel movement was yesterday morning and it was loose. He has a significant history of bowel obstructions. His mother is concerned because this is how he typically presented in the past with a bowel obstruction. Denies fever , chills, recent illness. - Related Data Home Medications Medication Instructions Recorded Confirmed Psyllium Husk (with Sugar) 6 gm PO DAILY 05/10/17 10/06/17 [Metamucil Powder] Allergies Allergy/AdvReac Type Severity Reaction Status Date / Time No Known Allergies Allergy Verified 10/06/17 09:06 Review of Systems ROS Statement: Those systems with pertinent positive or pertinent negative responses have been documented in the HPI. ROS Other: All systems not noted in ROS Statement are negative. 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 SEIZURE DISORDER-last seizure yrs ago -nOT CURENTLY ON MEDS. HX OF ESOPHAGEAL CONSTRICTION, PAST ASPIRATION(PT IS UNABLE TO THROW UP)-not on any special diet. 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 Father Family Medical History: Seizure Disorder Additional Family Medical History / Comment(s): Father is 58 yrs old. General Exam Limitations: language barrier, altered mental status, physical limitation General appearance: alert, in no apparent distress Head exam: Present: atraumatic, normocephalic, normal inspection GI/Abdominal exam: Present: distended, hyperactive bowel sounds (hyperactive, high pitched bowel sounds auscultated in left upper quadrant.). Absent: soft, tenderness, guarding, pulsatile mass Neurological exam: Present: alert, oriented X3, normal gait Psychiatric exam: Present: normal affect, normal mood Skin exam: Present: warm, dry, intact, normal color. Absent: rash Course Vital Signs 10/06/17 08:13 Temperature 97 F L Pulse Rate 84 Respiratory 16 Rate Blood Pressure 152/92 O2 Sat by Pulse 94 L Oximetry Medical Decision Making - Lab Data Result diagrams: 10/06/17 09:20 10/06/17 09:20 Lab Results 10/06/17 10/06/17 10/06/17 Range/Units 09:20 09:20 09:20 WBC 7.4 (3.8-10.6) k/uL RBC 5.48 (4.30-5.90) m/uL Hgb 15.0 (13.0-17.5) gm/dL Hct 45.5 (39.0-53.0) % MCV 82.9 (80.0-100.0) fL MCH 27.3 (25.0-35.0) pg MCHC 32.9 (31.0-37.0) g/dL RDW 12.2 (11.5-15.5) % Plt Count 243 (150-450) k/uL Sodium 140 (137-145) mmol/L Potassium 4.5 (3.5-5.1) mmol/L Chloride 96 L (98-107) mmol/L Carbon Dioxide 27 (22-30) mmol/L Anion Gap 17 mmol/L BUN 22 H (9-20) mg/dL Creatinine 0.70 (0.66-1.25) mg/dL Est GFR (MDRD) Af Amer >60 (>60 ml/min/1.73 sqM) Est GFR (MDRD) Non-Af >60 (>60 ml/min/1.73 sqM) Glucose 91 (74-99) mg/dL Plasma Lactic Acid Taj 1.7 (0.7-2.0) mmol/L Calcium 9.7 (8.4-10.2) mg/dL Total Bilirubin 0.7 (0.2-1.3) mg/dL AST 27 (17-59) U/L ALT 11 L (21-72) U/L Alkaline Phosphatase 53 (38-126) U/L Total Protein 7.4 (6.3-8.2) g/dL Albumin 4.5 (3.5-5.0) g/dL Disposition Clinical Impression: Small bowel obstruction Disposition: ADMITTED IP TO THIS [facility] Condition: Stable Referrals: Jon Mayes DO [Primary Care Provider] - 1-2 days
[2017-10-06] MEDS ORDERED: SODIUM CHLORIDE 0.9% 2,000 ML IV ONE (08:41)
--- NOTE | 2017-10-06 08:43 | XR ---
EXAMINATION TYPE: XR KUB DATE OF EXAM: 10/06/2017 8:34 AM CLINICAL HISTORY: Nausea and vomiting with pain TECHNIQUE: Single supine KUB image of the abdomen is obtained. COMPARISON: CT abdomen and pelvis December 09, 2016. 2 view abdominal x-ray May 12, 2017 FINDINGS: Gas is seen in nondistended stomach. Gas is seen in prominent small bowel large bowel loops throughout the abdomen and pelvis. No suspicious calcifications are seen. There is partial visualiza tion of chronic hip deformities. IMPRESSION: Overall nonspecific bowel gas pattern. No significant change from prior studies.
[2017-10-06] MEDS ORDERED: RX INFO: IV CONTRAST WAS GIVEN 1 EACH MISC MISCELLANE PRN (08:51)
[2017-10-06 09:52] LABS: ALT 11 U/L (21-72); AST 27 U/L (17-59); Albumin 4.5 g/dL (3.5-5.0); Alkaline Phosphatase 53 U/L (38-126); Anion Gap 17 mmol/L; Blood Urea Nitrogen 22 mg/dL (9-20); Calcium 9.7 mg/dL (8.4-10.2); Carbon Dioxide 27 mmol/L (22-30); Chloride 96 mmol/L (98-107); Glucose 91 mg/dL (74-99); Sodium 140 mmol/L (137-145); Total Bilirubin 0.7 mg/dL (0.2-1.3); Total Protein 7.4 g/dL (6.3-8.2)
[2017-10-06 09:54] LABS: Potassium 4.5 mmol/L (3.5-5.1)
[2017-10-06 10:06] LABS: Basophils % (A) 1 %; Eosinophils # (A) 0.2 k/uL (0-0.7); Eosinophils % (A) 2 %; HCT 45.5 % (39.0-53.0); Lymphocytes # (A) 1.1 k/uL (1.0-4.8); Lymphocytes % (A) 15 %; MCH 27.3 pg (25.0-35.0); MCHC 32.9 g/dL (31.0-37.0); MCV 82.9 fL (80.0-100.0); Mean Platelet Volume 8.4; Monocytes # (A) 1.2 k/uL (0-1.0); Monocytes % (A) 17 %; Neutrophils # (A) 4.7 k/uL (1.3-7.7); Neutrophils % (A) 63 %; Platelet Count 243 k/uL (150-450); RBC 5.48 m/uL (4.30-5.90); RDW 12.2 % (11.5-15.5); WBC 7.4 k/uL (3.8-10.6)
--- NOTE | 2017-10-06 10:13 | CT ---
EXAMINATION TYPE: CT abdomen pelvis w con DATE OF EXAM: 10/06/2017 COMPARISON: EXAMINATION TYPE: CT abdomen pelvis w con DATE OF EXAM: 10/06/2017 COMPARISON: 12/09/2016 INDICATION: Abdominal pain possible obstruction DLP: 1257 mGycm, Automated exposure control for dose reduction was used. CONTRAST: 100 mL of Omnipaque 300. Study performed without Oral Contrast TECHNIQUE: Axial images were obtained from above the diaphragm to the pubic rami in the axial plane a t 5 mm thick sections. Reconstructed images are reviewed on the computer in the coronal plane. FINDINGS: Limited CT sections are obtained the lung bases. The lung bases are clear. CT ABDOMEN: Liver: There is a 1.1 cm hypodensity within the posterior lateral right lobe liver. This measures 51 Hounsfield units and is not a simple cyst. This is adjacent to a second hypodense area also not simpl e cyst and measuring 1.6 cm. Views were present previously and appears stable in size Spleen: There is a 1.8 cm cyst measuring 21 Hounsfield units in the spleen. This was present previous ly and appears stable. Pancreas: Normal Adrenal glands: The adrenal glands are normal. Gallbladder: Surgically absent Kidneys: There is malrotation of the left kidney. Right kidney appears normal. No masses are evident. . No hydronephrosis is present. No cysts are present. Delayed images were obtained through the [employer] neys, which remain unremarkable. Aorta: Normal Inferior vena cava: Normal. CT PELVIS: Multiple dilated small bowel loops containing fluid are present. Largest caliber appears to be 3 cm. This extends into this lower pelvis fluid filled rectum is present. Small bowel air-fluid levels are evident. Distal colon appears partially visualized. The ascending transverse and proximal descending colon however is difficult to separate from the small bowel loops. Small bowel obstruction is suspect ed. Appendix: Not visualized Urinary bladder: Normal. Genitourinary structures: Prostate appears unremarkable. Osseous structures: No suspicious lytic or sclerotic lesions. IMPRESSIONS: 1. Distal small bowel obstruction. 2. Correlation with the surgical history is recommended. Colon is limitedly visualized in the distal most portion and contains fluid. Remainder of the expected colon is not clearly evident, by history t he patient has had multiple bowel resections. 3. Report was called to the emergency room [facility] by Dr. Wiggins by telephone at the time of interpretation.
[2017-10-06] MEDS ORDERED: LORazepam 2 MG/ML INJ IV PRN (10:50)
[2017-10-06] MEDS ORDERED: ONDANSETRON 4 MG/2 ML VIAL IVP PRN (10:50)
[2017-10-06] MEDS ORDERED: NALOXONE 0.4 MG/ML 1 ML VIAL IV PRN (10:50)
[2017-10-06] MEDS ORDERED: MORPHINE SULFATE 4 MG/ML SYRINGE IV PRN (10:50)
[2017-10-06] MEDS ORDERED: SODIUM CHLORIDE 0.9% 1,000 ML IV SCH (11:00)
[2017-10-06] MEDS ORDERED: INFLUENZA VACCINE (6 MOS+) 60 MCG/0.5 ML SYRINGE IM ONE (11:51)
[2017-10-06] MEDS: SODIUM CHLORIDE 0.9% 1,000 ML IV SCH (17:44)
--- NOTE | 2017-10-06 20:40 | P.GSCN ---
History of Present Illness Consult date: 10/06/17 Reason for Consult: Abdominal pain, ileus History of present illness: Patient well-known to our service. Presents today with his mother. He has been eating less than normal for the last several days. Last bowel movement yesterday and it was loose in nature. He has recurrent ileus admissions most recently in April. No fevers or sick contacts at the family is aware of. No rectal bleeding or melena. Patient has had numerous abdominal surgeries as an . We suspect the patient has a ileocolonic anastomosis. CAT scan was reviewed and shows distention of the bowel all the way down to the anus consistent with diffuse ileus. Nasogastric tube was already placed. White blood cell count is normal. Review of Systems ROS unobtainable: due to mental status Past Medical History Past Medical History: Seizure Disorder Additional Past Medical History / Comment(s): SEVERLY PREMATURE AT RESULTING IN CEREBRAL PALSY AND MENTAL RETARDATION, PT DOES WEAR BRIEFS/ occasionally incontinent of urine and stool-family toilets pt about q 2 hours, aphasic, will nod head yes and no and knows small amount of sign language, NECROTIZING ENTEROCOLITIS WHEN YOUNGER, HAS HAD HX OF CONSTIPATION, BOWEL OBSTRUCTIONS(ILEUS), SEIZURE DISORDER-last seizure yrs ago -nOT CURENTLY ON MEDS , PAST ASPIRATION- ESOPHAGUS TOO LARGE-HAD PROCEDURE TO MAKE SMALLER, SO PT IS NOT ABLE TO VOMIT. History of Any Multi-Drug Resistant Organisms: None Reported Past Surgical History: Bowel Resection Additional Past Surgical History / Comment(s): 12/10/15 colonoscopy, oral surgery , esphogeal surgery for large esophagus-PT IS UNABLE TO THROW UP, partial lower intestine removed, shunt in brain, repaired a hole in his heart as -went in through his back, Past Anesthesia/Blood Transfusion Reactions: No Reported Reaction Smoking Status: Never smoker - Past Family History Mother Family Medical History: Cancer Additional Family Medical History / Comment(s): BREAST CANCER-mother is 61 yrs old. Father Family Medical History: Seizure Disorder Additional Family Medical History / Comment(s): Father is 58 yrs old. Medications and Allergies Home Medications Medication Instructions Recorded Confirmed Type Psyllium Husk (with Sugar) 6 gm PO DAILY 05/10/17 10/06/17 History [Metamucil Powder] Allergies Allergy/AdvReac Type Severity Reaction Status Date / Time No Known Allergies Allergy Verified 10/06/17 09:06 Surgical - Exam Vital Signs Temp Pulse Resp BP Pulse Ox 97 F L 84 16 152/92 94 L 10/06/17 08:13 10/06/17 08:13 10/06/17 08:13 10/06/17 08:13 10/06/17 08:13 Physical exam: General: Well-developed, somewhat malnourished HEENT: Normocephalic, sclerae nonicteric Abdomen: Mild distention, mild tenderness Extremities: No edema Neuro: Alert, nonverbal Results - Labs 10/06/17 09:20 10/06/17 09:20 Abnormal Lab Results - Last 24 Hours (Table) 10/06/17 10/06/17 Range/Units 09:20 09:20 Monocytes # 1.2 H (0-1.0) k/uL Chloride 96 L (98-107) mmol/L BUN 22 H (9-20) mg/dL ALT 11 L (21-72) U/L Diabetes panel 10/06/17 Range/Units 09:20 Sodium 140 (137-145) mmol/L Potassium 4.5 (3.5-5.1) mmol/L Chloride 96 L (98-107) mmol/L Carbon Dioxide 27 (22-30) mmol/L BUN 22 H (9-20) mg/dL Creatinine 0.70 (0.66-1.25) mg/dL Glucose 91 (74-99) mg/dL Calcium 9.7 (8.4-10.2) mg/dL AST 27 (17-59) U/L ALT 11 L (21-72) U/L Alkaline Phosphatase 53 (38-126) U/L Total Protein 7.4 (6.3-8.2) g/dL Albumin 4.5 (3.5-5.0) g/dL Calcium panel 10/06/17 Range/Units 09:20 Calcium 9.7 (8.4-10.2) mg/dL Albumin 4.5 (3.5-5.0) g/dL Pituitary panel 10/06/17 Range/Units 09:20 Sodium 140 (137-145) mmol/L Potassium 4.5 (3.5-5.1) mmol/L Chloride 96 L (98-107) mmol/L Carbon Dioxide 27 (22-30) mmol/L BUN 22 H (9-20) mg/dL Creatinine 0.70 (0.66-1.25) mg/dL Glucose 91 (74-99) mg/dL Calcium 9.7 (8.4-10.2) mg/dL Adrenal panel 10/06/17 Range/Units 09:20 Sodium 140 (137-145) mmol/L Potassium 4.5 (3.5-5.1) mmol/L Chloride 96 L (98-107) mmol/L Carbon Dioxide 27 (22-30) mmol/L BUN 22 H (9-20) mg/dL Creatinine 0.70 (0.66-1.25) mg/dL Glucose 91 (74-99) mg/dL Calcium 9.7 (8.4-10.2) mg/dL Total Bilirubin 0.7 (0.2-1.3) mg/dL AST 27 (17-59) U/L ALT 11 L (21-72) U/L Alkaline Phosphatase 53 (38-126) U/L Total Protein 7.4 (6.3-8.2) g/dL Albumin 4.5 (3.5-5.0) g/dL Assessment and Plan (1) Abdominal pain Narrative/Plan: Patient already had a large loose stools since admission to the floor. Will order Dulcolax suppository for tomorrow morning. Rectal stimulation seems to help this patient. Keep NG tube for now. Will follow. Current Visit: No Status: Acute Code(s): R10.9 - UNSPECIFIED ABDOMINAL PAIN SNOMED Code(s): 78301348
[2017-10-07] MEDS: SODIUM CHLORIDE 0.9% 1,000 ML IV SCH ×3 (04:00→23:30)
[2017-10-07] MEDS: PANTOPRAZOLE 40 MG/10 ML VIAL IVP SCH (08:06)
[2017-10-07] MEDS: BISACODYL 10 MG SUPP RECTAL SCH (08:13)
--- NOTE | 2017-10-07 10:13 | P.PN ---
<Inez Feng - Last Filed: 10/07/17 10:05> Subjective Progress Note Date: 10/07/17 27-year-old male seen and examined. Nasal gastric tube in place. Nursing reports that there has been 100 out for the last 8 hours. Small bowel movement this morning after a Dulcolax suppository given. Nursing reports patient did have a large liquid stool last evening. computed tomography scan of the abdomen pelvis this admission it did show distention of the bowel consistent with diffuse ileus. Patient has had reoccurring admissions for treatment of an ileus most recently in April 2017 patient is cognitively impaired with cerebral palsy Objective - Vital Signs Vital signs: Vital Signs Temp 97.0 F L 10/07/17 08:00 Pulse 89 10/07/17 08:00 Resp 17 10/07/17 08:00 BP 129/77 10/07/17 08:00 Pulse Ox 100 10/07/17 08:00 Intake & Output 10/06/17 10/07/17 10/07/17 18:59 06:59 18:59 Intake Total 1000 Output Total 50 100 Balance -50 900 Weight 54.431 kg Intake: Intake, IV Titration 1000 Amount Sodium Chloride 0.9% 1, 1000 000 ml @ 100 mls/hr IV . Q10H [facility] Rx#:[id number] Output: Gastric Drainage 50 100 Other: Voiding Method Diaper Toilet Toilet Diaper Diaper Incontinent Incontinent # Voids 2 1 1 # Bowel Movements 1 - Exam Focused exam Abdomen nasogastric tube in place soft with mild tenderness nondistended no nausea no vomiting incontinent urine with a depends hypoactive bowel tones noted no stool no facial grimacing with palpitation to the abdominal wall - Labs CBC & Chem 7: 10/06/17 09:20 10/06/17 09:20 Labs: Abnormal Lab Results - Last 24 Hours (Table) 10/06/17 Range/Units 09:20 Monocytes # 1.2 H (0-1.0) k/uL Assessment and Plan Assessment: Impression Present on admission decrease appetite with loose stooling suspect due to an ileus Altered mental status, physical limitation history of cerebral palsy nonverbal CAT scan abdomen pelvis distention of the bowel consistent with diffuse ileus Reoccurring ileus admissions most recently in April 2017 Numerous abdominal surgeries as an 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 Inez Feng nurse practitioner acting as scribe for signing physician. <Trae León - Last Filed: 10/07/17 14:13> Objective - Vital Signs Vital signs: Vital Signs Temp 97.0 F L 10/07/17 08:00 Pulse 89 10/07/17 08:00 Resp 17 10/07/17 08:00 BP 129/77 10/07/17 08:00 Pulse Ox 100 10/07/17 08:00 Intake & Output 10/06/17 10/07/17 10/07/17 18:59 06:59 18:59 Intake Total 1000 Output Total 50 100 50 Balance -50 900 -50 Weight 54.431 kg Intake: Intake, IV Titration 1000 Amount Sodium Chloride 0.9% 1, 1000 000 ml @ 100 mls/hr IV . Q10H [facility] Rx#:[id number] Output: Gastric Drainage 50 100 50 Other: Voiding Method Diaper Toilet Toilet Diaper Diaper Incontinent Incontinent # Voids 2 1 1 # Bowel Movements 1 - Labs CBC & Chem 7: 10/06/17 09:20 10/06/17 09:20 Assessment and Plan Assessment: Patient had a large bowel movement yesterday evening and again this morning. Appears more comfortable. We'll remove nasogastric tube. Start clear liquids. (1) Abdominal pain Current Visit: No Status: Acute Code(s): R10.9 - UNSPECIFIED ABDOMINAL PAIN SNOMED Code(s): 77214403
--- NOTE | 2017-10-07 10:30 | P.HPIM ---
History of Present Illness H&P Date: 10/07/17 Chief Complaint: Abdominal pain 27-year-old male who presented to the emergency room by his mother due to a suspected bowel obstruction. The patient has had multiple bowel obstructions in the past and patient's mother states he was acting similar as he did in previous episodes. Patient did have a bowel movement the day before admission to the hospital. Patient has had decreased oral intake over the last 3-4 days. no reports of vomiting. No reports of fever or chills. 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 Patient has a history of multiple bowel obstructions and has required multiple abdominal surgeries when he was younger. KUB: overall nonspecific bowel gas pattern. No significant change from prior studies. CT Abdomen/pelvis: distal small bowel obstruction Laboratory data: WBC 7.4. Hemoglobin 15. Platelet count 243. Sodium 140. Potassium 4.5. BUN 22. Creatinine 0.70. LFTs and pancreatic enzymes within normal limits lactic acid: 1.7 The patient was admitted to the hospital under the care of Dr. Mayes. Consultations were placed to surgery. 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 Father Family Medical History: Seizure Disorder Additional Family Medical History / Comment(s): Father is 58 yrs old. Medications and Allergies Home Medications Medication Instructions Recorded Confirmed Type Psyllium Husk (with Sugar) 6 gm PO DAILY 05/10/17 10/06/17 History [Metamucil Powder] Allergies Allergy/AdvReac Type Severity Reaction Status Date / Time No Known Allergies Allergy Verified 10/06/17 09:06 Physical Exam Vitals: Vital Signs Temp Pulse Pulse Resp BP BP Pulse Ox 10/07/17 08:00 97.0 F L 89 17 129/77 100 10/07/17 01:32 97.7 F 85 12 143/80 100 10/06/17 21:00 97.3 F L 74 16 129/71 100 10/06/17 15:31 98.0 F 84 16 121/72 98 10/06/17 15:00 97.4 F L 67 18 143/73 98 10/06/17 13:31 98.9 F 95 18 139/87 97 Intake and Output 10/06/17 10/07/17 10/07/17 22:59 06:59 14:59 Intake Total 1000 Output Total 50 100 Balance -50 900 Intake: Intake, IV Titration 1000 Amount Sodium Chloride 0.9% 1, 1000 000 ml @ 100 mls/hr IV . Q10H [facility] Rx#:[id number] Output: Gastric Drainage 50 100 Other: Voiding Method Toilet Toilet Diaper Diaper Incontinent Incontinent # Voids 1 1 # Bowel Movements 1 GENERAL: This is a 27-year-old male in no apparent distress at the time of examination. patient is nonverbal. HEENT: Head is atraumatic, normocephalic. Pupils are equal, round, and reactive to light. Sclerae anicteric. Conjunctivae are clear. Mucus membranes of the mouth are moist. Neck is supple. RESPIRATORY: Clear to ausculation. No wheezes, rales, or rhonchi. No use of accessory muscles. Patient maintaining oxygen saturation greater than 92%. CARDIOVASCULAR: Regular rate and rhythm. S1 and S2 noted. No systolic or diastolic murmur auscultated. No JVD noted. No S3 or S4 noted. GASTROINTESTINAL: NG tube noted with brown drainage. 100 mL present in drainage container. extensive scarring noted to abdomen.Bowel sounds auscultated 4 quadrants. No distention noted. Abdomen is soft and round. No facial grimacing noted upon palpation of abdomen. INTEGUMENTARY: No cyanosis. No jaundice. No rashes noted. No cellulitis noted. EXTREMITIES: 2+ peripheral pulses. No evidence of peripheral edema. No calf tenderness noted. NEUROLOGIC: Unable to assess secondary to severe cognitive impairment PSYCHIATRIC: Unable to assess secondary to severe cognitive impairment Results CBC & Chem 7: 10/06/17 09:20 10/06/17 09:20 Labs: Abnormal Lab Results - Last 24 Hours (Table) 10/06/17 Range/Units 09:20 Monocytes # 1.2 H (0-1.0) k/uL Thrombosis Risk Factor Assmnt - Choose All That Apply Any of the Below Risk Factors Present?: No Other Risk Factors: No Other congenital or acquired thrombophilia - If yes, enter type in comment: No Thrombosis Risk Factor Assessment Level: Very Low Risk Assessment and Plan Plan: ASSESSMENT: Distal small bowel obstruction, present on admission, with decreased oral intake x 3-4 days Hospitalization in April 2017 for bowel obstruction History of multiple bowel obstructions with previous bowel resection Cerebral palsy and severe cognitive impairment as a result of premature PLAN: Dr. León on consult. Appreciate recommendations and input Continue NPO Continue NG to LIS. Monitor output Daily dulcolax suppositories per surgery Continue IV fluids at 100 mL an hour Home meds as appropriate Monitor labs GI prophylaxis: Protonix 40 mg IV Daily DVT prophylaxis: Venodyne's to bilateral lower extremities Monitor vital signs and address as appropriate Discharge planning: Patient to return home when stable Further recommendations pending patient's course Nurse practitioner note has been reviewed by physician. Signing provider agrees with the documented findings, assessment, and plan of care.
[2017-10-07 15:18] VITALS: BMI 18.2
[2017-10-08] MEDS: BISACODYL 10 MG SUPP RECTAL SCH (08:33)
[2017-10-08] MEDS: PANTOPRAZOLE 40 MG/10 ML VIAL IVP SCH (08:33)
[2017-10-08] MEDS: SODIUM CHLORIDE 0.9% 1,000 ML IV SCH ×2 (09:30→19:30)
--- NOTE | 2017-10-08 09:48 | P.PN ---
Progress Note - Text Progress Note Date: 10/08/17 The patient resting comfortably in his bed. Apparently has had a bowel movement. On exam is lesser stable his abdomen is soft. Patient will have his diet increased to full liquid diet.
--- NOTE | 2017-10-08 16:41 | PN ---
PROGRESS NOTE DATE OF SERVICE: 10/08/2017 I am covering for Dr. Mayes. This is a 27-year-old gentleman who was admitted with partial small bowel obstruction, is being closely monitored at this time. The patient had a previous history of multiple bowel obstructions. The patient has cerebral palsy also. No chest pain, no palpitation. On exam, patient's pulse is 63, blood pressure 103/58, respirations 16, temperature 98.8. pulse ox 100% on room air. HEENT: Conjunctivae normal. NECK: No jugular venous distension. CARDIOVASCULAR: S1, S2, muffled. RESPIRATORY: Breath sounds diminished at the bases, no rhonchi, no crackles. Abdomen is soft, nontender. NERVOUS SYSTEM: No focal deficits. LABS: CBC, BMP within normal limits. ASSESSMENT: 1. Partial small bowel obstruction on conservative line of treatment. 2. History of multiple bowel obstruction in the past. 3. Cerebral palsy. 4. Abdominal pain and constipation. RECOMMENDATION: Recommend to continue current management and symptomatic treatment. Otherwise, at this time I would recommend continue the conservative line of management. Dr. Whyte is covering for Dr. León. Otherwise, a CAT scan showed distal small bowel obstruction and clinical correlation was suggested. Will continue to monitor. Discussed with staff. Further recommendations to follow. MMODL / IJN: [id number] /
[2017-10-09] MEDS: SODIUM CHLORIDE 0.9% 1,000 ML IV SCH ×2 (05:28→18:59)
--- NOTE | 2017-10-09 08:34 | P.PN ---
Progress Note - Text Progress Note Date: 10/09/17 The patient resting comfortably in his bed. He has tolerated full liquid diet. On exam is lesser stable. His abdomen soft. It. Patient had a bowel movement yesterday. He will be placed on regular diet.
[2017-10-09] MEDS: BISACODYL 10 MG SUPP RECTAL SCH (08:52)
[2017-10-09] MEDS: PANTOPRAZOLE 40 MG/10 ML VIAL IVP SCH (08:52)
--- NOTE | 2017-10-09 16:48 | PN ---
PROGRESS NOTE DATE OF SERVICE: 10/09/2017 I am covering for Dr. Mayes. This 27-year-old gentleman was admitted with partial small bowel obstruction is being closely monitored. No chest pain. No palpitations. No fever. The patient is mentally challenged. EXAM: On exam, alert and oriented x2. Pulse is 79. Blood pressure 117/76, respirations 16, temperature 97.7, pulse ox 98% room air. HEENT: Conjunctivae normal. NECK: No jugular venous distention. CARDIOVASCULAR: S1, S2. RESPIRATORY: Breath sounds diminished in the bases. No rhonchi. ABDOMEN: Soft, nontender. NERVOUS SYSTEM: No focal deficits. LABS: Noted. ASSESSMENT: 1. Partial small bowel obstruction on conservative line of treatment. 2. History of multiple bowel obstruction in the past. 3. History of cerebral palsy. 4. History of abdominal pain and constipation history. RECOMMENDATIONS AND DISCUSSION: I recommend to continue current management and symptomatic treatment. Otherwise continue to follow closely with surgery, Dr. Whyte. Dr. Mayes will follow. MMODL / IJN: [id number] /
[2017-10-10 01:35] VITALS: TEMP 97.5
[2017-10-10 07:04] VITALS: BP 97/60; PULSE 58; RESP 16
[2017-10-10] MEDS: BISACODYL 10 MG SUPP RECTAL SCH (09:25)
[2017-10-10] MEDS: PANTOPRAZOLE 40 MG/10 ML VIAL IVP SCH ×2 (09:31)
--- NOTE | 2017-10-10 10:16 | P.PN ---
<Inez Feng - Last Filed: 10/10/17 10:10> Subjective Progress Note Date: 10/10/17 27-year-old male seen and examined at bedside pleasant cooperative sitting up in bed nursing reports patient did have a bowel movement yesterday afternoon tolerating regular diet no nausea vomiting Patients being followed by surgical service at the request of the attending for ileus noted on a CAT scan of the abdomen pelvis this admission. Ileus has resolved Patient has history of reoccurring admissions for ileus most recent in April 2017 Objective - Vital Signs Vital signs: Vital Signs Temp 97.5 F L 10/10/17 00:32 Pulse 58 L 10/10/17 07:00 Resp 16 10/10/17 07:00 BP 97/60 10/10/17 07:00 Pulse Ox 95 10/10/17 07:00 Intake & Output 10/09/17 10/10/17 10/10/17 18:59 06:59 18:59 Intake Total 1200 Balance 1200 Weight 54.431 kg Intake: IV 600 Sodium Chloride 0.9% 1, 600 000 ml @ 100 mls/hr IV . Q10H [facility] Rx#:[id number] Oral 600 Other: Voiding Method Toilet Incontinent Diaper Incontinent # Voids 1 # Bowel Movements 1 - Exam Focused exam Abdomen no facial grimacing with palpitation to the abdominal wall diapered incontinent urine no nausea no vomiting sitting up taking regular diet tolerating soft nondistended nontender active bowel tones present - Labs CBC & Chem 7: 10/06/17 09:20 10/06/17 09:20 Assessment and Plan Assessment: Impression Present on admission decrease appetite with loose stooling suspect due to an ileus Altered mental status, physical limitation history of cerebral palsy nonverbal cognitive impairment CAT scan abdomen pelvis distention of the bowel consistent with diffuse ileus Reoccurring ileus admissions most recently in April 2017 Numerous abdominal surgeries as an 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 Inez Feng nurse practitioner acting as scribe for signing physician. <Trae León - Last Filed: 10/10/17 13:13> Objective - Vital Signs Vital signs: Vital Signs Temp 97.5 F L 10/10/17 00:32 Pulse 58 L 10/10/17 07:00 Resp 16 10/10/17 07:00 BP 97/60 10/10/17 07:00 Pulse Ox 95 10/10/17 07:00 Intake & Output 10/09/17 10/10/17 10/10/17 18:59 06:59 18:59 Intake Total 1200 Balance 1200 Weight 54.431 kg Intake: IV 600 Sodium Chloride 0.9% 1, 600 000 ml @ 100 mls/hr IV . Q10H [facility] Rx#:[id number] Oral 600 Other: Voiding Method Toilet Incontinent Diaper Incontinent # Voids 1 # Bowel Movements 1 - Labs CBC & Chem 7: 10/06/17 09:20 10/06/17 09:20 Assessment and Plan Assessment: As above. Patient was discharged prior to my arrival. (1) Abdominal pain Current Visit: No Status: Acute Code(s): R10.9 - UNSPECIFIED ABDOMINAL PAIN SNOMED Code(s): 99763068
--- NOTE | 2017-10-10 11:02 | P.DS ---
Providers Date of admission: 10/06/17 11:00 Expected date of discharge: 10/10/17 Attending physician: Jon Mayes Consults: 10/06/17 10:50 Consult Physician Stat Consulting Provider: Trae León Reason/Comments: Small bowel obstruction Do you want consulting provider notified?: Already Contacted Primary care physician: Jon Mayes [facility] Hospital Course: 27-year-old male who presented to the emergency room by his mother due to a suspected bowel obstruction. The patient has had multiple bowel obstructions in the past and patient's mother states he was acting similar as he did in previous episodes. Patient did have a bowel movement the day before admission to the hospital. Patient has had decreased oral intake over the last 3-4 days. no reports of vomiting. No reports of fever or chills. 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 Patient has a history of multiple bowel obstructions and has required multiple abdominal surgeries when he was younger. KUB: overall nonspecific bowel gas pattern. No significant change from prior studies. CT Abdomen/pelvis: distal small bowel obstruction Laboratory data: WBC 7.4. Hemoglobin 15. Platelet count 243. Sodium 140. Potassium 4.5. BUN 22. Creatinine 0.70. LFTs and pancreatic enzymes within normal limits lactic acid: 1.7 The patient was admitted to the hospital under the care of Dr. Mayes. Consultations were placed to surgery. The patient was evaluated by surgery. He was placed on daily dulcolax suppositories. He has had multiple bowel movements since admission. He had an NG tube which has since been discontinued for surgery. He is tolerating PO intake. The patient is back to his baseline. The patient was deemed stable for discharge per Dr. Mayes. History follow-up on an outpatient basis. Spoke with Inez Feng NP, with surgical services who recommends to continue suppositories on an outpatient basis and recommends to start with one suppository every other day. DISCHARGE DIAGNOSIS: Distal small bowel obstruction, present on admission, with decreased oral intake x 3-4 days, resolved Hospitalization in April 2017 for bowel obstruction History of multiple bowel obstructions with previous bowel resection Cerebral palsy and severe cognitive impairment as a result of premature Nurse practitioner note has been reviewed by physician. Signing provider agrees with the documented findings, assessment, and plan of care. Patient Condition at Discharge: Stable Plan - Discharge Summary Discharge Rx Participant: Yes New Discharge Prescriptions: New Bisacodyl [Dulcolax] 10 mg RECTAL DIRECTED #30 supp Continue Psyllium Husk (with Sugar) [Metamucil Powder] 6 gm PO DAILY Discharge Medication List Psyllium Husk (with Sugar) [Metamucil Powder] 6 gm PO DAILY 05/10/17 [History] Bisacodyl [Dulcolax] 10 mg RECTAL DIRECTED #30 supp 10/10/17 [Rx] Follow up Appointment(s)/Referral(s): Trae León MD [Medical Doctor] - 1 Week Jon Mayes DO [Primary Care Provider] - 1-2 days Discharge Disposition: HOME SELF-CARE
--- NOTE | 2017-10-14 15:31 | CDI ---
Last Revision, July 2017 Documentation Clarification Form Date: 10/14/2017 3:21:00 PM From: Bety Norton Admit Date: 10/06/2017 11:00:00 AM Patient Name: Gerber Kauffman Visit Number: [id number] Discharge Date: ATTENTION: The Clinical Documentation Specialists (CDI) and [facility] Coding Staff appreciate your assistance in clarifying documentation. Please respond to the clarification below the line at the bottom and electronically sign. The CDI & [facility] Coding staff will review the response and follow-up if needed. Please note: Queries are made part of the Legal Health Record. If you have any questions, please contact the author of this message via ITS. Dr. Trae León Documentation Clarification Form Date: 10/14/17 CDS\Supervisor [employer] Name: Megan Norton Phone: Visit Number: [id number] Admit Date: 10/06/17 Discharge Date: 10/10/17 Patient Name: Gerber Kauffman Payor: Dr. León Malnutrition has been documented on the consult 10/06/17. The patient is 27 years old, 5 ft 8 in with a BMI of 18.2 with intellectual disabilities. Documented inadequate nutritional intake, underweight, one person assist on fall precautions. dx of a bowel obstruction & poor intake In your professional opinion, can you please clarify if these findings signify one of the following conditions? ? Mild Protein-Calorie Malnutrition ? Moderate Protein-Calorie Malnutrition ? Severe Protein-Calorie Malnutrition ? Malnutrition following GI surgery ? Malnutrition, unspecified ? Other condition, please specify ? Unable to determine Please continue to document in your progress notes and discharge summary in order to capture severity of illness and risk of mortality. Include clinical findings that support your diagnosis. Please continue to document in your progress notes and discharge summary in order to capture severity of illness and risk of mortality. Include clinical findings that support your diagnosis. MTDD
== END 2017-10-10 12:41 | disposition home or self-care (01) | DRG 389 ==
LOC: EC 08:09 → 3SUR 11:00
PROVIDERS: ADMIT Family Medicine; ATTEND Family Medicine
DX: K56.600 Partial intestinal obstruction, unspecified as to cause (principal); R47.01 Aphasia; R15.9 Full incontinence of feces; G80.9 Cerebral palsy, unspecified; F79 Unspecified intellectual disabilities; R32 Unspecified urinary incontinence; G40.909 Epilepsy, unspecified, not intractable, without status epilepticus; Z80.3 Family history of malignant neoplasm of breast; Z82.0 Family history of epilepsy and other diseases of the nervous system; Z90.49 Acquired absence of other specified parts of digestive tract; Z79.899 Other long term (current) drug therapy
CPT/HCPCS: 36415; 74018; 74177; 80053; 83605; 85025; 96360; 96361; 99285

== ENCOUNTER 2017-12-09 07:34 | Inpatient (IN) | payer MEDICARE, OTHER ==
[2017-12-09] MEDS ORDERED: SODIUM CHLORIDE 0.9% 1,000 ML IV STA (08:32)
[2017-12-09] MEDS ORDERED: RX INFO: IV CONTRAST WAS GIVEN 1 EACH MISC MISCELLANE PRN (08:33)
--- NOTE | 2017-12-09 08:59 | ED ---
General Adult HPI - General Chief complaint: Abdominal Pain Stated complaint: Constipated Time Seen by Provider: 12/09/17 08:17 Source: patient, family, RN notes reviewed, old records reviewed Mode of arrival: ambulatory Limitations: no limitations - History of Present Illness Initial comments: Patient 27-year-old male who is nonverbal presenting to the emergency room today with his mother with a chief complaint of abdominal pain. Mother states that he's had chronic bowel structures. States that she can tell the symptoms when his appetite goes down in his demeanor becomes more unhappy. She states she's noticed the change the last 3 or 4 days. She states last bowel obstruction was approximately 2-3 months back. She denies any nausea vomiting. States this is the usual symptoms for him. Denies any fever at home. - Related Data Home Medications Medication Instructions Recorded Confirmed Psyllium Husk (with Sugar) 6 gm PO DAILY 05/10/17 12/09/17 [Metamucil Powder] Allergies Allergy/AdvReac Type Severity Reaction Status Date / Time No Known Allergies Allergy Verified 12/09/17 07:51 Review of Systems ROS Statement: Those systems with pertinent positive or pertinent negative responses have been documented in the HPI. ROS Other: All systems not noted in ROS Statement are negative. Past Medical History Past Medical History: Seizure Disorder Additional Past Medical History / Comment(s): SEVERLY PREMATURE AT RESULTING IN CEREBRAL PALSY AND MENTAL RETARDATION, PT DOES WEAR BRIEFS/ occasionally incontinent of urine and stool-family toilets pt about q 2 hours, aphasic, will nod head yes and no and knows small amount of sign language, NECROTIZING ENTEROCOLITIS WHEN YOUNGER, HAS HAD HX OF CONSTIPATION, BOWEL OBSTRUCTIONS(ILEUS), SEIZURE DISORDER-last seizure yrs ago -nOT CURENTLY ON MEDS , PAST ASPIRATION- ESOPHAGUS TOO LARGE-HAD PROCEDURE TO MAKE SMALLER, SO PT IS NOT ABLE TO VOMIT. 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 Father Family Medical History: Seizure Disorder Additional Family Medical History / Comment(s): Father is 58 yrs old. General Exam - General Exam Comments Initial Comments: General: The patient is awake and alert, in no distressll. Eye: Pupils are equal, round and reactive to light, extra-ocular movements are intact. No nystagmus. There is normal conjunctiva bilaterally. No signs of icterus. Ears, nose, mouth and throat: There are moist mucous membranes and no oral lesions. Neck: The neck is supple, there is no tenderness or JVD. Cardiovascular: There is a regular rate and rhythm. No murmur, rub or gallop is appreciated. Respiratory: Lungs are clear to auscultation, respirations are non-labored, breath sounds are equal. No wheezes, stridor, rales, or rhonchi. Gastrointestinal: abdomen soft on palpation. No apparent specific abdominal tenderness on palpation Musculoskeletal: Normal ROM, no tenderness. Strength 5/5. Sensation intact. Pulses equal bilaterally 2+. Neurological: There are no obvious motor or sensory deficits. Coordination appears grossly intact. Skin: Skin is warm and dry and no rashes or lesions are noted. Limitations: no limitations Course Vital Signs 12/09/17 12/09/17 07:42 10:12 Temperature 97.0 F L Pulse Rate 99 96 Respiratory 18 18 Rate Blood Pressure 140/84 122/68 O2 Sat by Pulse 98 99 Oximetry Medical Decision Making - Medical Decision Making Patient's labs been reviewed. CT of the abdomen pelvis reviewed does show evidence for bowel junction. Patient has history of multiple previous bowel obstructions. NG tube will be placed. Will be admitted with consult to Dr. sands his surgeon. - Lab Data Result diagrams: 12/09/17 08:45 12/09/17 08:45 Lab Results 12/09/17 12/09/17 12/09/17 Range/Units 08:45 08:45 08:45 WBC 9.5 (3.8-10.6) k/uL RBC 5.98 H (4.30-5.90) m/uL Hgb 16.5 (13.0-17.5) gm/dL Hct 47.3 (39.0-53.0) % MCV 79.1 L (80.0-100.0) fL MCH 27.5 (25.0-35.0) pg MCHC 34.8 (31.0-37.0) g/dL RDW 12.6 (11.5-15.5) % Plt Count 333 (150-450) k/uL Neutrophils % STUDENT SERVICES REPRESENTATIVE Neutrophils % (Manual) 73 % Band Neutrophils % 7 % Lymphocytes % STUDENT SERVICES REPRESENTATIVE Lymphocytes % (Manual) 10 % Monocytes % STUDENT SERVICES REPRESENTATIVE Monocytes % (Manual) 10 % Eosinophils % STUDENT SERVICES REPRESENTATIVE Basophils % STUDENT SERVICES REPRESENTATIVE Neutrophils # STUDENT SERVICES REPRESENTATIVE Neutrophils # (Manual) 7.60 (1.3-7.7) k/uL Lymphocytes # STUDENT SERVICES REPRESENTATIVE Lymphocytes # (Manual) 0.95 L (1.0-4.8) k/uL Monocytes # STUDENT SERVICES REPRESENTATIVE Monocytes # (Manual) 0.95 (0-1.0) k/uL Eosinophils # STUDENT SERVICES REPRESENTATIVE Basophils # STUDENT SERVICES REPRESENTATIVE Nucleated RBCs 0 (0-0) /100 WBC Manual Slide Review Performed Hypochromasia (manual) Present Poikilocytosis (manual Present Sodium 140 (137-145) mmol/L Potassium 4.5 (3.5-5.1) mmol/L Chloride 96 L (98-107) mmol/L Carbon Dioxide 25 (22-30) mmol/L Anion Gap 19 mmol/L BUN 24 H (9-20) mg/dL Creatinine 0.60 L (0.66-1.25) mg/dL Est GFR (CKD-EPI)AfAm >90 (>60 ml/min/1.73 sqM) Est GFR (CKD-EPI)NonAf >90 (>60 ml/min/1.73 sqM) Glucose 125 H (74-99) mg/dL Plasma Lactic Acid Taj 1.6 (0.7-2.0) mmol/L Calcium 10.1 (8.4-10.2) mg/dL Total Bilirubin 0.6 (0.2-1.3) mg/dL AST 25 (17-59) U/L ALT 18 L (21-72) U/L Alkaline Phosphatase 66 (38-126) U/L Total Protein 8.1 (6.3-8.2) g/dL Albumin 4.7 (3.5-5.0) g/dL Amylase 54 (30-110) U/L Lipase 45 (23-300) U/L Disposition Clinical Impression: SBO (small bowel obstruction) Disposition: ADMITTED IP TO THIS HOSP Condition: Stable Referrals: Jon Mayes DO [Primary Care Provider] - 1-2 days Time of Disposition: 10:18
[2017-12-09 09:19] LABS: HCT 47.3 % (39.0-53.0); HGB 16.5 gm/dL (13.0-17.5); MCH 27.5 pg (25.0-35.0); MCHC 34.8 g/dL (31.0-37.0); MCV 79.1 fL (80.0-100.0); Mean Platelet Volume 7.4; Platelet Count 333 k/uL (150-450); RBC 5.98 m/uL (4.30-5.90); RDW 12.6 % (11.5-15.5); WBC 9.5 k/uL (3.8-10.6)
[2017-12-09 09:34] LABS: ALT 18 U/L (21-72); AST 25 U/L (17-59); Albumin 4.7 g/dL (3.5-5.0); Alkaline Phosphatase 66 U/L (38-126); Amylase 54 U/L (30-110); Anion Gap 19 mmol/L; Blood Urea Nitrogen 24 mg/dL (9-20); Calcium 10.1 mg/dL (8.4-10.2); Carbon Dioxide 25 mmol/L (22-30); Chloride 96 mmol/L (98-107); Glucose 125 mg/dL (74-99); Lipase 45 U/L (23-300); Potassium 4.5 mmol/L (3.5-5.1); Sodium 140 mmol/L (137-145); Total Bilirubin 0.6 mg/dL (0.2-1.3); Total Protein 8.1 g/dL (6.3-8.2)
[2017-12-09 10:05] LABS: Band Neutrophils % 7 %; Hypochromasia (M) Present; Lymphocytes # (M) 0.95 k/uL (1.0-4.8); Monocytes # (M) 0.95 k/uL (0-1.0); Neutrophils % (M) 73 %; Nucleated Red Blood Cells 0 /100 WBC (0-0); Poikilocytosis (M) Present; Total Cells Counted 100
--- NOTE | 2017-12-09 10:07 | CT ---
EXAMINATION TYPE: CT abdomen pelvis w con DATE OF EXAM: 12/09/2017 COMPARISON: 10/06/2017 INDICATION: Constipation, history of bowel obst DLP: 485.2 mGycm, Automated exposure control for dose reduction was used. CONTRAST: 100 mL of Isovue 300. Study performed without Oral Contrast TECHNIQUE: Axial images were obtained from above the diaphragm to the pubic rami in the axial plane a t 5 mm thick sections. Reconstructed images are reviewed on the computer in the coronal plane. FINDINGS: Limited CT sections are obtained the lung bases. The lung bases are clear. CT ABDOMEN: Liver: Normal Spleen: There is a 3.0 cm cyst measuring 5 Hounsfield units within the spleen present previously but enlarged over the interval. Pancreas: Normal Adrenal glands: The adrenal glands are normal. Gallbladder: Normal Kidneys: There is malpositioning of the left kidney. Some malrotation is present. No masses are evide nt. No hydronephrosis is present. No cysts are present. Delayed images were obtained through the k idneys, which remain unremarkable. Aorta: Normal Inferior vena cava: Normal. CT PELVIS: There are multiple dilated small bowel loops with air present. Fluid-filled small bowel lo ops are present. Distal colon is identified. Air is present within the colon. Distal colon contains f luid. Findings can be related to small bowel obstruction. A zone of transition is not identified. Appendix: Not identified Urinary bladder: Normal. Genitourinary structures: Prostate is unremarkable. Osseous structures: No suspicious lytic or sclerotic lesions. IMPRESSIONS: 1. Multiple marked dilated small bowel loops with fluid and air-fluid levels. Findings are suggestiv e for small bowel obstruction. With air present within the colon, ileus should be considered within t he differential. Close follow-up is recommended.
[2017-12-09] MEDS ORDERED: NALOXONE 0.4 MG/ML 1 ML VIAL IV PRN (10:51)
[2017-12-09] MEDS ORDERED: LORazepam 2 MG/ML INJ IV PRN (10:51)
--- NOTE | 2017-12-09 12:09 | XR ---
EXAMINATION TYPE: XR chest 1V confirm line plcar DATE OF EXAM: 12/09/2017 COMPARISON: NONE HISTORY: Chest pain TECHNIQUE: Single frontal view of the chest is obtained. FINDINGS: NG tube has coiled back on itself at the GE junction with its distal tip at the approximat e T3 level. NG tube should be repositioned. There is no focal air space opacity, pleural effusion, or pneumothorax seen. The cardiac silhouette size is within normal limits. The osseous structures are intact. IMPRESSION: 1. NG tube has coiled back on itself at the GE junction with its distal tip at the approximate T3 le brett. NG tube should be repositioned.
--- NOTE | 2017-12-09 12:53 | XR ---
EXAMINATION TYPE: XR chest 1V portable DATE OF EXAM: 12/09/2017 COMPARISON: 12/09/2017 HISTORY: Chest pain TECHNIQUE: Single frontal view of the chest is obtained. FINDINGS: Tip of the NG tube is at the GE junction and should be advanced. Patchy right infrahilar density may reflect atelectasis or infiltrate. The cardiac silhouette size is within normal limits. The osseous structures are intact. IMPRESSION: 1. NG tube should be advanced. 2. Right infrahilar infiltrate difficult to exclude.
[2017-12-09] MEDS: MORPHINE SULFATE 4MG/4ML SYRG IV PRN ×2 (13:13→18:16)
--- NOTE | 2017-12-09 14:19 | P.GSHP ---
History of Present Illness H&P Date: 12/09/17 Chief Complaint: Ileus Patient well-known to our service. The patient has a history of recurrent ileus. As an infant the patient had multiple abdominal surgeries and bowel resections. We believe he has a low ileocolonic anastomosis. He has had previous barium enema and flexible sigmoidoscopy showing no definite obstruction. The anastomosis itself was nonvisualized. Comes back to the hospital with his mother with the chief complaint abdominal pain and abdominal swelling. He has not eaten over the last 3-4 days. Nasogastric tube was placed although apparently this was coiled in his mouth. No vomiting. No fevers. White blood cell count is normal however he does have 7% bandemia. Patient is afebrile. CAT scan was reviewed. CAT scan shows distended bowel loops all the way down to the distal rectum. In the distal rectum there is a narrowing that is likely appeals representative of peristalsis however stricture or lesion is not fully excluded. I spoke with the patient's sister. They have been providing a variety of different stool softeners while at home. - Review of Systems ROS unobtainable: Reports: due to mental status Past Medical History Past Medical History: Seizure Disorder Additional Past Medical History / Comment(s): SEVERLY PREMATURE AT RESULTING IN CEREBRAL PALSY AND MENTAL RETARDATION, PT DOES WEAR BRIEFS/ occasionally incontinent of urine and stool-family toilets pt about q 2 hours, aphasic, will nod head yes and no and knows small amount of sign language, NECROTIZING ENTEROCOLITIS WHEN YOUNGER, HAS HAD HX OF CONSTIPATION, BOWEL OBSTRUCTIONS(ILEUS), SEIZURE DISORDER-last seizure yrs ago -nOT CURENTLY ON MEDS , PAST ASPIRATION- ESOPHAGUS TOO LARGE-HAD PROCEDURE TO MAKE SMALLER, SO PT IS NOT ABLE TO VOMIT. 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 Father Family Medical History: Seizure Disorder Additional Family Medical History / Comment(s): Father is 60 rs old. Medications and Allergies Home Medications Medication Instructions Recorded Confirmed Type Psyllium Husk (with Sugar) 6 gm PO DAILY 05/10/17 12/09/17 History [Metamucil Powder] Allergies Allergy/AdvReac Type Severity Reaction Status Date / Time No Known Allergies Allergy Verified 12/09/17 07:51 Surgical - Exam Vital Signs Temp Pulse Resp BP Pulse Ox 97.0 F L 99 18 140/84 98 12/09/17 07:42 12/09/17 07:42 12/09/17 07:42 12/09/17 07:42 12/09/17 07:42 Physical exam: General: Well-developed, well-nourished HEENT: Normocephalic, sclerae nonicteric Abdomen: Mild diffuse tenderness, mild distention Extremities: No edema Neuro: Alert Results - Labs 12/09/17 08:45 12/09/17 08:45 Abnormal Lab Results - Last 24 Hours (Table) 12/09/17 12/09/17 Range/Units 08:45 08:45 RBC 5.98 H (4.30-5.90) m/uL MCV 79.1 L (80.0-100.0) fL Lymphocytes # (Manual) 0.95 L (1.0-4.8) k/uL Chloride 96 L (98-107) mmol/L BUN 24 H (9-20) mg/dL Creatinine 0.60 L (0.66-1.25) mg/dL Glucose 125 H (74-99) mg/dL ALT 18 L (21-72) U/L Diabetes panel 12/09/17 Range/Units 08:45 Sodium 140 (137-145) mmol/L Potassium 4.5 (3.5-5.1) mmol/L Chloride 96 L (98-107) mmol/L Carbon Dioxide 25 (22-30) mmol/L BUN 24 H (9-20) mg/dL Creatinine 0.60 L (0.66-1.25) mg/dL Glucose 125 H (74-99) mg/dL Calcium 10.1 (8.4-10.2) mg/dL AST 25 (17-59) U/L ALT 18 L (21-72) U/L Alkaline Phosphatase 66 (38-126) U/L Total Protein 8.1 (6.3-8.2) g/dL Albumin 4.7 (3.5-5.0) g/dL Calcium panel 12/09/17 Range/Units 08:45 Calcium 10.1 (8.4-10.2) mg/dL Albumin 4.7 (3.5-5.0) g/dL Pituitary panel 12/09/17 Range/Units 08:45 Sodium 140 (137-145) mmol/L Potassium 4.5 (3.5-5.1) mmol/L Chloride 96 L (98-107) mmol/L Carbon Dioxide 25 (22-30) mmol/L BUN 24 H (9-20) mg/dL Creatinine 0.60 L (0.66-1.25) mg/dL Glucose 125 H (74-99) mg/dL Calcium 10.1 (8.4-10.2) mg/dL Adrenal panel 12/09/17 Range/Units 08:45 Sodium 140 (137-145) mmol/L Potassium 4.5 (3.5-5.1) mmol/L Chloride 96 L (98-107) mmol/L Carbon Dioxide 25 (22-30) mmol/L BUN 24 H (9-20) mg/dL Creatinine 0.60 L (0.66-1.25) mg/dL Glucose 125 H (74-99) mg/dL Calcium 10.1 (8.4-10.2) mg/dL Total Bilirubin 0.6 (0.2-1.3) mg/dL AST 25 (17-59) U/L ALT 18 L (21-72) U/L Alkaline Phosphatase 66 (38-126) U/L Total Protein 8.1 (6.3-8.2) g/dL Albumin 4.7 (3.5-5.0) g/dL Assessment and Plan (1) Ileus Narrative/Plan: Will keep nothing by mouth for now. Hold nasogastric tube placement given the difficulties that had trying to inserted. Repeat abdominal x-rays tomorrow. Spoke with the patient's sister. We'll schedule for flexible sigmoidoscopy on Tuesday. Current Visit: No Status: Acute Code(s): K56.7 - ILEUS, UNSPECIFIED SNOMED Code(s): 490201333
[2017-12-09 16:32] LABS: Appearance,Urine Clear (Clear); Bilirubin,Urine Negative (Negative); Blood,Urine Negative (Negative); Color,Urine Yellow; Glucose,Urine (UA) Negative (Negative); Ketones,Urine 4+ (Negative); Leukocyte Esterase,Urine Negative (Negative); Nitrite,Urine Negative (Negative); Protein,Urine Trace (Negative); Urobilinogen,Urine <2.0 mg/dL (<2.0)
[2017-12-09 16:45] LABS: Specific Gravity,Urine >1.050 (1.001-1.035)
[2017-12-09] MEDS ORDERED: KETOROLAC 30 MG/ML 1 ML VIAL IVP PRN (20:19)
[2017-12-09] MEDS: FAMOTIDINE 20 MG TAB PO SCH (20:24)
--- NOTE | 2017-12-10 07:18 | XR ---
EXAMINATION TYPE: XR abdomen 2V , 2 VIEWS DATE OF EXAM ORDERED: 12/10/2017 HISTORY: Follow-up ileus. COMPARISON: Previous study dated 10/06/2017. FINDINGS: There is mild dilatation of the transverse colon. There are nondilated loops of air-filled small bowel. There are multiple air-fluid levels. The lung bases are clear. No unusual calcification s are seen. IMPRESSION: FINDINGS MOST CONSISTENT WITH GENERALIZED ILEUS.
[2017-12-10 07:35] LABS: Basophils % (A) 0 %; Eosinophils # (A) 0.2 k/uL (0-0.7); Eosinophils % (A) 3 %; HCT 44.4 % (39.0-53.0); HGB 14.4 gm/dL (13.0-17.5); Lymphocytes # (A) 1.1 k/uL (1.0-4.8); Lymphocytes % (A) 16 %; MCHC 32.4 g/dL (31.0-37.0); MCV 83.2 fL (80.0-100.0); Mean Platelet Volume 7.7; Monocytes # (A) 0.8 k/uL (0-1.0); Monocytes % (A) 12 %; Neutrophils # (A) 4.6 k/uL (1.3-7.7); Neutrophils % (A) 66 %; Platelet Count 240 k/uL (150-450); RBC 5.34 m/uL (4.30-5.90); RDW 12.8 % (11.5-15.5)
[2017-12-10 07:59] LABS: ALT 51 U/L (21-72); AST 37 U/L (17-59); Albumin 4.2 g/dL (3.5-5.0); Alkaline Phosphatase 67 U/L (38-126); Anion Gap 20 mmol/L; Blood Urea Nitrogen 14 mg/dL (9-20); Calcium 9.6 mg/dL (8.4-10.2); Carbon Dioxide 22 mmol/L (22-30); Chloride 98 mmol/L (98-107); Glucose 65 mg/dL (74-99); Potassium 3.9 mmol/L (3.5-5.1); Sodium 140 mmol/L (137-145); Total Bilirubin 0.6 mg/dL (0.2-1.3)
[2017-12-10] MEDS: FAMOTIDINE 20 MG TAB PO SCH ×3 (09:35→21:34)
--- NOTE | 2017-12-10 11:35 | P.PN ---
Progress Note - Text Progress Note Date: 12/10/17 The patient resting comfortably in his bed. He did not appear to be in any distress. On exam his vital signs are stable. His abdomen soft. Patient was started on clear liquid diet.
--- NOTE | 2017-12-10 11:53 | P.HPIM ---
History of Present Illness Patient is known to me from the past with multiple episodes of ileus came in with similar symptoms. Was not eating for some time patient is mostly nonverbal. No other significant abnormality disorder patient patient doesn't have any fever patient did have bowel movement today. Patient was evaluated by Dr. fairchild who knows the patient very well patient had an NG tube yesterday which she was unable to tolerate because of which it was discontinued. Advancement of the diet as per surgery. at this point of time doesn't have any signs or symptoms of sepsis or infection. Review of Systems Unable to obtain Past Medical History Past Medical History: Seizure Disorder Additional Past Medical History / Comment(s): SEVERLY PREMATURE AT RESULTING IN CEREBRAL PALSY AND MENTAL RETARDATION, PT DOES WEAR BRIEFS/ occasionally incontinent of urine and stool-family toilets pt about q 2 hours, aphasic, will nod head yes and no and knows small amount of sign language, NECROTIZING ENTEROCOLITIS WHEN YOUNGER, HAS HAD HX OF CONSTIPATION, BOWEL OBSTRUCTIONS(ILEUS), SEIZURE DISORDER-last seizure yrs ago -nOT CURENTLY ON MEDS , PAST ASPIRATION- ESOPHAGUS TOO LARGE-HAD PROCEDURE TO MAKE SMALLER, SO PT IS NOT ABLE TO VOMIT. History of Any Multi-Drug Resistant Organisms: None Reported Past Surgical History: Bowel Resection Additional Past Surgical History / Comment(s): 12/10/15 colonoscopy, oral surgery , esphogeal surgery for large esophagus-PT IS UNABLE TO THROW UP, partial lower intestine removed, shunt in brain, repaired a hole in his heart as -went in through his back, Past Anesthesia/Blood Transfusion Reactions: No Reported Reaction Smoking Status: Never smoker - Past Family History Mother Family Medical History: Cancer Additional Family Medical History / Comment(s): BREAST CANCER-mother is 63 yrs old. Father Family Medical History: Seizure Disorder Additional Family Medical History / Comment(s): Father is 60 rs old. Medications and Allergies Home Medications Medication Instructions Recorded Confirmed Type Psyllium Husk (with Sugar) 6 gm PO DAILY 05/10/17 12/09/17 History [Metamucil Powder] Allergies Allergy/AdvReac Type Severity Reaction Status Date / Time No Known Allergies Allergy Verified 12/09/17 07:51 Physical Exam Vitals: Vital Signs Temp Pulse Pulse Resp BP Pulse Ox 12/10/17 08:12 96.9 F L 87 18 124/70 100 12/10/17 08:00 87 18 12/09/17 23:00 97.6 F 96 16 120/72 94 L 12/09/17 15:05 97.5 F L 90 18 129/81 98 12/09/17 12:44 96.7 F L 109 H 16 138/90 96 12/09/17 12:22 106 H 20 96 Intake and Output 12/09/17 12/10/17 12/10/17 22:59 06:59 14:59 Intake Total 590 450 Balance 590 450 Intake: IV 450 .9 450 Oral 590 0 Other: Voiding Method Toilet Toilet Diaper Diaper # Voids 2 1 # Bowel Movements 1 1 PHYSICAL EXAMINATION: GENERAL: The patient is alert and able to assess his orientation, not in any acute distress. Thin built HEENT: Pupils are round and equally reacting to light. EOMI. No scleral icterus. No conjunctival pallor. Normocephalic, atraumatic. No pharyngeal erythema. No thyromegaly. CARDIOVASCULAR: S1 and S2 present. No murmurs, rubs, or gallops. PULMONARY: Chest is clear to auscultation, no wheezing or crackles. ABDOMEN: Soft, nontender, nondistended, normoactive bowel sounds. No palpable organomegaly. MUSCULOSKELETAL: No joint swelling or deformity. EXTREMITIES: No cyanosis, clubbing, or pedal edema. NEUROLOGICAL: Gross neurological examination did not reveal any focal deficits. SKIN: No rashes. Results CBC & Chem 7: 12/10/17 07:20 12/10/17 07:20 Labs: Abnormal Lab Results - Last 24 Hours (Table) 12/09/17 12/10/17 Range/Units 16:14 07:20 Glucose 65 L (74-99) mg/dL Ur Specific [place] >1.050 H (1.001-1.035) Urine Protein Trace H (Negative) Urine Ketones 4+ H (Negative) Thrombosis Risk Factor Assmnt - Choose All That Apply Any of the Below Risk Factors Present?: No Other Risk Factors: No Other congenital or acquired thrombophilia - If yes, enter type in comment: No Thrombosis Risk Factor Assessment Level: Very Low Risk Assessment and Plan Plan: Ileus: Appears to be improving now his diet probably can be advanced but I'll leave the addition to surgery. Patient is scheduled for sigmoidoscopy on Tuesday. Patient will be switched to Toradol and Pepcid instead of morphine. -Cerebral palsy supportive care
[2017-12-11] MEDS: FAMOTIDINE 20 MG TAB PO SCH ×2 (08:18→21:40)
--- NOTE | 2017-12-11 10:39 | P.PN ---
Progress Note - Text Progress Note Date: 12/11/17 The patient is resting comfortable in his bed. He does not appear to be in any distress. On exam is lesser stable. His abdomen soft. There is minimal distention. Patient will have his diet advanced to full liquids. His ileus appears to be resolving.
--- NOTE | 2017-12-11 11:24 | P.PN ---
Subjective Patient was admitted for ileus his symptoms resolved and patient had multiple bowel movements. No overnight events. Objective - Vital Signs Vital signs: Vital Signs Temp 96.9 F L 12/11/17 08:59 Pulse 68 12/11/17 08:59 Resp 18 12/11/17 08:59 BP 146/82 12/11/17 08:59 Pulse Ox 100 12/11/17 08:59 Intake & Output 12/10/17 12/11/17 12/11/17 18:59 06:59 18:59 Intake Total 0 Balance 1939 Intake: IV 400 .9 400 Oral 1540 Other: Voiding Method Toilet Toilet Toilet Diaper Diaper Diaper # Voids 4 1 # Bowel Movements 1 1 1 - Exam PHYSICAL EXAMINATION: GENERAL: The patient is alert and able to assess his orientation, not in any acute distress. Thin built HEENT: Pupils are round and equally reacting to light. EOMI. No scleral icterus. No conjunctival pallor. Normocephalic, atraumatic. No pharyngeal erythema. No thyromegaly. CARDIOVASCULAR: S1 and S2 present. No murmurs, rubs, or gallops. PULMONARY: Chest is clear to auscultation, no wheezing or crackles. ABDOMEN: Soft, nontender, nondistended, normoactive bowel sounds. No palpable organomegaly. MUSCULOSKELETAL: No joint swelling or deformity. EXTREMITIES: No cyanosis, clubbing, or pedal edema. NEUROLOGICAL: Gross neurological examination did not reveal any focal deficits. SKIN: No rashes. - Labs CBC & Chem 7: 12/10/17 07:20 12/10/17 07:20 Assessment and Plan Plan: Ileus: Appears to be improved, diet advancement as per surgery patient did eat today. Patient is scheduled for sigmoidoscopy on Tuesday. Patient will be switched to Toradol and Pepcid instead of morphine. -Cerebral palsy supportive care
[2017-12-12] MEDS: FAMOTIDINE 20 MG TAB PO SCH ×2 (07:47→22:21)
--- NOTE | 2017-12-12 10:29 | P.PN ---
Subjective Progress Note Date: 12/12/17 27-year-old male who presented to the ER on 12/09/2017 with his mother with a chief complaint of abdominal pain. Patient has a history of multiple bowel obstructions. His mother is not at the bedside, but according to ER records his mother is usually able to tell when he has one based upon his decreased appetite. Apparently, these symptoms were present for the last 3-[address] abdomen and pelvis: Multiple marked dilated small bowel loops with fluid and air-fluid levels. Findings are suggestive for small bowel obstruction. With air present within the colon, ileus should be considered within the differential. The patient was seen and examined at the bedside on rounds with Dr. Mayes. Patient is awake and alert, watching movies at the bedside. He is nonverbal, which is his baseline. He does not appear to be in any distress. Patient has been having bowel movements. He is NPO for sigmoidoscopy today with Dr. León. He is afebrile. Blood pressure 108/70. Objective - Vital Signs Vital signs: Vital Signs Temp 96.6 F L 12/12/17 07:00 Pulse 55 L 12/12/17 07:00 Resp 16 12/12/17 07:00 BP 108/70 12/12/17 07:00 Pulse Ox 96 12/12/17 07:00 Intake & Output 12/11/17 12/12/17 12/12/17 18:59 06:59 18:59 Intake Total 575 Balance 575 Intake: IV 575 .9 575 Other: Voiding Method Toilet Toilet Toilet Diaper Diaper Diaper # Voids 3 3 # Bowel Movements 3 - Exam GENERAL: This is a 27-year-old male in no apparent distress at the time of examination. HEENT: Head is atraumatic, normocephalic. Pupils are equal, round, and reactive to light. Sclerae anicteric. Conjunctivae are clear. Mucus membranes of the mouth are moist. Neck is supple. RESPIRATORY: Clear to ausculation. No wheezes, rales, or rhonchi. No use of accessory muscles. Patient maintaining oxygen saturation greater than 92% CARDIOVASCULAR: Regular rate and rhythm. S1 and S2 noted. No systolic or diastolic murmur auscultated. No JVD noted. No S3 or S4 noted. GASTROINTESTINAL: No distention noted. Abdomen soft and round. Bowel sounds auscultated x 4 quadrants. INTEGUMENTARY: No cyanosis. No jaundice. No rashes noted. No cellulitis noted. EXTREMITIES: 2+ peripheral pulses. No evidence of peripheral edema. No calf tenderness noted. PSYCHIATRIC: Awake and alert. Patient is nonverbal, which is his baseline. 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 Appreciate recommendations and input Patient scheduled for sigmoidoscopy today Continue NPO. May begin clear liquid diet after scope and advance as tolerated Home meds as appropriate Monitor labs GI prophylaxis: Pepcid 20mg PO BID DVT prophylaxis: SCDs to bilateral lower extremities Monitor vital signs and address as appropriate Further recommendations pending patient's course Nurse practitioner note has been reviewed by physician. Signing provider agrees with the documented findings, assessment, and plan of care.
[2017-12-12] MEDS ORDERED: PROPOFOL 10 MG/ML 20 ML VIAL IV ONE (11:59)
[2017-12-12] MEDS ORDERED: IV FLUID CONTINUATION 500 ML IV ONE (12:02)
--- NOTE | 2017-12-12 12:20 | P.PN ---
Progress Note - Text Progress Note Date: 12/12/17 No significant changes over the weekend. Patient doing well with some bowel function now. Will proceed with sigmoid endoscopy.
--- NOTE | 2017-12-12 12:28 | P.PCN ---
Date of Procedure: 12/12/17 Procedure(s) Performed: PREOPERATIVE DIAGNOSIS: Recurrent ileus, rule out rectal obstruction POSTOPERATIVE DIAGNOSIS: Normal exam PROCEDURE: Flexible sigmoidoscopy ANESTHESIA: MAC SURGEON: Trae León M.D. SPECIMENS: None ENDOSCOPIC PROCEDURE: The patient was placed on the endoscopy table in the left decubitus position. The Olympus colonoscope was inserted into the anus and passed under direct visualization to the proximal sigmoid colon. The patient did not have a bowel prep and therefore there was solid stool seen scattered throughout the sigmoid and rectum. The mucosal surfaces however were able to be visualized fairly well. No abnormalities were identified. I was not able to visualize a definite anastomosis. There were no strictures or narrowings present. There did not appear to be any narrowing of the distal rectum. Digital rectal examination was normal. The patient was taken to the recovery room in stable condition per anesthesia guidelines. RECOMMENDATIONS: Resume diet. Digital rectal stimulation.
[2017-12-12] MEDS: LACTATED RINGERS 1,000 ML IV SCH (12:41)
[2017-12-13] MEDS: LACTATED RINGERS 1,000 ML IV SCH (07:43)
[2017-12-13 07:57] VITALS: BP 113/73; TEMP 98.8
[2017-12-13] MEDS: FAMOTIDINE 20 MG TAB PO SCH (09:38)
[2017-12-13 10:52] VITALS: PULSE 97; RESP 16
--- NOTE | 2017-12-13 11:56 | P.PN ---
Subjective Progress Note Date: 12/13/17 Principal diagnosis: Ileus Patient appears alert without complaints. He is sitting up and appears to be tolerating his diet. He is having bowel function. Plans are underway for discharge. Objective - Vital Signs Vital signs: Vital Signs Temp 98.8 F 12/13/17 07:50 Pulse 97 12/13/17 10:41 Resp 16 12/13/17 10:41 BP 113/73 12/13/17 07:50 Pulse Ox 97 12/13/17 07:50 Intake & Output 12/12/17 12/13/17 12/13/17 18:59 06:59 18:59 Intake Total 490 410 Balance 490 410 Weight 58.967 kg Intake: IV 490 .9 240 Intake, IV Titration 60 Amount Lactated Ringers 1,000 ml 60 @ 20 mls/hr IV .Q24H [facility] Rx#:[id number] Oral 350 Other: Voiding Method Toilet Toilet Toilet Diaper Diaper Diaper # Voids 4 1 # Bowel Movements 1 - Exam Abdomen: Soft, nontender, nondistended - Labs CBC & Chem 7: 12/10/17 07:20 12/10/17 07:20 Assessment and Plan (1) Ileus Narrative/Plan: Continue ambulation. Continue stool softeners post discharge. Digital rectal stimulation advised to elicit routine bowel function. Current Visit: No Status: Acute Code(s): K56.7 - ILEUS, UNSPECIFIED SNOMED Code(s): 324405043
--- NOTE | 2017-12-13 13:49 | P.DS ---
Providers Date of admission: 12/09/17 10:32 Expected date of discharge: 12/13/17 Attending physician: Jon Mayes Consults: 12/09/17 10:51 Consult Physician Stat Consulting Provider: Trae León Consult Reason/Comments: SBO Do you want consulting provider notified?: Yes Primary care physician: Jon Mayes [facility] Course: 27-year-old male who presented to the ER on 12/09/2017 with his mother with a chief complaint of abdominal pain. Patient has a history of multiple bowel obstructions. His mother is not at the bedside, but according to ER records his mother is usually able to tell when he has one based upon his decreased appetite. Apparently, these symptoms were present for the last 3-[address] abdomen and pelvis: Multiple marked dilated small bowel loops with fluid and air-fluid levels. Findings are suggestive for small bowel obstruction. With air present within the colon, ileus should be considered within the differential. Patient underwent sigmoidoscopy with Dr. León which was unremarkable and did not show evidence of rectal obstruction. The patient is tolerating a regular diet without nausea or vomiting. He is having bowel movements. He is overall back to his baseline. He was deemed stable for discharge per Dr. Mayes. 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 Signing provider agrees with the documented findings, assessment, and plan of care. Patient Condition at Discharge: Stable Plan - Discharge Summary Discharge Rx Participant: No New Discharge Prescriptions: Continue Psyllium Husk (with Sugar) [Metamucil Powder] 6 gm PO DAILY Discharge Medication List Psyllium Husk (with Sugar) [Metamucil Powder] 6 gm PO DAILY 05/10/17 [History] Follow up Appointment(s)/Referral(s): Trae León MD [Medical Doctor] - 2 Weeks Jon Mayes DO [Primary Care Provider] - 1 Week Discharge Disposition: HOME SELF-CARE
== END 2017-12-13 17:37 | disposition home or self-care (01) | DRG 389 ==
LOC: EC 07:34 → 5MS5E 10:32
PROVIDERS: ADMIT Family Medicine; ATTEND Family Medicine
PROC: 0DJD8ZZ Inspection of Lower Intestinal Tract, Via Natural or Artificial Opening Endoscopic (ICD-10-PCS; principal; 2017-12-12 07:30)
DX: K56.7 Ileus, unspecified (principal); R47.01 Aphasia; F72 Severe intellectual disabilities; G80.9 Cerebral palsy, unspecified; Z80.3 Family history of malignant neoplasm of breast; Z82.0 Family history of epilepsy and other diseases of the nervous system; Z90.49 Acquired absence of other specified parts of digestive tract; Z98.2 Presence of cerebrospinal fluid drainage device; Z87.74 Personal history of (corrected) congenital malformations of heart and circulatory system
CPT/HCPCS: 36415; 43753; 45330; 71045; 74019; 74177; 80053; 81003; 82150; 83605; 83690; 85025; 96360; 96361; 99285

== ENCOUNTER 2018-01-25 07:23 | Inpatient (IN) | payer MEDICARE, OTHER ==
--- NOTE | 2018-01-25 08:47 | ED ---
Abdominal Pain HPI - General Chief Complaint: Abdominal Pain Stated Complaint: GI problems Time Seen by Provider: 01/25/18 08:11 Source: patient, family, RN notes reviewed Mode of arrival: ambulatory Limitations: language barrier, altered mental status - History of Present Illness Initial Comments: This is a 27-year-old male who is new, developmentally delayed with family presents emergency department for concerns of small bowel obstruction. Patient had recurrent small bowel obstructions and ileus in the past. Patient usually presents with anorexia and constipation. This has been present for last few days his been no reported fever no vomiting. Patient has been seen by Dr León and Dr. Whyte in the past. Patient has had other abdominal surgeries. Patient reports no other complaints. - Related Data Home Medications Medication Instructions Recorded Confirmed Psyllium Husk (with Sugar) 6 gm PO DAILY 05/10/17 01/25/18 [Metamucil Powder] Allergies Allergy/AdvReac Type Severity Reaction Status Date / Time No Known Allergies Allergy Verified 01/25/18 08:11 Review of Systems ROS Statement: Those systems with pertinent positive or pertinent negative responses have been documented in the HPI. ROS Other: All systems not noted in ROS Statement are negative. Past Medical History Past Medical History: Seizure Disorder Additional Past Medical History / Comment(s): SEVERLY PREMATURE AT RESULTING IN CEREBRAL PALSY AND MENTAL RETARDATION, PT DOES WEAR BRIEFS/ occasionally incontinent of urine and stool-family toilets pt about q 2 hours, aphasic, will nod head yes and no and knows small amount of sign language, NECROTIZING ENTEROCOLITIS WHEN YOUNGER, HAS HAD HX OF CONSTIPATION, BOWEL OBSTRUCTIONS(ILEUS), SEIZURE DISORDER-last seizure yrs ago -nOT CURENTLY ON MEDS , PAST ASPIRATION- ESOPHAGUS TOO LARGE-HAD PROCEDURE TO MAKE SMALLER, SO PT IS NOT ABLE TO VOMIT. 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 Father Family Medical History: Seizure Disorder Additional Family Medical History / Comment(s): Father is 60 rs old. General Exam General appearance: alert, in no apparent distress Head exam: Present: atraumatic, normocephalic, normal inspection Respiratory exam: Present: normal lung sounds bilaterally. Absent: respiratory distress, wheezes, rales, rhonchi, stridor Cardiovascular Exam: Present: regular rate, normal rhythm, normal heart sounds. Absent: systolic murmur, diastolic murmur, rubs, gallop, clicks GI/Abdominal exam: Present: soft, distended, tenderness (Patient appears uncomfortable with palpation), normal bowel sounds. Absent: guarding, rebound, rigid Back exam: Absent: CVA tenderness (R), CVA tenderness (L) Skin exam: Present: warm, dry Course Vital Signs 01/25/18 07:24 Temperature 98 F Pulse Rate 121 H Respiratory 18 Rate Blood Pressure 140/96 O2 Sat by Pulse 96 Oximetry Medical Decision Making - Lab Data Result diagrams: 01/25/18 09:11 01/25/18 09:11 Lab Results 01/25/18 01/25/18 Range/Units 09:11 09:11 WBC 13.0 H (3.8-10.6) k/uL RBC 6.01 H (4.30-5.90) m/uL Hgb 16.5 (13.0-17.5) gm/dL Hct 49.1 (39.0-53.0) % MCV 81.7 (80.0-100.0) fL MCH 27.4 (25.0-35.0) pg MCHC 33.6 (31.0-37.0) g/dL RDW 13.1 (11.5-15.5) % Plt Count 318 (150-450) k/uL Neutrophils % 81 % Lymphocytes % 7 % Monocytes % 10 % Eosinophils % 1 % Basophils % 0 % Neutrophils # 10.5 H (1.3-7.7) k/uL Lymphocytes # 0.9 L (1.0-4.8) k/uL Monocytes # 1.3 H (0-1.0) k/uL Eosinophils # 0.1 (0-0.7) k/uL Basophils # 0.0 (0-0.2) k/uL Sodium 141 (137-145) mmol/L Potassium 4.5 (3.5-5.1) mmol/L Chloride 98 (98-107) mmol/L Carbon Dioxide 25 (22-30) mmol/L Anion Gap 18 mmol/L BUN 21 H (9-20) mg/dL Creatinine 0.72 (0.66-1.25) mg/dL Est GFR (CKD-EPI)AfAm >90 (>60 ml/min/1.73 sqM) Est GFR (CKD-EPI)NonAf >90 (>60 ml/min/1.73 sqM) Glucose 124 H (74-99) mg/dL Calcium 10.4 H (8.4-10.2) mg/dL Total Bilirubin 0.7 (0.2-1.3) mg/dL AST 30 (17-59) U/L ALT 30 (21-72) U/L Alkaline Phosphatase 53 (38-126) U/L Total Protein 8.7 H (6.3-8.2) g/dL Albumin 5.3 H (3.5-5.0) g/dL Lipase 26 (23-300) U/L Disposition Clinical Impression: Colonic obstruction, Abdominal pain Disposition: ADMITTED IP TO THIS [facility] Condition: Stable Referrals: Jon Mayes DO [Primary Care Provider] - 1-2 days
--- NOTE | 2018-01-25 09:04 | XR ---
EXAMINATION TYPE: XR KUB DATE OF EXAM: 01/25/2018 COMPARISON: 10/06/[address] abdomen pelvis 12/09/2017. INDICATION: Abdominal pain constipation TECHNIQUE: Single view abdomen upright view FINDINGS: There are some dilated small bowel loops within the left lower quadrant. Couple of air-fluid levels a re within the midabdomen. The colonic air-fluid levels within the upper abdomen. Some air-fluid levels are within small bowel l oops in the left of the abdomen. Milder ileus type pattern was present September 2017. A similar patte rn was on the CT of November 2017. Psoas margins are normal. No organomegaly is present. No suspicious calcifications are evident. IMPRESSION: 1. Correlate for ileus and partial small bowel obstruction. Portion of the ileus may be colonic. Dist al colonic obstruction could be considered. Consider CT abdomen pelvis for additional workup.
[2018-01-25 09:32] LABS: Basophils % (A) 0 %; Eosinophils # (A) 0.1 k/uL (0-0.7); Eosinophils % (A) 1 %; HCT 49.1 % (39.0-53.0); HGB 16.5 gm/dL (13.0-17.5); Lymphocytes # (A) 0.9 k/uL (1.0-4.8); Lymphocytes % (A) 7 %; MCH 27.4 pg (25.0-35.0); MCHC 33.6 g/dL (31.0-37.0); MCV 81.7 fL (80.0-100.0); Mean Platelet Volume 7.3; Monocytes # (A) 1.3 k/uL (0-1.0); Monocytes % (A) 10 %; Neutrophils # (A) 10.5 k/uL (1.3-7.7); Neutrophils % (A) 81 %; Platelet Count 318 k/uL (150-450); RBC 6.01 m/uL (4.30-5.90); RDW 13.1 % (11.5-15.5)
[2018-01-25 09:56] LABS: Albumin 5.3 g/dL (3.5-5.0); Anion Gap 18 mmol/L; Calcium 10.4 mg/dL (8.4-10.2); Carbon Dioxide 25 mmol/L (22-30); Chloride 98 mmol/L (98-107); Glucose 124 mg/dL (74-99); Lipase 26 U/L (23-300); Sodium 141 mmol/L (137-145); Total Bilirubin 0.7 mg/dL (0.2-1.3); Total Protein 8.7 g/dL (6.3-8.2)
[2018-01-25 10:14] LABS: Blood Urea Nitrogen 21 mg/dL (9-20); Potassium 4.5 mmol/L (3.5-5.1)
[2018-01-25 10:15] LABS: ALT 30 U/L (21-72); AST 30 U/L (17-59); Alkaline Phosphatase 53 U/L (38-126)
[2018-01-25] MEDS ORDERED: NALOXONE 0.4 MG/ML 1 ML VIAL IV PRN (10:34)
[2018-01-25] MEDS ORDERED: ONDANSETRON 4 MG/2 ML VIAL IVP PRN (10:35)
[2018-01-25] MEDS: SODIUM CHLORIDE 0.9% 1,000 ML IV SCH ×3 (13:43→21:11)
--- NOTE | 2018-01-25 15:14 | P.GSCN ---
History of Present Illness Consult date: 01/25/18 Reason for Consult: Abdominal pain constipation History of present illness: 27-year-old male well known to Dr. León service is being seen at the request of the attending for abdominal pain. Patient is developmentally delayed. No family at the bedside. Health history and events have been obtained from interviewing nursing staff and reviewing prior computerized records family presented the patient to the emergency room secondary to a concern of developing a small bowel obstruction. Apparently had not had a bowel movement in days. There was no report of fever chills. Patient reportedly was urinating without difficulty. has had multiple abdominal surgeries in the past. X-ray in the emergency room report indicated correlate for ileus and partial small bowel obstruction portion of the ileus may be chronic. Patient was just hospitalized 12/13/[address] León at that admission had discussed with the parents patient would benefit from digital rectal stimulation to elicit routine bowel function Patient had undergone on 12/13/2015 a flexible sigmoidoscopy for recurrent ileus to rule out rectal obstruction Currently the patient is sitting up in bed did ambulate to the bathroom urinated and did have moderate liquid stool per nursing report Review of Systems Essentially unremarkable except as mentioned in present Past Medical History Past Medical History: Seizure Disorder Additional Past Medical History / Comment(s): SEVERLY PREMATURE AT RESULTING IN CEREBRAL PALSY AND MENTAL RETARDATION, PT DOES WEAR BRIEFS/ occasionally incontinent of urine and stool-family toilets pt about q 2 hours, aphasic, will nod head yes and no and knows small amount of sign language, NECROTIZING ENTEROCOLITIS WHEN YOUNGER, HAS HAD HX OF CONSTIPATION, BOWEL OBSTRUCTIONS(ILEUS), SEIZURE DISORDER-last seizure yrs ago -nOT CURENTLY ON MEDS , PAST ASPIRATION- ESOPHAGUS TOO LARGE-HAD PROCEDURE TO MAKE SMALLER, SO PT IS NOT ABLE TO VOMIT. 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 Father Family Medical History: Seizure Disorder Additional Family Medical History / Comment(s): Father is 60 rs old. Medications and Allergies Home Medications Medication Instructions Recorded Confirmed Type Psyllium Husk (with Sugar) 6 gm PO DAILY 05/10/17 01/25/18 History [Metamucil Powder] Allergies Allergy/AdvReac Type Severity Reaction Status Date / Time No Known Allergies Allergy Verified 01/25/18 08:11 Surgical - Exam Vital Signs Temp Pulse Resp BP Pulse Ox 98 F 121 H 18 140/96 96 01/25/18 07:24 01/25/18 07:24 01/25/18 07:24 01/25/18 07:24 01/25/18 07:24 GENERAL APPEARANCE: 27-year-old male thin cachectic underweight alert, in no acute distress. Sitting up in bed aphasic nods nod head to yes or no pleasant cooperative VITAL SIGNS: Reviewed HEENT: Head is normocephalic and atraumatic. Pupils are equal and reactive. The nares are patent. Oropharynx is clear without lesions. NECK: Supple without lymphadenopathy. Traches midline. HEART: S1, S2. Regular rate and rhythm. LUNGS: No crackles or wheezes are heard. ABDOMEN: Soft, several well-healed scars to abdominal wall mildly tender nondistended with good bowel sounds. No peritoneal signs. No palpable organomegaly or masses. Nursing reports patient did have one moderate liquid stool urinating no difficulty EXTREMITIES: Normal skin color and turgor. No cyanosis, rash, ulceration, clubbing or edema. Radial pedal pulses are 2/4 bilaterally. . Results - Labs 01/25/18 09:11 01/25/18 09:11 Abnormal Lab Results - Last 24 Hours (Table) 01/25/18 01/25/18 Range/Units 09:11 09:11 WBC 13.0 H (3.8-10.6) k/uL RBC 6.01 H (4.30-5.90) m/uL Neutrophils # 10.5 H (1.3-7.7) k/uL Lymphocytes # 0.9 L (1.0-4.8) k/uL Monocytes # 1.3 H (0-1.0) k/uL BUN 21 H (9-20) mg/dL Glucose 124 H (74-99) mg/dL Calcium 10.4 H (8.4-10.2) mg/dL Total Protein 8.7 H (6.3-8.2) g/dL Albumin 5.3 H (3.5-5.0) g/dL Diabetes panel 01/25/18 Range/Units 09:11 Sodium 141 (137-145) mmol/L Potassium 4.5 (3.5-5.1) mmol/L Chloride 98 (98-107) mmol/L Carbon Dioxide 25 (22-30) mmol/L BUN 21 H (9-20) mg/dL Creatinine 0.72 (0.66-1.25) mg/dL Glucose 124 H (74-99) mg/dL Calcium 10.4 H (8.4-10.2) mg/dL AST 30 (17-59) U/L ALT 30 (21-72) U/L Alkaline Phosphatase 53 (38-126) U/L Total Protein 8.7 H (6.3-8.2) g/dL Albumin 5.3 H (3.5-5.0) g/dL Calcium panel 01/25/18 Range/Units 09:11 Calcium 10.4 H (8.4-10.2) mg/dL Albumin 5.3 H (3.5-5.0) g/dL Pituitary panel 01/25/18 Range/Units 09:11 Sodium 141 (137-145) mmol/L Potassium 4.5 (3.5-5.1) mmol/L Chloride 98 (98-107) mmol/L Carbon Dioxide 25 (22-30) mmol/L BUN 21 H (9-20) mg/dL Creatinine 0.72 (0.66-1.25) mg/dL Glucose 124 H (74-99) mg/dL Calcium 10.4 H (8.4-10.2) mg/dL Adrenal panel 01/25/18 Range/Units 09:11 Sodium 141 (137-145) mmol/L Potassium 4.5 (3.5-5.1) mmol/L Chloride 98 (98-107) mmol/L Carbon Dioxide 25 (22-30) mmol/L BUN 21 H (9-20) mg/dL Creatinine 0.72 (0.66-1.25) mg/dL Glucose 124 H (74-99) mg/dL Calcium 10.4 H (8.4-10.2) mg/dL Total Bilirubin 0.7 (0.2-1.3) mg/dL AST 30 (17-59) U/L ALT 30 (21-72) U/L Alkaline Phosphatase 53 (38-126) U/L Total Protein 8.7 H (6.3-8.2) g/dL Albumin 5.3 H (3.5-5.0) g/dL Assessment and Plan Assessment: Impression Present on admission abdominal pain with constipation suspect due to an ileus Developmentally delayed with cerebral palsy History of recurrent admissions for Abdominal pain due to recurrent ileus History of multiple abdominal surgeries History of esophageal constriction Plan Nasal gastric tube to be placed to suction Keep nothing by mouth for now IV fluid for hydration Resume bowel regime DVT and GI prophylaxis Further surgical recommendations pending will follow with you Repeat an abdominal x-ray in the morning Surgical consultation note dictated for Dr. del real The above impression and plan of care have been discussed and directed by signing physician. Inez Feng nurse practitioner acting as scribe for signing physician.
[2018-01-25] MEDS: PANTOPRAZOLE 40 MG/10 ML VIAL IVP SCH (17:09)
[2018-01-26] MEDS: SODIUM CHLORIDE 0.9% 1,000 ML IV SCH ×3 (06:04→10:02)
[2018-01-26 07:26] LABS: Appearance,Urine Clear (Clear); Bilirubin,Urine 1+ (Negative); Blood,Urine Negative (Negative); Color,Urine Yellow; Glucose,Urine (UA) Negative (Negative); Hyaline Casts,Urine 3 /lpf (0-2); Ketones,Urine 4+ (Negative); Leukocyte Esterase,Urine Negative (Negative); Mucus,Urine Few /hpf; Nitrite,Urine Negative (Negative); Protein,Urine 1+ (Negative); RBC,Urine <1 /hpf (0-5); Specific Gravity,Urine 1.032 (1.001-1.035); WBC,Urine 1 /hpf (0-5)
--- NOTE | 2018-01-26 07:51 | XR ---
EXAMINATION TYPE: XR abdomen 2V DATE OF EXAM: 01/26/2018 6:59 AM CLINICAL HISTORY: Abdominal pain TECHNIQUE: Upright and supine abdominal radiographs COMPARISON: 01/25/2018. FINDINGS: There remains large and small bowel dilatation with differential air-fluid levels, however enteric tube has been placed in the interim and there is some improvement in degree of bowel dilation . Enteric tube has its fenestrated portion beyond the gastroesophageal junction, appropriately placed . Due to extensive overlying bowel measurements of large and small bowel are difficult to accurately delineate the largest size. No pneumoperitoneum is noted. Lung bases are well aerated. IMPRESSION: Slight improved degree of bowel dilatation status post placement of an appropriately plac ed enteric tube, although numerous differential air-fluid levels and persistent dilated loops of larg e and small bowel are seen. Continued follow-up is recommended.
[2018-01-26] MEDS: PANTOPRAZOLE 40 MG/10 ML VIAL IVP SCH (08:51)
[2018-01-26 09:09] LABS: Basophils % (A) 0 %; Eosinophils % (A) 1 %; HCT 44.2 % (39.0-53.0); HGB 14.8 gm/dL (13.0-17.5); Lymphocytes # (A) 0.7 k/uL (1.0-4.8); Lymphocytes % (A) 11 %; MCH 27.9 pg (25.0-35.0); MCHC 33.5 g/dL (31.0-37.0); MCV 83.3 fL (80.0-100.0); Monocytes # (A) 0.9 k/uL (0-1.0); Monocytes % (A) 13 %; Neutrophils # (A) 4.6 k/uL (1.3-7.7); Neutrophils % (A) 72 %; Platelet Count 258 k/uL (150-450); RDW 13.4 % (11.5-15.5); WBC 6.3 k/uL (3.8-10.6)
[2018-01-26 09:27] LABS: ALT 29 U/L (21-72); AST 18 U/L (17-59); Albumin 4.3 g/dL (3.5-5.0); Alkaline Phosphatase 44 U/L (38-126); Anion Gap 17 mmol/L; Blood Urea Nitrogen 24 mg/dL (9-20); Calcium 9.5 mg/dL (8.4-10.2); Carbon Dioxide 23 mmol/L (22-30); Chloride 105 mmol/L (98-107); Glucose 89 mg/dL (74-99); Potassium 4.1 mmol/L (3.5-5.1); Sodium 145 mmol/L (137-145); Total Bilirubin 0.5 mg/dL (0.2-1.3); Total Protein 6.8 g/dL (6.3-8.2)
[2018-01-26 09:45] VITALS: BMI 19.2
--- NOTE | 2018-01-26 11:40 | P.HPIM ---
History of Present Illness H&P Date: 01/26/18 Chief Complaint: abdominal pain 27-year-old male who presented to the emergency room on 01/25/2018 by his family for complaints of constipation as patient had not had a bowel movement in 3-4 days. Patient is developmentally delayed and he is nonverbal. The patient has been admitted multiple times to the hospital for bowel obstructions that usually resolved with NG tube and bowel rest. The patient was most recently admitted to the hospital in November 2017 for recurrent ileus. He was seen by Dr. Barnes at that time. He underwent a flexible sigmoidoscopy on 12/12/2017 which revealed normal findings. There were no strictures or narrowing present. Digital rectal examination was normal. Dr. Barnes recommended digital rectal stimulation at that time. KUB x-ray: Correlate for ileus and partial small bowel obstruction. Portion of the ileus may be colonic. Distal colonic obstruction could be considered. Abdominal x-ray: Slight improved degree of bowel dilation status post placement of an appropriately placed enteric tube, although numerous differential air fluid levels and persistent dilated loops of large and small bowel are seen. Laboratory data: WBC 13.0. Hemoglobin 16.5. Platelet count 318. Sodium 141. Potassium 4.5. BUN 21. Creatinine 0.72. Glucose 124. Calcium 10.4. Urinalysis reveals: 1+ proteinuria, 4+ ketones, 1+ bilirubin, 3 hyaline casts, few mucus The patient was admitted to the hospital under the care of Dr. Mayes. Consultations were placed to Gen. surgery. The patient was seen and examined at the bedside on rounds with Dr. Mayes. The patient is awake and alert. He is nonverbal, which is his baseline. His abdomen is soft and does not appear distended. The patient has an NG tube placed to low intermittent suction with approximately 800 mL of brown drainage. Apparently, the patient did have a liquid stool yesterday prior to insertion of NG tube. Review of Systems ROS unobtainable: due to mental status Past Medical History Past Medical History: Seizure Disorder Additional Past Medical History / Comment(s): SEVERLY PREMATURE AT RESULTING IN CEREBRAL PALSY AND MENTAL RETARDATION, PT DOES WEAR BRIEFS/ occasionally incontinent of urine and stool-family toilets pt about q 2 hours, aphasic, will nod head yes and no and knows small amount of sign language, NECROTIZING ENTEROCOLITIS WHEN YOUNGER, HAS HAD HX OF CONSTIPATION, BOWEL OBSTRUCTIONS(ILEUS), SEIZURE DISORDER-last seizure yrs ago -nOT CURENTLY ON MEDS , PAST ASPIRATION- ESOPHAGUS TOO LARGE-HAD PROCEDURE TO MAKE SMALLER, SO PT IS NOT ABLE TO VOMIT. 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 Father Family Medical History: Seizure Disorder Additional Family Medical History / Comment(s): Father is 60 rs old. Medications and Allergies Home Medications Medication Instructions Recorded Confirmed Type Psyllium Husk (with Sugar) 6 gm PO DAILY 05/10/17 01/25/18 History [Metamucil Powder] Allergies Allergy/AdvReac Type Severity Reaction Status Date / Time No Known Allergies Allergy Verified 01/25/18 08:11 Physical Exam Vitals: Vital Signs Temp Pulse Resp BP Pulse Ox 01/26/18 06:26 97.6 F 74 16 143/85 95 01/25/18 23:00 97.0 F L 79 16 132/73 96 01/25/18 14:47 97.8 F 86 17 149/87 97 Intake and Output 01/25/18 01/26/18 01/26/18 22:59 06:59 14:59 Intake Total 0 Output Total 225 200 Balance -225 -200 Intake: Oral 0 Output: Gastric Drainage 225 Urine 200 Other: Voiding Method Toilet Toilet # Voids 0 0 # Bowel Movements 1 Weight 58.967 kg 58.967 kg GENERAL: This is a 27-year-old male in no apparent distress at the time of examination. Pleasant and cooperative. HEENT: Head is atraumatic, normocephalic. Pupils are equal, round, and reactive to light. Sclerae anicteric. Conjunctivae are clear. Mucus membranes of the mouth are moist. Neck is supple. RESPIRATORY: Clear to ausculation. No wheezes, rales, or rhonchi. No use of accessory muscles. Patient maintaining oxygen saturation greater than 92%. CARDIOVASCULAR: Regular rate and rhythm. S1 and S2 noted. No systolic or diastolic murmur auscultated. No JVD noted. No S3 or S4 noted. GASTROINTESTINAL: NG tube present to low intermittent suction with 100 mL of brown drainage. Large scarring noted to abdomen secondary to previous surgeries. No distention noted. Abdomen soft and round. Bowel sounds auscultated x 4 quadrants. INTEGUMENTARY: No cyanosis. No jaundice. No rashes noted. No cellulitis noted. EXTREMITIES: 2+ peripheral pulses. No evidence of peripheral edema. PSYCHIATRIC: Awake and alert. Patient is nonverbal which is his baseline. Results CBC & Chem 7: 01/26/18 08:02 01/26/18 08:02 Labs: Abnormal Lab Results - Last 24 Hours (Table) 01/26/18 01/26/18 01/26/18 Range/Units 06:45 08:02 08:02 Lymphocytes # 0.7 L (1.0-4.8) k/uL BUN 24 H (9-20) mg/dL Urine Protein 1+ H (Negative) Urine Ketones 4+ H (Negative) Urine Bilirubin 1+ H (Negative) Hyaline Casts 3 H (0-2) /lpf Urine Mucus Few H (None) /hpf Thrombosis Risk Factor Assmnt - Choose All That Apply Any of the Below Risk Factors Present?: No Other Risk Factors: No Other congenital or acquired thrombophilia - If yes, enter type in comment: No Thrombosis Risk Factor Assessment Level: Very Low Risk Assessment and Plan Plan: ASSESSMENT: Abdominal pain with constipation, secondary to ileus Multiple recent hospitalizations secondary to bowel obstructions History of multiple bowel obstructions with previous bowel resection 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 Appreciate recommendations and input Continue NG tube. NPO Continue IV fluid Resume home meds when appropriate GI prophylaxis: Protonix 40 mg IV push daily DVT prophylaxis: SCDs to bilateral lower extremities while in bed Monitor vital signs and address as appropriate Further recommendations pending patient's course Nurse practitioner note has been reviewed by physician. Signing provider agrees with the documented findings, assessment, and plan of care.
--- NOTE | 2018-01-26 15:51 | P.PN ---
Subjective Progress Note Date: 01/26/18 27-year-old male sitting up in bed nasal gastric tube to suction Rust color secretions in the canister abdomen soft nursing reports no stool no nausea no vomiting. Patient is nonverbal Objective - Vital Signs Vital signs: Vital Signs Temp 97.6 F 01/26/18 06:26 Pulse 74 01/26/18 06:26 Resp 16 01/26/18 06:26 BP 143/85 01/26/18 06:26 Pulse Ox 95 01/26/18 06:26 Intake & Output 01/25/18 01/26/18 01/26/18 18:59 06:59 18:59 Intake Total 0 Output Total 225 200 Balance -225 -200 Weight 58.967 kg 58.967 kg 58.967 kg Intake: Oral 0 Output: Gastric Drainage 225 Urine 200 Other: Voiding Method Toilet Toilet Toilet # Voids 1 0 1 # Bowel Movements 1 1 - Exam Physical exam 27-year-old male sitting up in bed watching TV appears in no acute distress Lungs adequate air movement bilaterally on room air Heart S1-S2 audible and regular Abdomen several well-healed scars noted soft not distended few hypoactive bowel tones noted nasal gastric tube to low intermittent suction brownish secretions noted in the canister no stool incontinent urine Extremities no edema - Labs CBC & Chem 7: 01/26/18 08:02 01/26/18 08:02 Labs: Abnormal Lab Results - Last 24 Hours (Table) 01/26/18 01/26/18 01/26/18 Range/Units 06:45 08:02 08:02 Lymphocytes # 0.7 L (1.0-4.8) k/uL BUN 24 H (9-20) mg/dL Urine Protein 1+ H (Negative) Urine Ketones 4+ H (Negative) Urine Bilirubin 1+ H (Negative) Hyaline Casts 3 H (0-2) /lpf Urine Mucus Few H (None) /hpf Assessment and Plan Assessment: Impression Present on admission abdominal pain with constipation suspect due to an ileus Developmentally delayed with cerebral palsy History of recurrent admissions for Abdominal pain due to recurrent ileus History of multiple abdominal surgeries History of esophageal constriction Plan Nasal gastric tube to be placed to suction Keep nothing by mouth for now IV fluid for hydration Resume bowel regime DVT and GI prophylaxis Further surgical recommendations pending will follow with you Repeat an abdominal x-ray in the morning The above impression and plan of care have been discussed and directed by signing physician. Inez Feng nurse practitioner acting as scribe for signing physician.
[2018-01-27] MEDS: SODIUM CHLORIDE 0.9% 1,000 ML IV SCH ×3 (02:44→18:47)
[2018-01-27] MEDS: PANTOPRAZOLE 40 MG/10 ML VIAL IVP SCH (08:06)
--- NOTE | 2018-01-27 12:03 | P.PN ---
Subjective Progress Note Date: 01/27/18 27-year-old male who presented to the emergency room on 01/25/2018 by his family for complaints of constipation as patient had not had a bowel movement in 3-4 days. Patient is developmentally delayed and he is nonverbal. The patient has been admitted multiple times to the hospital for bowel obstructions that usually resolved with NG tube and bowel rest. The patient was most recently admitted to the hospital in November 2017 for recurrent ileus. He was seen by Dr. Barnes at that time. He underwent a flexible sigmoidoscopy on 12/12/2017 which revealed normal findings. There were no strictures or narrowing present. Digital rectal examination was normal. Dr. Barnes recommended digital rectal stimulation at that time. KUB x-ray: Correlate for ileus and partial small bowel obstruction. Portion of the ileus may be colonic. Distal colonic obstruction could be considered. Abdominal x-ray: Slight improved degree of bowel dilation status post placement of an appropriately placed enteric tube, although numerous differential air fluid levels and persistent dilated loops of large and small bowel are seen. Laboratory data: WBC 13.0. Hemoglobin 16.5. Platelet count 318. Sodium 141. Potassium 4.5. BUN 21. Creatinine 0.72. Glucose 124. Calcium 10.4. Urinalysis reveals: 1+ proteinuria, 4+ ketones, 1+ bilirubin, 3 hyaline casts, few mucus The patient was admitted to the hospital under the care of Dr. Mayes. Consultations were placed to Gen. surgery. The patient was seen and examined at the bedside on rounds with Dr. Mayes. The patient is awake and alert. He is nonverbal, which is his baseline. His abdomen is soft and does not appear distended. The patient has an NG tube placed to low intermittent suction with approximately 800 mL of brown drainage. Apparently, the patient did have a liquid stool yesterday prior to insertion of NG tube. 01/27/2018 Patient seen and examined at the bedside. The patient is awake and alert. He is nonverbal, which is his baseline. His abdomen remains soft. It does not appear to be distended. The patient has an NG tube to low intermittent suction with approximately 200 mL of rust colored output. The patient has been having liquid stools overnight. He remains NPO. General surgery is following. Objective - Vital Signs Vital signs: Vital Signs Temp 97.0 F L 01/27/18 07:00 Pulse 75 06/01/18 07:00 Resp 16 01/27/18 07:00 BP 114/63 01/27/18 07:00 Pulse Ox 97 01/27/18 07:00 Intake & Output 01/26/18 01/27/18 01/27/18 18:59 06:59 18:59 Intake Total 200 Output Total 350 750 Balance -150 -750 Weight 58.967 kg Intake: Intake, IV Titration 200 Amount Sodium Chloride 0.9% 1, 200 000 ml @ 100 mls/hr IV . Q10H RADHA Rx#:[id number] Output: Gastric Drainage 350 750 Other: Voiding Method Toilet Toilet # Voids 2 4 # Bowel Movements 2 1 - Exam GENERAL: This is a 27-year-old male in no apparent distress at the time of examination. Pleasant and cooperative. HEENT: Head is atraumatic, normocephalic. Pupils are equal, round, and reactive to light. Sclerae anicteric. Conjunctivae are clear. Mucus membranes of the mouth are moist. Neck is supple. RESPIRATORY: Clear to ausculation. No wheezes, rales, or rhonchi. No use of accessory muscles. Patient maintaining oxygen saturation greater than 92% CARDIOVASCULAR: Regular rate and rhythm. S1 and S2 noted. No systolic or diastolic murmur auscultated. No JVD noted. No S3 or S4 noted. GASTROINTESTINAL: NG tube present to low intermittent suction with 200 mL of rust colored drainage. Large scarring noted to abdomen secondary to previous surgeries. No distention noted. Abdomen soft and round. Bowel sounds auscultated x 4 quadrants. INTEGUMENTARY: No cyanosis. No jaundice. No rashes noted. No cellulitis noted. EXTREMITIES: 2+ peripheral pulses. No evidence of peripheral edema. PSYCHIATRIC: Awake and alert. Patient is nonverbal which is his baseline. 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 Appreciate recommendations and input Continue NG tube. NPO Continue IV fluid Resume home meds when appropriate GI prophylaxis: Protonix 40 mg IV push daily DVT prophylaxis: SCDs to bilateral lower extremities while in bed Monitor vital signs and address as appropriate Further recommendations pending patient's course Nurse practitioner note has been reviewed by physician. Signing provider agrees with the documented findings, assessment, and plan of care.
--- NOTE | 2018-01-27 14:05 | P.PN ---
Subjective Progress Note Date: 01/27/18 27-year-old nonverbal developmentally delay male seen this morning on rounds sitting up in bed nursing reports patient did have 3 liquid stools last evening numbness morning nasal gastric tube has put out 750 over the last 12 hours brownish secretions abdomen soft nondistended no facial grimacing with palpitation to the abdominal wall Objective - Vital Signs Vital signs: Vital Signs Temp 97.0 F L 01/27/18 07:00 Pulse 75 01/27/18 08:00 Resp 16 01/27/18 08:00 BP 114/63 01/27/18 07:00 Pulse Ox 97 01/27/18 07:00 Intake & Output 01/26/18 01/27/18 01/27/18 18:59 06:59 18:59 Intake Total 200 Output Total 350 750 Balance -150 -750 Weight 58.967 kg Intake: Intake, IV Titration 200 Amount Sodium Chloride 0.9% 1, 200 000 ml @ 100 mls/hr IV . Q10H RADHA Rx#:[id number] Output: Gastric Drainage 350 750 Other: Voiding Method Toilet Toilet Toilet Diaper Incontinent # Voids 2 4 # Bowel Movements 2 1 - Exam Physical exam 27-year-old male sitting up in bed appears in no acute distress Lungs adequate air movement bilaterally on room air Heart S1-S2 audible and regular Abdomen several well-healed scars noted soft not distended few hypoactive bowel tones noted nasal gastric tube to low intermittent suction brownish secretions noted in the canister 750 out for the last 12 hours incontinently urine 3 loose stools last night Extremities no edema - Labs CBC & Chem 7: 01/26/18 08:02 01/26/18 08:02 Assessment and Plan Assessment: Impression Present on admission abdominal pain with constipation suspect due to an ileus Developmentally delayed with cerebral palsy History of recurrent admissions for Abdominal pain due to recurrent ileus History of multiple abdominal surgeries History of esophageal constriction Plan Continue the nasal gastric tube for now Keep nothing by mouth IV fluid for hydration Resume bowel regime DVT and GI prophylaxis Further surgical recommendations pending will follow with you The above impression and plan of care have been discussed and directed by signing physician. Inez Feng nurse practitioner acting as scribe for signing physician.
[2018-01-28] MEDS: SODIUM CHLORIDE 0.9% 1,000 ML IV SCH ×3 (04:55→22:30)
[2018-01-28] MEDS: PANTOPRAZOLE 40 MG/10 ML VIAL IVP SCH (09:01)
--- NOTE | 2018-01-28 11:16 | P.PN ---
Subjective Progress Note Date: 01/28/18 Patient admitted secondary to ileus and colonic obstruction due to stool. NG tube has been discontinued. He is tolerating liquids. Patient is overall nonverbal. Discussion with his nurse was performed. No bowel movement since discontinuing his NG tube. Objective - Vital Signs Vital signs: Vital Signs Temp 98.7 F 01/28/18 07:00 Pulse 91 01/28/18 07:00 Resp 20 01/28/18 07:00 BP 93/58 01/28/18 07:00 Pulse Ox 100 01/28/18 07:00 Intake & Output 01/27/18 01/28/18 01/28/18 18:59 06:59 18:59 Other: Voiding Method Toilet Toilet Toilet Diaper Diaper Diaper Incontinent Incontinent Incontinent # Voids 4 2 - Exam GENERAL: Well developed and in no acute distress. HEENT: No sclera icterus. Extraocular movements grossly intact. Moist buccal mucosa. Head is atraumatic, normocephalic. No nasal drainage. NECK: Supple without lymphadenopathy. No JV distention. CHEST: Non-labored respirations and equal bilateral excursions. CARDIOVASCULAR: Regular rate and rhythm. Palpable 2+ radial pulses. ABDOMEN: Soft, nontender. Nondistended. MUSCULOSKELETAL: No clubbing, cyanosis or edema. NEUROLOGIC: No focal or lateralizing signs. PSYCH: Nonverbal. Developmental delay. SKIN: Good skin turgor. Well perfused. - Labs CBC & Chem 7: 01/26/18 08:02 01/26/18 08:02 Assessment and Plan (1) Developmental delay, moderate Current Visit: Yes Status: Acute Code(s): R62.50 - UNSP LACK OF EXPECTED NORMAL PHYSIOL DEV IN CHILDHOOD SNOMED Code(s): 888682014 (2) Colonic obstruction Current Visit: Yes Status: Acute Code(s): K56.60 - UNSPECIFIED INTESTINAL OBSTRUCTION * DO NOT USE * SNOMED Code(s): 34635003 (3) Ileus Current Visit: No Status: Acute Code(s): K56.7 - ILEUS, UNSPECIFIED SNOMED Code(s): 191228216 (4) Nonverbal Current Visit: Yes Status: Acute Code(s): R47.01 - APHASIA SNOMED Code(s) : 129854377 Plan: 1. Continue liquid diet. 2. May start regular diet until formed bowel movement. 3. IV fluid hydration.
--- NOTE | 2018-01-28 13:04 | P.PN ---
Subjective Progress Note Date: 01/28/18 Principal diagnosis: Small bowel obstruction This is a 27-year-old developmentally disabled male patient who presented to emergency department by his family for complaints of constipation. Patient was not noted to have a bowel movement for 3 or 4 days[address] CAT scan showed evidence of small bowel obstruction and NG tube was inserted. The patient's NG tube was clamped yesterday and he has been tolerating full liquid diet. He is nonverbal but does not have any evidence of abdominal discomfort upon palpation. He has active bowel sounds. His abdomen is soft. NG tube is to be removed today per surgical services. He is awake and alert. Does make eye contact but is nonverbal and does not follow commands. Objective - Vital Signs Vital signs: Vital Signs Temp 98.7 F 01/28/18 07:00 Pulse 91 01/28/18 07:00 Resp 20 01/28/18 07:00 BP 93/58 01/28/18 07:00 Pulse Ox 100 01/28/18 07:00 Intake & Output 01/27/18 01/28/18 01/28/18 18:59 06:59 18:59 Other: Voiding Method Toilet Toilet Toilet Diaper Diaper Diaper Incontinent Incontinent Incontinent # Voids 4 2 - Constitutional General appearance: Present: average body habitus - EENT Eyes: Present: normal appearance ENT: Present: normal oropharynx - Neck Neck: Present: normal ROM - Respiratory Respiratory: bilateral: CTA - Cardiovascular Rhythm: regular - Gastrointestinal General gastrointestinal: Present: normal bowel sounds - Neurologic Neurologic Comment(s): Nonverbal - Allied health notes Allied health notes reviewed: nursing - Labs CBC & Chem 7: 01/26/18 08:02 01/26/18 08:02 Assessment and Plan Assessment: Small bowel obstruction Developmental disability History of multiple abdominal surgeries Seizure disorder Plan: Patient's NG tube is scheduled to be discontinued today per surgical services. Continue with liquid diet. Strict I&O and daily weights. Continue with IV fluids. Repeat labs in the morning and continue to follow him closely.
[2018-01-29] MEDS: PANTOPRAZOLE 40 MG TABLET PO SCH (08:40)
--- NOTE | 2018-01-29 13:51 | P.PN ---
Subjective No overnight events patient doesn't have any NG tube at this time. Objective - Vital Signs Vital signs: Vital Signs Temp 96.5 F L 01/29/18 07:00 Pulse 66 01/29/18 07:00 Resp 14 01/29/18 07:00 BP 107/66 01/29/18 07:00 Pulse Ox 96 01/29/18 07:00 Intake & Output 01/28/18 01/29/18 01/29/18 18:59 06:59 18:59 Output Total 200 Balance -200 Output: Urine 200 Other: Voiding Method Toilet Toilet Diaper Diaper Incontinent Incontinent # Voids 3 3 # Bowel Movements 0 - Exam - Constitutional General appearance: Present: average body habitus patient is non-verbal - EENT Eyes: Present: normal appearance ENT: Present: normal oropharynx - Neck Neck: Present: normal ROM - Respiratory Respiratory: bilateral: CTA - Cardiovascular Rhythm: regular - Gastrointestinal General gastrointestinal: Present: normal bowel sounds - Neurologic Neurologic Comment(s): Nonverbal - Allied health notes Allied health notes reviewed: nursing - Labs CBC & Chem 7: 01/26/18 08:02 01/26/18 08:02 Assessment and Plan Plan: -Ileus: Multiple episodes patient is able to tolerate liquid diet at this time. - Developmental disability -Multiple abdominal surgeries in the past -Seizure disorder Continue supportive measures advance her diet as tolerated
--- NOTE | 2018-01-29 13:52 | P.PN ---
Subjective Progress Note Date: 01/29/18 Patient admitted secondary to ileus and colonic obstruction due to stool. He is tolerating full liquids. Bowel movements have been very small the size of M& Ms. No large bowel movements yet. He is ambulating in the hallways. Objective - Vital Signs Vital signs: Vital Signs Temp 96.5 F L 01/29/18 07:00 Pulse 66 01/29/18 07:00 Resp 14 01/29/18 07:00 BP 107/66 01/29/18 07:00 Pulse Ox 96 01/29/18 07:00 Intake & Output 01/28/18 01/29/18 01/29/18 18:59 06:59 18:59 Output Total 200 Balance -200 Output: Urine 200 Other: Voiding Method Toilet Toilet Diaper Diaper Incontinent Incontinent # Voids 3 3 # Bowel Movements 0 - Exam GENERAL: Well developed and in no acute distress. HEENT: No sclera icterus. Extraocular movements grossly intact. Moist buccal mucosa. Head is atraumatic, normocephalic. No nasal drainage. NECK: Supple without lymphadenopathy. No JV distention. CHEST: Non-labored respirations and equal bilateral excursions. CARDIOVASCULAR: Regular rate and rhythm. Palpable 2+ radial pulses. ABDOMEN: Soft, nontender. Nondistended. MUSCULOSKELETAL: No clubbing, cyanosis or edema. NEUROLOGIC: No focal or lateralizing signs. PSYCH: Nonverbal. Developmental delay. SKIN: Good skin turgor. Well perfused. - Labs CBC & Chem 7: 01/26/18 08:02 01/26/18 08:02 Assessment and Plan (1) Developmental delay, moderate Current Visit: Yes Status: Acute Code(s): R62.50 - UNSP LACK OF EXPECTED NORMAL PHYSIOL DEV IN CHILDHOOD SNOMED Code(s): 378348576 (2) Colonic obstruction Current Visit: Yes Status: Acute Code(s): K56.60 - UNSPECIFIED INTESTINAL OBSTRUCTION * DO NOT USE * SNOMED Code(s): 97514609 (3) Ileus Current Visit: No Status: Acute Code(s): K56.7 - ILEUS, UNSPECIFIED SNOMED Code(s): 546323197 (4) Nonverbal Current Visit: Yes Status: Acute Code(s): R47.01 - APHASIA SNOMED Code(s) : 318550850 Plan: 1. Await large bowel movement prior to starting of regular diet. 2. Ambulate four times daily recommended
[2018-01-29] MEDS: SODIUM CHLORIDE 0.9% 1,000 ML IV SCH ×2 (17:32→20:58)
[2018-01-30] MEDS: SODIUM CHLORIDE 0.9% 1,000 ML IV SCH (05:39)
--- NOTE | 2018-01-30 09:03 | P.PN ---
Subjective Progress Note Date: 01/30/18 27-year-old male who presented to the emergency room on 01/25/2018 by his family for complaints of constipation as patient had not had a bowel movement in 3-4 days. Patient is developmentally delayed and he is nonverbal. The patient has been admitted multiple times to the hospital for bowel obstructions that usually resolved with NG tube and bowel rest. The patient was most recently admitted to the hospital in November 2017 for recurrent ileus. He was seen by Dr. Barnes at that time. He underwent a flexible sigmoidoscopy on 12/12/2017 which revealed normal findings. There were no strictures or narrowing present. Digital rectal examination was normal. Dr. Barnes recommended digital rectal stimulation at that time. KUB x-ray: Correlate for ileus and partial small bowel obstruction. Portion of the ileus may be colonic. Distal colonic obstruction could be considered. Abdominal x-ray: Slight improved degree of bowel dilation status post placement of an appropriately placed enteric tube, although numerous differential air fluid levels and persistent dilated loops of large and small bowel are seen. Laboratory data: WBC 13.0. Hemoglobin 16.5. Platelet count 318. Sodium 141. Potassium 4.5. BUN 21. Creatinine 0.72. Glucose 124. Calcium 10.4. Urinalysis reveals: 1+ proteinuria, 4+ ketones, 1+ bilirubin, 3 hyaline casts, few mucus The patient was admitted to the hospital under the care of Dr. Mayes. Consultations were placed to Gen. surgery. The patient was seen and examined at the bedside on rounds with Dr. Mayes. The patient is awake and alert. He is nonverbal, which is his baseline. His abdomen is soft and does not appear distended. The patient has an NG tube placed to low intermittent suction with approximately 800 mL of brown drainage. Apparently, the patient did have a liquid stool yesterday prior to insertion of NG tube. 01/27/2018 Patient seen and examined at the bedside. The patient is awake and alert. He is nonverbal, which is his baseline. His abdomen remains soft. It does not appear to be distended. The patient has an NG tube to low intermittent suction with approximately 200 mL of rust colored output. The patient has been having liquid stools overnight. He remains NPO. General surgery is following. 01/30/2018 Patient seen and examined at the bedside on rounds with Dr. Mayes. Patient is very sleepy this morning. Nursing reports the patient was awake all night and did not sleep. He is nonverbal which is his baseline. NG tube was removed over the weekend. Patient has had two medium sized bowel movements overnight. Tolerating full liquids without nausea or vomiting. Objective - Vital Signs Vital signs: Vital Signs Temp 98.4 F 01/29/18 23:00 Pulse 71 01/29/18 23:00 Resp 18 01/29/18 23:00 BP 130/75 01/29/18 23:00 Pulse Ox 98 01/29/18 23:00 Intake & Output 01/29/18 01/30/18 01/30/18 18:59 06:59 18:59 Intake Total 1600 Balance 1600 Intake: Intake, IV Titration 800 Amount Sodium Chloride 0.9% 1, 800 000 ml @ 100 mls/hr IV . Q10H [facility] Rx#:[id number] Oral 800 Other: # Voids 2 2 # Bowel Movements 1 1 - Exam GENERAL: This is a 27-year-old male in no apparent distress at the time of examination. Pleasant and cooperative. HEENT: Head is atraumatic, normocephalic. Pupils are equal, round, and reactive to light. Sclerae anicteric. Conjunctivae are clear. Mucus membranes of the mouth are moist. Neck is supple. RESPIRATORY: Clear to ausculation. No wheezes, rales, or rhonchi. No use of accessory muscles. Patient maintaining oxygen saturation greater than 92% CARDIOVASCULAR: Regular rate and rhythm. S1 and S2 noted. No systolic or diastolic murmur auscultated. No JVD noted. No S3 or S4 noted. GASTROINTESTINAL: Large scarring noted to abdomen secondary to previous surgeries. No distention noted. Abdomen soft and round. Bowel sounds auscultated x 4 quadrants. INTEGUMENTARY: No cyanosis. No jaundice. No rashes noted. No cellulitis noted. EXTREMITIES: 2+ peripheral pulses. No evidence of peripheral edema. PSYCHIATRIC: Patient is sleepy this morning. Patient is nonverbal which is his baseline. 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 Appreciate recommendations and input Advance diet to soft foods. Advance as tolerated Resume home meds DC IV fluids GI prophylaxis: Protonix 40 mg PO daily DVT prophylaxis: SCDs to bilateral lower extremities while in bed Monitor vital signs and address as appropriate Further recommendations pending patient's course Possible discharge home tomorrow if patient remains stable Nurse practitioner note has been reviewed by physician. Signing provider agrees with the documented findings, assessment, and plan of care.
[2018-01-30] MEDS: PANTOPRAZOLE 40 MG TABLET PO SCH (10:37)
--- NOTE | 2018-01-30 12:45 | P.PN ---
Subjective Progress Note Date: 01/30/18 27-year-old male developmentally delayed nonverbal sitting up in bed nursing reports patient has had several bowel movements is not vomiting has tolerated a diet low fiber is incontinent urine abdomen is soft no facial grimacing with palpitation to the abdominal wall Patient is being followed by surgical service throughout the hospitalization for abdominal pain constipation felt to be due to an ileus which is resolving. Patient has a history of multiple bowel obstructions requiring hospitalization primary surgeon is Dr. León Objective - Vital Signs Vital signs: Vital Signs Temp 97.0 F L 01/30/18 07:00 Pulse 88 01/30/18 07:00 Resp 16 01/30/18 07:00 BP 110/58 01/30/18 07:00 Pulse Ox 96 01/30/18 07:00 Intake & Output 01/29/18 01/30/18 01/30/18 18:59 06:59 18:59 Intake Total 1600 Balance 1600 Intake: Intake, IV Titration 800 Amount Sodium Chloride 0.9% 1, 800 000 ml @ 100 mls/hr IV . Q10H [facility] Rx#:[id number] Oral 800 Other: # Voids 2 2 # Bowel Movements 1 1 - Exam Physical exam 27-year-old male sitting up in bed appears in no acute distress Lungs adequate air movement bilaterally on room air Heart S1-S2 audible and regular Abdomen several well-healed scars noted soft not distended active bowel tones noted nursing reports patient has had several medium brown stools. Tolerating a low fiber diet. No nausea no vomiting. Extremities no edema - Labs CBC & Chem 7: 01/26/18 08:02 01/26/18 08:02 Assessment and Plan Assessment: Impression Present on admission abdominal pain with constipation suspect due to an ileus resolved Developmentally delayed with cerebral palsy History of recurrent admissions for Abdominal pain due to recurrent ileus History of multiple abdominal surgeries History of esophageal constriction Plan Agree with a low fiber diet if tolerated attending will prep for discharge in the morning No further surgical recommendations we'll sign off re-eval as needed Resume bowel regime DVT and GI prophylaxis The above impression and plan of care have been discussed and directed by signing physician. Inez Feng nurse practitioner acting as scribe for signing physician.
[2018-01-30] MEDS: DOCUSATE 100 MG CAP PO SCH (22:13)
[2018-01-31 05:56] VITALS: BP 102/64; PULSE 60; RESP 16; TEMP 97.1
[2018-01-31] MEDS: DOCUSATE 100 MG CAP PO SCH ×2 (08:26→09:30)
[2018-01-31] MEDS: PANTOPRAZOLE 40 MG TABLET PO SCH ×2 (08:27→09:30)
[2018-01-31] MEDS: PSYLLIUM HUSK 100% 6 GM PACKET PO SCH ×2 (08:34→09:31)
--- NOTE | 2018-01-31 10:36 | P.DS ---
Providers Date of admission: 01/25/18 10:29 Expected date of discharge: 01/31/18 Attending physician: Jon Mayes Consults: 01/25/18 10:34 Consult Physician Stat Consulting Provider: Hans Whyte Consult Reason/Comments: Colonic obstruction Do you want consulting provider notified?: Yes Primary care physician: Jon Mayes [facility] Course: 27-year-old male who presented to the emergency room on 01/25/2018 by his family for complaints of constipation as patient had not had a bowel movement in 3-4 days. Patient is developmentally delayed and he is nonverbal. The patient has been admitted multiple times to the hospital for bowel obstructions that usually resolved with NG tube and bowel rest. The patient was most recently admitted to the hospital in November 2017 for recurrent ileus. He was seen by Dr. Barnes at that time. He underwent a flexible sigmoidoscopy on 12/12/2017 which revealed normal findings. There were no strictures or narrowing present. Digital rectal examination was normal. Dr. Barnes recommended digital rectal stimulation at that time. KUB x-ray: Correlate for ileus and partial small bowel obstruction. Portion of the ileus may be colonic. Distal colonic obstruction could be considered. Abdominal x-ray: Slight improved degree of bowel dilation status post placement of an appropriately placed enteric tube, although numerous differential air fluid levels and persistent dilated loops of large and small bowel are seen. Laboratory data: WBC 13.0. Hemoglobin 16.5. Platelet count 318. Sodium 141. Potassium 4.5. BUN 21. Creatinine 0.72. Glucose 124. Calcium 10.4. Urinalysis reveals: 1+ proteinuria, 4+ ketones, 1+ bilirubin, 3 hyaline casts, few mucus An NG tube was inserted to low intermittent suction for a few days. The patient 's NG tube was eventually discontinued. The patient was started on clear liquids and advance as tolerated. He has had multiple bowel movements. He is tolerating oral intake without nausea or vomiting. He was deemed stable for discharge per Dr. Mayes. He is to follow up on an outpatient basis. 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 Signing provider agrees with the documented findings, assessment, and plan of care. Patient Condition at Discharge: Stable Plan - Discharge Summary Discharge Rx Participant: No New Discharge Prescriptions: New Docusate [Colace] 100 mg PO BID #60 cap Continue Psyllium Husk (with Sugar) [Metamucil Powder] 6 gm PO DAILY Discharge Medication List Psyllium Husk (with Sugar) [Metamucil Powder] 6 gm PO DAILY 05/10/17 [History] Docusate [Colace] 100 mg PO BID #60 cap 01/31/18 [Rx] Follow up Appointment(s)/Referral(s): Trae León MD [Medical Doctor] - 02/22/18 2:20 pm Jon Mayes DO [Primary Care Provider] - 02/06/18 (Office unavailable, please call for appointment. ) Patient Instructions/Handouts: Ileus (DC) Activity/Diet/Wound Care/Special Instructions: General surgery recommends digital rectal stimulation to help with bowel movements Drink 8oz of water daily. Low fiber diet with ensure three times daily. Assist with meals. Ambulate often, up with assist, fall precautions.
== END 2018-01-31 12:14 | disposition home or self-care (01) | DRG 389 ==
LOC: EC 07:23 → 4MS4W 10:29
PROVIDERS: ADMIT Family Medicine; ATTEND Family Medicine
DX: K56.7 Ileus, unspecified (principal); R47.01 Aphasia; G80.9 Cerebral palsy, unspecified; R62.59 Other lack of expected normal physiological development in childhood; G40.909 Epilepsy, unspecified, not intractable, without status epilepticus; Z79.899 Other long term (current) drug therapy; Z80.3 Family history of malignant neoplasm of breast; Z82.0 Family history of epilepsy and other diseases of the nervous system; Z90.49 Acquired absence of other specified parts of digestive tract
CPT/HCPCS: 36415; 74018; 74019; 80053; 81001; 83690; 85025; 99285

== ENCOUNTER 2018-04-04 06:52 | Inpatient (IN) | payer MEDICARE, OTHER ==
[2018-04-04] MEDS ORDERED: SODIUM CHLORIDE 0.9% 1,000 ML IV STA ×2 (07:14)
--- NOTE | 2018-04-04 07:16 | ED ---
Abdominal Pain HPI <JavierWing - Last Filed: 04/04/18 09:12> - General Source: RN notes reviewed, old records reviewed, Caregiver Mode of arrival: ambulatory Limitations: physical limitation <Yaritza Hudson - Last Filed: 04/04/18 09:36> - General Chief Complaint: Abdominal Pain Stated Complaint: poss bowel obstruction Time Seen by Provider: 04/04/18 07:05 - History of Present Illness Initial Comments: This Patient is a 27-year-old male with a history of cerebral palsy, and history of multiple bowel obstructions presents emergency Department with his [id number]. Today they're concerned for another bowel obstruction. Patient did not eat anything yesterday evening as well as today. He's been tired and lethargic. He [id number] reports that his abdomen seems quite full and distended. Patient is nonverbal. Patient has not had anything to eat or drink today. They do report he said history of surgery and esophagus where he is not able to regurgitate since would with bowel obstructions. Patient has had normal urination. They do report that his last stool was a somewhat watery stool yesterday afternoon. (Yaritza Hudson) - Related Data Home Medications Medication Instructions Recorded Confirmed Lactulose 20 gm PO AC-SUPPER 04/04/18 04/04/18 Allergies Allergy/AdvReac Type Severity Reaction Status Date / Time No Known Allergies Allergy Verified 04/04/18 07:19 Review of Systems ROS Other: All systems not noted in ROS Statement are negative. <JavierWing - Last Filed: 04/04/18 09:12> ROS Other: All systems not noted in ROS Statement are negative. <Yaritza Hudson - Last Filed: 04/04/18 09:36> ROS Statement: Those systems with pertinent positive or pertinent negative responses have been documented in the HPI. Past Medical History Past Medical History: Seizure Disorder Additional Past Medical History / Comment(s): SEVERLY PREMATURE AT RESULTING IN CEREBRAL PALSY AND MENTAL RETARDATION, PT DOES WEAR BRIEFS/ occasionally incontinent of urine and stool-family toilets pt about q 2 hours, aphasic, will nod head yes and no and knows small amount of sign language, NECROTIZING ENTEROCOLITIS WHEN YOUNGER, HAS HAD HX OF CONSTIPATION, BOWEL OBSTRUCTIONS(ILEUS), SEIZURE DISORDER-last seizure yrs ago -nOT CURENTLY ON MEDS , PAST ASPIRATION- ESOPHAGUS TOO LARGE-HAD PROCEDURE TO MAKE SMALLER, SO PT IS NOT ABLE TO VOMIT. 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 Father Family Medical History: Seizure Disorder Additional Family Medical History / Comment(s): Father is 60 rs old. <Yaritza Hudson - Last Filed: 04/04/18 09:36> General Exam <Wing Herrera - Last Filed: 04/04/18 09:12> Limitations: physical limitation General appearance: alert, in no apparent distress Head exam: Present: atraumatic, normocephalic, normal inspection Eye exam: Present: normal appearance, PERRL, EOMI. Absent: scleral icterus, conjunctival injection, periorbital swelling ENT exam: Present: normal exam, mucous membranes moist Neck exam: Present: normal inspection. Absent: tenderness, meningismus, lymphadenopathy Respiratory exam: Present: normal lung sounds bilaterally. Absent: respiratory distress, wheezes, rales, rhonchi, stridor Cardiovascular Exam: Present: normal rhythm, tachycardia (tachycardic in 120 bpm.), normal heart sounds. Absent: regular rate, systolic murmur, diastolic murmur, rubs, gallop, clicks GI/Abdominal exam: Present: soft, distended, normal bowel sounds, other ( Evidence of multiple scars over the abdomen. ). Absent: tenderness, guarding, rebound, rigid Extremities exam: Present: normal inspection, full ROM, normal capillary refill. Absent: tenderness, pedal edema, joint swelling, calf tenderness Back exam: Present: normal inspection Neurological exam: Present: alert, oriented X3, CN II-XII intact Psychiatric exam: Present: normal affect, normal mood Skin exam: Present: warm, dry, intact, normal color. Absent: rash <Yaritza Hudson - Last Filed: 04/04/18 09:36> - General Exam Comments Initial Comments: This is a 27-year-old male. Nonverbal. (Yaritza Hudson) Course <Wing Herrera - Last Filed: 04/04/18 09:12> <TristanYaritza treviño - Last Filed: 04/04/18 09:36> Vital Signs 04/04/18 07:01 Temperature 97.8 F Pulse Rate 122 H Respiratory 24 Rate Blood Pressure 132/84 O2 Sat by Pulse 97 Oximetry - Reevaluation(s) Reevaluation #1: 04/04/18 09:12 PA supervision: I personally saw and examined the patient. I have reviewed and agree with the PAs findings including all diagnostic interpretation treatment plans as written unless otherwise stated. I did discuss the case with the patient and with his family member who is present. Patient's case will be discussed with Dr. Mayes. (Wing Herrera) Medical Decision Making - Lab Data Result diagrams: 04/04/18 07:50 04/04/18 07:50 <Wing Herrera - Last Filed: 04/04/18 09:12> - Lab Data Result diagrams: 04/04/18 07:50 04/04/18 07:50 - Radiology Data Radiology results: report reviewed <Yaritza Hudson - Last Filed: 04/04/18 09:36> - Medical Decision Making This is a 27-year-old male presents emergency department today with brother-in- law with chief complaint of bowel obstruction. He did have a bowel sounds are family reports he is quite distended. He is not able to vomit. He is somewhat tachycardic. Family reports he has not ate or drank anything in the past day. Patient started on IV fluids labwork shows evidence of mild leukocytosis of 14, 000. Abdominal x-ray does show distention throughout the colon concerning for pelvic injection. He did have a bowel movement, loose watery yesterday afternoon. At this time NG tube will be inserted, we'll complete a computed tomography scan of the abdomen and pelvis with contrast. We'll admit the Patient to Dr. Mayes consult to Patient surgeon Dr. León. (Yaritza Hudson) - Lab Data Lab Results 04/04/18 04/04/18 04/04/18 Range/Units 07:50 07:50 07:50 WBC 14.0 H (3.8-10.6) k/uL RBC 5.96 H (4.30-5.90) m/uL Hgb 16.6 (13.0-17.5) gm/dL Hct 48.4 (39.0-53.0) % MCV 81.3 (80.0-100.0) fL MCH 27.9 (25.0-35.0) pg MCHC 34.4 (31.0-37.0) g/dL RDW 13.0 (11.5-15.5) % Plt Count 281 (150-450) k/uL Neutrophils % (Manual) 76 % Band Neutrophils % 2 % Lymphocytes % (Manual) 10 % Monocytes % (Manual) 12 % Neutrophils # (Manual) 10.90 H (1.3-7.7) k/uL Lymphocytes # (Manual) 1.40 (1.0-4.8) k/uL Monocytes # (Manual) 1.68 H (0-1.0) k/uL Nucleated RBCs 0 (0-0) /100 WBC Manual Slide Review Performed PT 9.9 (9.0-12.0) sec INR 1.0 (<1.2) APTT 24.9 (22.0-30.0) sec Sodium 139 (137-145) mmol/L Potassium 4.3 (3.5-5.1) mmol/L Chloride 100 (98-107) mmol/L Carbon Dioxide 23 (22-30) mmol/L Anion Gap 16 mmol/L BUN 21 H (9-20) mg/dL Creatinine 0.73 (0.66-1.25) mg/dL Est GFR (CKD-EPI)AfAm >90 (>60 ml/min/1.73 sqM) Est GFR (CKD-EPI)NonAf >90 (>60 ml/min/1.73 sqM) Glucose 135 H (74-99) mg/dL Calcium 10.1 (8.4-10.2) mg/dL Total Bilirubin 0.7 (0.2-1.3) mg/dL AST 29 (17-59) U/L ALT 28 (21-72) U/L Alkaline Phosphatase 54 (38-126) U/L Total Protein 8.6 H (6.3-8.2) g/dL Albumin 5.4 H (3.5-5.0) g/dL Amylase 55 (30-110) U/L Lipase 34 (23-300) U/L - Radiology Data S x-ray shows the stomach and colon show distention cardiomegaly. Probable basilar atelectasis. Clinically to exclude pneumonia. Follow-up recommended. KUB shows states to correlate to exclude bowel obstruction. (Yaritza Hudson) Disposition <Wing Herrera - Last Filed: 04/04/18 09:12> Is patient prescribed a controlled substance at d/c from ED?: No Time of Disposition: 08:59 <Yaritza Hudson - Last Filed: 04/04/18 09:36> Clinical Impression: Small bowel obstruction, Leukocytosis, Abdominal pain, Developmental delay, moderate Disposition: ADMITTED IP TO THIS HOSP Condition: Stable
[2018-04-04] MEDS ORDERED: MORPHINE SULFATE 2 MG/ML SYRINGE IVP ONE (07:52)
[2018-04-04] MEDS ORDERED: KETOROLAC 30 MG/ML 1 ML VIAL IVP STA (07:52)
[2018-04-04 08:18] LABS: ALT 28 U/L (21-72); AST 29 U/L (17-59); Albumin 5.4 g/dL (3.5-5.0); Alkaline Phosphatase 54 U/L (38-126); Amylase 55 U/L (30-110); Anion Gap 16 mmol/L; Blood Urea Nitrogen 21 mg/dL (9-20); Calcium 10.1 mg/dL (8.4-10.2); Carbon Dioxide 23 mmol/L (22-30); Chloride 100 mmol/L (98-107); Glucose 135 mg/dL (74-99); Lipase 34 U/L (23-300); Potassium 4.3 mmol/L (3.5-5.1); Sodium 139 mmol/L (137-145); Total Bilirubin 0.7 mg/dL (0.2-1.3); Total Protein 8.6 g/dL (6.3-8.2)
[2018-04-04 08:23] LABS: Partial Thromboplastin Time 24.9 sec (22.0-30.0); Prothrombin Time 9.9 sec (9.0-12.0)
[2018-04-04 08:32] LABS: HCT 48.4 % (39.0-53.0); HGB 16.6 gm/dL (13.0-17.5); MCH 27.9 pg (25.0-35.0); MCHC 34.4 g/dL (31.0-37.0); MCV 81.3 fL (80.0-100.0); Mean Platelet Volume 6.9; Platelet Count 281 k/uL (150-450); RBC 5.96 m/uL (4.30-5.90)
[2018-04-04 08:51] LABS: Band Neutrophils % 2 %; Monocytes # (M) 1.68 k/uL (0-1.0); Neutrophils % (M) 76 %; Nucleated Red Blood Cells 0 /100 WBC (0-0); Total Cells Counted 100
[2018-04-04] MEDS ORDERED: HYDROmorphone 1 MG/ML 1 ML SYRINGE IVP PRN (09:00)
[2018-04-04] MEDS ORDERED: ONDANSETRON 4 MG/2 ML VIAL IVP PRN (09:00)
[2018-04-04] MEDS ORDERED: NALOXONE 0.4 MG/ML 1 ML VIAL IV PRN (09:00)
[2018-04-04] MEDS ORDERED: KETOROLAC 30 MG/ML 1 ML VIAL IVP PRN (09:00)
[2018-04-04] MEDS ORDERED: MORPHINE SULFATE 4 MG/ML SYRINGE IV PRN (09:00)
--- NOTE | 2018-04-04 09:07 | XR ---
EXAMINATION TYPE: XR chest 2V DATE OF EXAM: 04/04/2018 COMPARISON: Prior chest 12/09/2017 and abdomen film 04/04/2018 HISTORY: Abdominal pain, abnormal chest x-ray TECHNIQUE: Frontal and lateral views of the chest are obtained. FINDINGS: There is been interval removal of the NG tube. Patient is rotated. There is a spinal curva ture. No pneumothorax or pleural effusion. Heart is enlarged. Appearance may be accentuated by rotati on. Distended loops of bowel, stomach noted beneath the hemidiaphragm. Question some patchy basilar d ensity on the right. IMPRESSION: Stomach and colon shows distention. Cardiomegaly. Probable basilar atelectasis, correlat e to exclude pneumonia. Follow-up recommended.
--- NOTE | 2018-04-04 09:09 | XR ---
Abdomen HISTORY: Abdomen pain Frontal view of the abdomen submitted on 2 images. Exam correlated prior exam 01/25/2018 There are distended loops of small and large bowel are present. No evident pneumoperitoneum. Stomach is somewhat air distended. IMPRESSION: Correlate to exclude bowel obstruction.
--- NOTE | 2018-04-04 10:02 | CT ---
EXAMINATION TYPE: CT abdomen pelvis w con DATE OF EXAM: 04/04/2018 COMPARISON: 12/09/2017 HISTORY: 87-year-old male small bowel obstruction. TECHNIQUE: Contiguous axial scanning of the abdomen and pelvis following administration of 100 ml Iso sue 300 IV contrast. Delayed images through the kidneys and coronal/sagittal reconstructions perform ed. CT DLP: 1005 mGycm Automated exposure control for dose reduction was used. FINDINGS: Heart upper limits of normal in size without pericardial effusion. Some strandy atelectasis in the lo wer lungs without pleural effusion. Stable lobulated cyst posterior right liver lobe measuring 2.1 cm. Portal venous system is patent. No biliary ductal dilatation. Cholecystectomy clips. Adrenal glands, kidneys, spleen, and pancreas appear within normal limits. Marked diffuse small bowel dilatation measuring up to 5 cm in some places.. There is prominent liquid stool in the rectum which is distended up to 6.8 cm wide. Very difficult to follow the bowel loops. There are scattered areas of segmental narrowing and dilatation of the small bowel, for example, axia l image 57 and 35. No obvious abdominal lymphadenopathy. No definite pneumatosis. No free air is seen. No free fluid. Bladder is urine distended. Surgical material along the inguinal canals. Bones: No osseous destructive process. IMPRESSION: 1. MODERATE TO SEVERE DILATATION OF MULTIPLE SMALL BOWEL LOOPS THROUGHOUT THE ABDOMEN MEASURING UP TO 5 CM. SIMILAR TO BUT NOT QUITE SEVERE 12/09/2017. SEVERAL SEGMENTAL AREAS OF NARROWING AND DILA TATION ARE PRESENT ON THE RIGHT SIDE OF THE ABDOMEN. THE DEGREE OF DILATATION MAKES IT DIFFICULT TO F OLLOW THE BOWEL LOOPS. THE RECTUM IS DISTENDED WITH STOOL UP TO 6.8 CM WIDE. BOTH SMALL BOWEL OBSTRUC TION AND MARKED DIFFUSE ILEUS ARE IN THE DIFFERENTIAL. 2. NO FREE AIR OR FREE FLUID.
[2018-04-04] MEDS: SODIUM CHLORIDE 0.9% 1,000 ML IV SCH ×2 (11:52→18:04)
[2018-04-04] MEDS: PANTOPRAZOLE 40 MG/10 ML VIAL IV SCH (11:52)
--- NOTE | 2018-04-04 17:49 | P.GSCN ---
History of Present Illness Consult date: 04/04/18 Reason for Consult: Abdominal distention History of present illness: Patient will monitor service. The patient has a history of recurrent ileus/ constipation. Last hospitalization in December. In November of this year the patient had a CAT scan suggesting a possible narrowing in the rectum. For that reason a flexible sigmoidoscopy took place without bowel preparation. No obstruction was seen. The patient is felt to possibly have some degree of adult Hirschsprung's. The patient typically responds well to rectal stimulation as the films usually suggests presence of the bowel dilation all the way down to the anal region. He did have some watery stool yesterday. The patient was not eating yesterday or today. He has been tired and more lethargic. This is very typical symptoms for his presentation. 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 Father Family Medical History: Seizure Disorder Additional Family Medical History / Comment(s): Father is 60 rs old. Medications and Allergies Home Medications Medication Instructions Recorded Confirmed Type Lactulose 20 gm PO AC-SUPPER 04/04/18 04/04/18 History Allergies Allergy/AdvReac Type Severity Reaction Status Date / Time No Known Allergies Allergy Verified 04/04/18 07:19 Surgical - Exam Vital Signs Temp Pulse Resp BP Pulse Ox 97.8 F 122 H 24 132/84 97 04/04/18 07:01 04/04/18 07:01 04/04/18 07:01 04/04/18 07:01 04/04/18 07:01 Physical exam: General: Well-developed, well-nourished HEENT: Normocephalic, sclerae nonicteric Abdomen: Mild distention, nontender Extremities: No edema Neuro: Alert Results - Labs 04/04/18 07:50 04/04/18 07:50 Abnormal Lab Results - Last 24 Hours (Table) 04/04/18 04/04/18 Range/Units 07:50 07:50 WBC 14.0 H (3.8-10.6) k/uL RBC 5.96 H (4.30-5.90) m/uL Neutrophils # (Manual) 10.90 H (1.3-7.7) k/uL Monocytes # (Manual) 1.68 H (0-1.0) k/uL BUN 21 H (9-20) mg/dL Glucose 135 H (74-99) mg/dL Total Protein 8.6 H (6.3-8.2) g/dL Albumin 5.4 H (3.5-5.0) g/dL Diabetes panel 04/04/18 Range/Units 07:50 Sodium 139 (137-145) mmol/L Potassium 4.3 (3.5-5.1) mmol/L Chloride 100 (98-107) mmol/L Carbon Dioxide 23 (22-30) mmol/L BUN 21 H (9-20) mg/dL Creatinine 0.73 (0.66-1.25) mg/dL Glucose 135 H (74-99) mg/dL Calcium 10.1 (8.4-10.2) mg/dL AST 29 (17-59) U/L ALT 28 (21-72) U/L Alkaline Phosphatase 54 (38-126) U/L Total Protein 8.6 H (6.3-8.2) g/dL Albumin 5.4 H (3.5-5.0) g/dL Calcium panel 04/04/18 Range/Units 07:50 Calcium 10.1 (8.4-10.2) mg/dL Albumin 5.4 H (3.5-5.0) g/dL Pituitary panel 04/04/18 Range/Units 07:50 Sodium 139 (137-145) mmol/L Potassium 4.3 (3.5-5.1) mmol/L Chloride 100 (98-107) mmol/L Carbon Dioxide 23 (22-30) mmol/L BUN 21 H (9-20) mg/dL Creatinine 0.73 (0.66-1.25) mg/dL Glucose 135 H (74-99) mg/dL Calcium 10.1 (8.4-10.2) mg/dL Adrenal panel 04/04/18 Range/Units 07:50 Sodium 139 (137-145) mmol/L Potassium 4.3 (3.5-5.1) mmol/L Chloride 100 (98-107) mmol/L Carbon Dioxide 23 (22-30) mmol/L BUN 21 H (9-20) mg/dL Creatinine 0.73 (0.66-1.25) mg/dL Glucose 135 H (74-99) mg/dL Calcium 10.1 (8.4-10.2) mg/dL Total Bilirubin 0.7 (0.2-1.3) mg/dL AST 29 (17-59) U/L ALT 28 (21-72) U/L Alkaline Phosphatase 54 (38-126) U/L Total Protein 8.6 H (6.3-8.2) g/dL Albumin 5.4 H (3.5-5.0) g/dL Assessment and Plan (1) Ileus Narrative/Plan: Will add Dulcolax suppositories to be given daily. Usually with rectal stimulation the patient's bowel issues resolve. I have discussed this previously with the family regarding doing this at home but I don't believe that was ever fully adopted. Keep nothing by mouth with nasogastric tube to suction for now. We'll follow closely with you. Current Visit: No Status: Acute Code(s): K56.7 - ILEUS, UNSPECIFIED SNOMED Code(s): 309326888
[2018-04-04] MEDS: LACTULOSE 20 GM/30 ML CUP PO SCH (18:04)
[2018-04-04] MEDS: BISACODYL 10 MG SUPP RECTAL SCH (19:06)
[2018-04-05] MEDS: SODIUM CHLORIDE 0.9% 1,000 ML IV SCH ×3 (06:29→18:04)
[2018-04-05 06:35] LABS: Appearance,Urine Clear (Clear); Bilirubin,Urine Negative (Negative); Blood,Urine Negative (Negative); Color,Urine Yellow; Glucose,Urine (UA) Negative (Negative); Hyaline Casts,Urine 1 /lpf (0-2); Ketones,Urine 3+ (Negative); Leukocyte Esterase,Urine Negative (Negative); Mucus,Urine Rare /hpf; Nitrite,Urine Negative (Negative); Protein,Urine 1+ (Negative); RBC,Urine 1 /hpf (0-5); Urobilinogen,Urine <2.0 mg/dL (<2.0); WBC,Urine <1 /hpf (0-5)
[2018-04-05] MEDS: PANTOPRAZOLE 40 MG/10 ML VIAL IV SCH (09:47)
--- NOTE | 2018-04-05 10:14 | P.PN ---
Subjective Progress Note Date: 04/05/18 Principal diagnosis: Ileus Patient pulled out his nasogastric tube yesterday more than once. He remains afebrile with stable vital signs. No labs today. He did have 4 bowel movements per the nursing staff last night. Objective - Vital Signs Vital signs: Vital Signs Temp 98.4 F 04/05/18 07:00 Pulse 88 04/05/18 07:00 Resp 16 04/05/18 07:00 BP 103/62 04/05/18 07:00 Pulse Ox 97 04/05/18 07:00 Intake & Output 04/04/18 04/05/18 04/05/18 18:59 06:59 18:59 Intake Total 0 Output Total 8 Balance -8 Weight 65.771 kg Intake: Oral 0 Output: Stool 4 Urine/Stool Mix 4 Other: Voiding Method Toilet Toilet Diaper Diaper # Voids 2 # Bowel Movements 4 - Exam Patient still appears somewhat uncomfortable. Abdomen soft, mild distention, mild diffuse tenderness - Labs CBC & Chem 7: 04/04/18 07:50 04/04/18 07:50 Labs: Abnormal Lab Results - Last 24 Hours (Table) 04/05/18 Range/Units 06:15 Urine Protein 1+ H (Negative) Urine Ketones 3+ H (Negative) Urine WBC Clumps Rare H (None) /hpf Urine Mucus Rare H (None) /hpf Assessment and Plan (1) Ileus Narrative/Plan: Keep nothing by mouth for now. Repeat labs and x-rays today. Current Visit: No Status: Acute Code(s): K56.7 - ILEUS, UNSPECIFIED SNOMED Code(s): 686391473
[2018-04-05] MEDS: BISACODYL 10 MG SUPP RECTAL SCH (10:22)
[2018-04-05] MEDS ORDERED: diphenhydrAMINE 50 MG/ML 1 ML VIAL IVP PRN (10:43)
[2018-04-05 11:33] LABS: Basophils % (A) 0 %; Eosinophils # (A) 0.1 k/uL (0-0.7); Eosinophils % (A) 1 %; HCT 44.9 % (39.0-53.0); HGB 14.5 gm/dL (13.0-17.5); Lymphocytes # (A) 0.9 k/uL (1.0-4.8); Lymphocytes % (A) 14 %; MCH 26.8 pg (25.0-35.0); MCHC 32.4 g/dL (31.0-37.0); MCV 82.6 fL (80.0-100.0); Mean Platelet Volume 7.2; Monocytes % (A) 16 %; Neutrophils # (A) 4.1 k/uL (1.3-7.7); Neutrophils % (A) 66 %; Platelet Count 273 k/uL (150-450); RBC 5.44 m/uL (4.30-5.90); RDW 13.1 % (11.5-15.5); WBC 6.2 k/uL (3.8-10.6)
--- NOTE | 2018-04-05 11:46 | XR ---
EXAMINATION TYPE: XR abdomen 1V DATE OF EXAM: 04/05/2018 CLINICAL DATA: 27-year-old male small bowel obstruction, [facility] COMPARISON: 04/04/2018 FINDINGS: Colonic gas remains though is decreased from prior exam. Small bowel loops are mildly dilated measuri ng up to 4.0 cm. Supine imaging limited for assessment of free intraperitoneal air. IMPRESSION: Slight improvement in the overall dilatation of small bowel loops currently measuring up to 4.0 cm.
--- NOTE | 2018-04-05 13:28 | P.HPIM ---
History of Present Illness H&P Date: 04/05/18 Chief Complaint: Abdominal pain 27-year-old male presented to the emergency room for suspected bowel obstruction. Patient has been admitted to the hospital multiple times for bowel obstructions. At the time of patient's last discharge, rectal stimulation was recommended daily by general surgery. It is unknown whether or not patient's caregivers have been performing this. The patient underwent a flexible sigmoidoscopy in November 2017 which revealed normal findings. There was no strictures or narrowing present. KUB x-ray: Correlate to exclude bowel obstruction. CT abdomen and pelvis: moderate to severe dilation of multiple small bowel loops throughout the abdomen measuring up to 5 cm. Similar to but not quite as severe as November 2017. Several segmental areas of narrowing and dilation are present on the right side of the abdomen. The degree of dilation makes it difficult to follow the bowel loops. The rectum is distended with stool up to 6.8 cm wide. Both small bowel obstruction and marked diffuse ileus or in the differential. An NG tube was inserted in the emergency room which the patient has since pulled out. He did receive a Dulcolax suppository yesterday. The patient has had 4 bowel movements this morning. The patient is nonverbal which is his baseline. He does appear comfortable this morning the time of examination. 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 Father Family Medical History: Seizure Disorder Additional Family Medical History / Comment(s): Father is 60 rs old. Medications and Allergies Home Medications Medication Instructions Recorded Confirmed Type Lactulose 20 gm PO AC-SUPPER 04/04/18 04/04/18 History Allergies Allergy/AdvReac Type Severity Reaction Status Date / Time No Known Allergies Allergy Verified 04/04/18 07:19 Physical Exam Vitals: Vital Signs Temp Pulse Pulse Resp BP BP BP 04/05/18 07:00 98.4 F 88 16 103/62 04/04/18 23:30 97.4 F L 88 18 120/87 04/04/18 17:30 98 04/04/18 17:07 97.3 F L 98 18 136/91 04/04/18 16:00 97.0 F L 88 20 128/86 04/04/18 13:00 96 20 140/82 Pulse Ox 04/05/18 07:00 97 04/04/18 23:30 98 04/04/18 17:30 04/04/18 17:07 96 04/04/18 16:00 96 04/04/18 13:00 97 Intake and Output 04/04/18 04/05/18 04/05/18 22:59 06:59 14:59 Intake Total 0 0 Output Total 8 Balance -8 0 Intake: Oral 0 0 Output: Stool 4 Urine/Stool Mix 4 Other: Voiding Method Toilet Diaper Diaper # Voids 3 2 # Bowel Movements 4 GENERAL: This is a 27-year-old male in no apparent distress at the time of examination. Patient is nonverbal which is his baseline. HEENT: Head is atraumatic, normocephalic. Pupils are equal, round, and reactive to light. Sclerae anicteric. Conjunctivae are clear. Mucus membranes of the mouth are moist. Neck is supple. RESPIRATORY: Clear to ausculation. No wheezes, rales, or rhonchi. No use of accessory muscles. Patient maintaining oxygen saturation greater than 92% CARDIOVASCULAR: Regular rate and rhythm. S1 and S2 noted. No systolic or diastolic murmur auscultated. No JVD noted. No S3 or S4 noted. GASTROINTESTINAL: Mild abdominal distention noted. Abdomen soft and round. Bowel sounds auscultated x 4 quadrants. Extensive scarring to abdomen from multiple previous abdominal surgeries. INTEGUMENTARY: No cyanosis. No jaundice. No rashes noted. No cellulitis noted. EXTREMITIES: 2+ peripheral pulses. No evidence of peripheral edema. PSYCHIATRIC: Awake and alert. Patient is nonverbal, which is his baseline. Results CBC & Chem 7: 04/05/18 11:01 04/04/18 07:50 Labs: Abnormal Lab Results - Last 24 Hours (Table) 04/05/18 04/05/18 Range/Units 06:15 11:01 Lymphocytes # 0.9 L (1.0-4.8) k/uL Urine Protein 1+ H (Negative) Urine Ketones 3+ H (Negative) Urine WBC Clumps Rare H (None) /hpf Urine Mucus Rare H (None) /hpf Thrombosis Risk Factor Assmnt - Choose All That Apply Any of the Below Risk Factors Present?: No Other Risk Factors: No Other congenital or acquired thrombophilia - If yes, enter type in comment: No Thrombosis Risk Factor Assessment Level: Very Low Risk Assessment and Plan Plan: ASSESSMENT: Small bowel obstruction/ileus, present on admission Multiple hospitalizations secondary to bowel obstructions History of multiple bowel check shoes with previous bowel resection 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 Appreciate recommendations and input Rectal stimulation as recommended by Dr. León. daily dulcolax suppositories Nothing by mouth. Advance diet when okay with surgery GI prophylaxis: Protonix 40 mg IV Daily DVT prophylaxis: SCDs to bilateral lower extremities Monitor vital signs and address as appropriate Discharge planning: Patient to return home when stable Further recommendations pending patient's course Nurse practitioner note has been reviewed by physician. Signing provider agrees with the documented findings, assessment, and plan of care.
[2018-04-05] MEDS: LACTULOSE 20 GM/30 ML CUP PO SCH (17:09)
[2018-04-06] MEDS: SODIUM CHLORIDE 0.9% 1,000 ML IV SCH ×2 (06:17→09:55)
[2018-04-06 08:14] LABS: Basophils % (A) 0 %; Eosinophils # (A) 0.2 k/uL (0-0.7); Eosinophils % (A) 3 %; HCT 43.4 % (39.0-53.0); HGB 14.3 gm/dL (13.0-17.5); Lymphocytes % (A) 21 %; MCH 27.5 pg (25.0-35.0); MCHC 32.9 g/dL (31.0-37.0); MCV 83.6 fL (80.0-100.0); Mean Platelet Volume 7.3; Monocytes # (A) 0.8 k/uL (0-1.0); Monocytes % (A) 17 %; Neutrophils # (A) 2.6 k/uL (1.3-7.7); Neutrophils % (A) 56 %; Platelet Count 232 k/uL (150-450); RBC 5.19 m/uL (4.30-5.90); RDW 13.1 % (11.5-15.5); WBC 4.7 k/uL (3.8-10.6)
[2018-04-06 08:18] LABS: Anion Gap 8 mmol/L; Blood Urea Nitrogen 15 mg/dL (9-20); Calcium 9.2 mg/dL (8.4-10.2); Carbon Dioxide 24 mmol/L (22-30); Chloride 109 mmol/L (98-107); Glucose 81 mg/dL (74-99); Potassium 4.2 mmol/L (3.5-5.1); Sodium 141 mmol/L (137-145)
[2018-04-06 08:57] VITALS: BMI 21.4
[2018-04-06] MEDS: PANTOPRAZOLE 40 MG/10 ML VIAL IV SCH (09:52)
[2018-04-06] MEDS: BISACODYL 10 MG SUPP RECTAL SCH (09:53)
--- NOTE | 2018-04-06 14:54 | P.PN ---
Subjective Progress Note Date: 04/06/18 Principal diagnosis: Ileus Patient doing better today. Had multiple loose stools since yesterday. Patient 's mother is present who states he is back to baseline. No obvious discomfort. Objective - Vital Signs Vital signs: Vital Signs Temp 97.8 F 04/06/18 07:25 Pulse 78 04/06/18 07:25 Resp 19 04/06/18 07:25 BP 110/71 04/06/18 07:25 Pulse Ox 95 04/06/18 07:25 Intake & Output 04/05/18 04/06/18 04/06/18 18:59 06:59 18:59 Weight 65.771 kg Other: Voiding Method Toilet Toilet Toilet Diaper Diaper Diaper # Voids 3 1 3 # Bowel Movements 3 1 - Exam Abdomen: Soft, nondistended, nontender - Labs CBC & Chem 7: 04/06/18 07:44 04/06/18 07:44 Labs: Abnormal Lab Results - Last 24 Hours (Table) 04/06/18 Range/Units 07:44 Chloride 109 H (98-107) mmol/L Assessment and Plan (1) Ileus Narrative/Plan: Continue intermittent rectal stimulation particularly when the patient's symptoms seem to be recurring. Prescription for Dulcolax suppositories provided. May discharge from my standpoint. Current Visit: No Status: Acute Code(s): K56.7 - ILEUS, UNSPECIFIED SNOMED Code(s): 731296894
[2018-04-06 15:10] VITALS: BP 138/87; PULSE 80; RESP 18; TEMP 97.4
--- NOTE | 2018-04-07 11:02 | P.DS ---
Providers Date of admission: 04/04/18 09:13 Expected date of discharge: 04/06/18 Attending physician: Jon Mayes Consults: 04/04/18 09:00 Consult Physician Stat Consulting Provider: Trae Sands Reason/Comments: SBO Do you want consulting provider notified?: Yes Primary care physician: Jon Mayes [facility] Course: 27-year-old male presented to the emergency room for suspected bowel obstruction. Patient has been admitted to the hospital multiple times for bowel obstructions. At the time of patient's last discharge, rectal stimulation was recommended daily by general surgery. It is unknown whether or not patient's caregivers have been performing this. The patient underwent a flexible sigmoidoscopy in November 2017 which revealed normal findings. There was no strictures or narrowing present. KUB x-ray: Correlate to exclude bowel obstruction. CT abdomen and pelvis: moderate to severe dilation of multiple small bowel loops throughout the abdomen measuring up to 5 cm. Similar to but not quite as severe as November 2017. Several segmental areas of narrowing and dilation are present on the right side of the abdomen. The degree of dilation makes it difficult to follow the bowel loops. The rectum is distended with stool up to 6.8 cm wide. Both small bowel obstruction and marked diffuse ileus or in the differential. An NG tube was inserted in the emergency room which the patient has since pulled out. He has been receiving daily Dulcolax suppositories. The patient has had multiple bowel movements this admission. He was placed on a clear liquid diet and has been tolerating without difficulty. The patient was deemed stable for discharge per Dr. Mayes. The patient is to continue Dulcolax suppositories as rectal stimulation was recommended by Dr. sands. 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 Signing provider agrees with the documented findings, assessment, and plan of care. Patient Condition at Discharge: Stable Plan - Discharge Summary Discharge Rx Participant: Yes New Discharge Prescriptions: New Bisacodyl [Dulcolax] 10 mg RECTAL DAILY PRN #30 supp PRN Reason: Constipation Continue Lactulose 20 gm PO AC-SUPPER Discharge Medication List Lactulose 20 gm PO AC-SUPPER 04/04/18 [History] Bisacodyl [Dulcolax] 10 mg RECTAL DAILY PRN #30 supp 04/06/18 [Rx] Follow up Appointment(s)/Referral(s): Jon Mayes DO [Primary Care Provider] - 1 Week Discharge Disposition: HOME WITH HOME HEALTH SERVICES
== END 2018-04-06 17:41 | disposition home health service (06) | DRG 389 ==
LOC: EC 06:52 → 4MS4W 09:13
PROVIDERS: ADMIT Family Medicine; ATTEND Family Medicine
DX: K56.609 Unspecified intestinal obstruction, unspecified as to partial versus complete obstruction (principal); R47.01 Aphasia; D72.829 Elevated white blood cell count, unspecified; G80.9 Cerebral palsy, unspecified; F79 Unspecified intellectual disabilities; Z80.3 Family history of malignant neoplasm of breast; Z82.0 Family history of epilepsy and other diseases of the nervous system; Z90.49 Acquired absence of other specified parts of digestive tract; R32 Unspecified urinary incontinence; Z98.2 Presence of cerebrospinal fluid drainage device; R41.89 Other symptoms and signs involving cognitive functions and awareness; Z79.899 Other long term (current) drug therapy
CPT/HCPCS: 36415; 43753; 71046; 74018; 74177; 80048; 80053; 81001; 82150; 83690; 85025; 85610; 85730; 96361; 96374; 99285

== ENCOUNTER 2018-10-18 18:30 | Inpatient (IN) | payer MEDICARE, OTHER ==
[2018-10-18] MEDS ORDERED: ONDANSETRON 4 MG/2 ML VIAL IVP STA (19:39)
[2018-10-18] MEDS ORDERED: SODIUM CHLORIDE 0.9% 1,000 ML IV STA (19:39)
--- NOTE | 2018-10-18 20:06 | XR ---
Abdomen single view. History abdominal pain. Comparison 04/05/2018. FINDINGS: 2 views supine were obtained. There is gaseous distention of multiple loops of large and small bowel. There appears to be gas down to the rectum. I see no definite free air. Lung bases are clear. There are no pathologic calcifications. IMPRESSION: Distended loops of gas filled bowel consistent with generalized ileus or air swallowing. No change.
[2018-10-18 20:07] LABS: ALT 38 U/L (21-72); AST 25 U/L (17-59); Albumin 5.3 g/dL (3.5-5.0); Alkaline Phosphatase 57 U/L (38-126); Anion Gap 16 mmol/L; Blood Urea Nitrogen 23 mg/dL (9-20); Calcium 10.4 mg/dL (8.4-10.2); Carbon Dioxide 26 mmol/L (22-30); Chloride 99 mmol/L (98-107); Glucose 141 mg/dL (74-99); Potassium 4.4 mmol/L (3.5-5.1); Sodium 141 mmol/L (137-145); Total Bilirubin 0.6 mg/dL (0.2-1.3); Total Protein 8.7 g/dL (6.3-8.2)
[2018-10-18 20:12] LABS: HCT 47.5 % (39.0-53.0); HGB 16.1 gm/dL (13.0-17.5); MCH 28.2 pg (25.0-35.0); MCHC 33.8 g/dL (31.0-37.0); MCV 83.2 fL (80.0-100.0); Mean Platelet Volume 6.9; Platelet Count 269 k/uL (150-450); RBC 5.71 m/uL (4.30-5.90); WBC 11.9 k/uL (3.8-10.6)
--- NOTE | 2018-10-18 20:17 | ED ---
Abdominal Pain HPI <Fidel Loza - Last Filed: 10/18/18 23:03> - General Source: patient Mode of arrival: ambulatory Limitations: no limitations <Reva Marino - Last Filed: 10/18/18 23:07> - General Chief Complaint: Abdominal Pain Stated Complaint: poss bowel obstruction Time Seen by Provider: 10/18/18 19:08 - History of Present Illness Initial Comments: 28-year-old male patient who is nonverbal, severely mentally impaired, history of bowel structure presents to the emergency department today with family member for evaluation of distended abdomen, decreased appetite, abdominal pain, and frequent belching. Symptoms started yesterday. They states he has had a small amount of fluid intake today, but no food. Patient does have history of bowel obstruction and symptoms are similar to his previous episodes. He is unable to provide history. They deny any fevers or chills. Patient has not been vomiting. States he did have a liquidy bowel movements after her dose of lactulose. They state he is incontinent of urine, but has had wet briefs today. (Reva Marino) - Related Data Home Medications Medication Instructions Recorded Confirmed Lactulose 20 gm PO BID 04/04/18 10/18/18 Psyllium Husk 100% [Metamucil 6 gm PO W/LUNCH 10/18/18 10/18/18 Packet] Allergies Allergy/AdvReac Type Severity Reaction Status Date / Time No Known Allergies Allergy Verified 10/18/18 19:13 Review of Systems ROS Other: All systems not noted in ROS Statement are negative. <Fidel Loza - Last Filed: 10/18/18 23:03> ROS Other: All systems not noted in ROS Statement are negative. <Reva Marino - Last Filed: 10/18/18 23:07> ROS Statement: Those systems with pertinent positive or pertinent negative responses have been documented in the HPI. 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 Father Family Medical History: Seizure Disorder Additional Family Medical History / Comment(s): Father is 60 rs old. <Reva Marino M - Last Filed: 10/18/18 23:07> General Exam Limitations: no limitations General appearance: alert, in no apparent distress, other (This is a well- developed, thin appearing adult male patient in no acute distress. Vital signs upon presentation are temperature 98.6F, pulse 120, respirations 18, blood pressure 154/95, pulse ox 97% on room air.) Eye exam: Present: normal appearance, PERRL, EOMI. Absent: scleral icterus, conjunctival injection, periorbital swelling ENT exam: Present: normal exam, normal oropharynx, mucous membranes moist Respiratory exam: Present: normal lung sounds bilaterally. Absent: respiratory distress, wheezes, rales, rhonchi, stridor Cardiovascular Exam: Present: normal rhythm, tachycardia, normal heart sounds. Absent: systolic murmur, diastolic murmur, rubs, gallop, clicks GI/Abdominal exam: Present: distended, normal bowel sounds. Absent: tenderness , guarding, rebound, rigid Neurological exam: Present: alert, oriented X3, CN II-XII intact Psychiatric exam: Present: normal affect, normal mood Skin exam: Present: warm, dry, intact, normal color. Absent: rash <Reva Marino - Last Filed: 10/18/18 23:07> Vital Signs 10/18/18 10/18/18 10/18/18 18:39 20:20 21:49 Temperature 98.6 F Pulse Rate 120 H 101 H 96 Respiratory 18 16 16 Rate Blood Pressure 154/95 136/82 128/70 O2 Sat by Pulse 97 98 100 Oximetry Medical Decision Making - Lab Data Result diagrams: 10/18/18 19:38 02 19:38 <Fidel Loza - Last Filed: 10/18/18 23:03> - Lab Data Result diagrams: 10/18/18 19:38 10/18/18 19:38 - Radiology Data Radiology results: report reviewed, image reviewed <Reva Marino - Last Filed: 10/18/18 23:07> - Medical Decision Making I saw this patient in conjunction with the physician assistant professor of business. I performed independent history and physical exam. Agree with case management. (Fidel Loza) 28-year-old male patient presents to the emergency department today for evaluation of abdominal distention, abdominal pain, and belching. Decreased food and fluid intake. Physical examination did reveal distended from abdomen. Labs reviewed and did reveal elevated white blood cell count and lactic acid 2.4. Patient did have mild elevation in BUN. He was given IV fluids. CT abdomen and pelvis did reveal evidence of dilated small bowel loops consistent with ileus, however a mechanical small bowel structure cannot be ruled out. Patient be admitted to the hospital. We'll insert NG tube he will be nothing by mouth. Dr. Mayes was notified and requested Dr. León be consulted. I did discuss findings, results, and plan with the patient's family, they are agreeable (Reva Marino) - Lab Data Lab Results 10/18/18 10/18/18 10/18/18 Range/Units 19:17 19:38 19:38 WBC 11.9 H (3.8-10.6) k/uL RBC 5.71 (4.30-5.90) m/uL Hgb 16.1 (13.0-17.5) gm/dL Hct 47.5 (39.0-53.0) % MCV 83.2 (80.0-100.0) fL MCH 28.2 (25.0-35.0) pg MCHC 33.8 (31.0-37.0) g/dL RDW 13.0 (11.5-15.5) % Plt Count 269 (150-450) k/uL Neutrophils % (Manual) 53 % Band Neutrophils % 25 % Lymphocytes % (Manual) 8 % Monocytes % (Manual) 15 % Myelocytes % 1 % Neutrophils # (Manual) 9.20 H (1.3-7.7) k/uL Lymphocytes # (Manual) 0.95 L (1.0-4.8) k/uL Monocytes # (Manual) 1.79 H (0-1.0) k/uL Myelocytes # (Manual) 0.12 H (0) k/uL Nucleated RBCs 0 (0-0) /100 WBC Manual Slide Review Performed Toxic Granulation Present Toxic Vacuolation Present Large Platelets Present Sodium 141 (137-145) mmol/L Potassium 4.4 (3.5-5.1) mmol/L Chloride 99 (98-107) mmol/L Carbon Dioxide 26 (22-30) mmol/L Anion Gap 16 mmol/L BUN 23 H (9-20) mg/dL Creatinine 0.70 (0.66-1.25) mg/dL Est GFR (CKD-EPI)AfAm >90 (>60 ml/min/1.73 sqM) Est GFR (CKD-EPI)NonAf >90 (>60 ml/min/1.73 sqM) Glucose 141 H (74-99) mg/dL Plasma Lactic Acid Taj (0.7-2.0) mmol/L Calcium 10.4 H (8.4-10.2) mg/dL Total Bilirubin 0.6 (0.2-1.3) mg/dL AST 25 (17-59) U/L ALT 38 (21-72) U/L Alkaline Phosphatase 57 (38-126) U/L Total Protein 8.7 H (6.3-8.2) g/dL Albumin 5.3 H (3.5-5.0) g/dL Amylase 46 (30-110) U/L Lipase 41 (23-300) U/L 10/18/18 Range/Units 20:13 WBC (3.8-10.6) k/uL RBC (4.30-5.90) m/uL Hgb (13.0-17.5) gm/dL Hct (39.0-53.0) % MCV (80.0-100.0) fL MCH (25.0-35.0) pg MCHC (31.0-37.0) g/dL RDW (11.5-15.5) % Plt Count (150-450) k/uL Neutrophils % (Manual) % Band Neutrophils % % Lymphocytes % (Manual) % Monocytes % (Manual) % Myelocytes % % Neutrophils # (Manual) (1.3-7.7) k/uL Lymphocytes # (Manual) (1.0-4.8) k/uL Monocytes # (Manual) (0-1.0) k/uL Myelocytes # (Manual) (0) k/uL Nucleated RBCs (0-0) /100 WBC Manual Slide Review Toxic Granulation Toxic Vacuolation Large Platelets Sodium (137-145) mmol/L Potassium (3.5-5.1) mmol/L Chloride (98-107) mmol/L Carbon Dioxide (22-30) mmol/L Anion Gap mmol/L BUN (9-20) mg/dL Creatinine (0.66-1.25) mg/dL Est GFR (CKD-EPI)AfAm (>60 ml/min/1.73 sqM) Est GFR (CKD-EPI)NonAf (>60 ml/min/1.73 sqM) Glucose (74-99) mg/dL Plasma Lactic Acid Taj 2.4 H* (0.7-2.0) mmol/L Calcium (8.4-10.2) mg/dL Total Bilirubin (0.2-1.3) mg/dL AST (17-59) U/L ALT (21-72) U/L Alkaline Phosphatase (38-126) U/L Total Protein (6.3-8.2) g/dL Albumin (3.5-5.0) g/dL Amylase (30-110) U/L Lipase (23-300) U/L - Radiology Data KUB x-ray of the abdomen was obtained. Report was reviewed in its entirety. Impression by Dr. Limon shows distended loops of gas filled bowel consistent with generalized ileus to air swallowing. No change CT abdomen and pelvis with contrast was obtained. Report was reviewed in its entirety. Impression by Dr. Limon shows chronically dilated bowel consistent with ileus. Mechanical obstruction not excluded. Dilated bowel similar to last computed tomography scan. No free air. (Bantle,Reva M) Disposition <Fidel Loza - Last Filed: 10/18/18 23:03> Decision to Admit Reason: Admit from EC Decision Date: 10/18/18 Decision Time: 23:07 <Reva Marino - Last Filed: 10/18/18 23:07> Clinical Impression: Ileus, Abdominal pain Disposition: ADMITTED IP TO THIS [facility] Condition: Serious Referrals: Jon Mayes DO [Primary Care Provider] - 1-2 days
[2018-10-18 20:36] LABS: Amylase 46 U/L (30-110); Lipase 41 U/L (23-300)
[2018-10-18 20:52] LABS: Band Neutrophils % 25 %; Lymphocytes # (M) 0.95 k/uL (1.0-4.8); Monocytes # (M) 1.79 k/uL (0-1.0); Myelocytes # (M) 0.12 k/uL (0); Myelocytes % 1 %; Neutrophils % (M) 53 %; Nucleated Red Blood Cells 0 /100 WBC (0-0); Total Cells Counted 200
[2018-10-18 20:53] LABS: Toxic Vacuolation Present
[2018-10-18 20:54] LABS: Large Platelets Present; Toxic Granulation Present
--- NOTE | 2018-10-18 21:15 | CT ---
EXAMINATION TYPE: CT abdomen pelvis w con DATE OF EXAM: 10/18/2018 COMPARISON: 04/04/2018 HISTORY: abdomen pain, hx bowel obstruction, sx resection CT DLP: 673.1 mGycm Automated exposure control for dose reduction was used. TECHNIQUE: Helical acquisition of images was performed from the lung bases through the pelvis. CONTRAST: Performed without Oral Contrast and with IV Contrast, patient injected with 100 mL of Isovue 300. FINDINGS: Lung bases are clear of infiltrate. There is no pleural effusion. Heart size is normal. There are mul tiple distended dilated gas and fluid-filled loops of large and small bowel. Small bowel is dilated u p to 4.5 cm. There is gas and fluid down to the rectum. There appears to be resection of most of the large bowel. Correlation with the surgical history is needed. There is septated 2 cm cyst in the right lobe of the liver. The bile ducts are not dilated. There are clips from cholecystectomy. Spleen appears normal. There is no evidence of pancreatic mass. Kidneys show satisfactory contrast opacification. There is no hydronephrosis. Ureters are not dilated. There is no sign of free air. There is no ascites. The bony structures are intact. IMPRESSION: CHRONICALLY DILATED BOWEL CONSISTENT WITH ILEUS . Mechanical obstruction not excluded. Dilated bowel is similar to last CT scan. No free air.
[2018-10-18] MEDS ORDERED: NALOXONE 0.4 MG/ML 1 ML VIAL IV PRN (22:59)
[2018-10-18 23:12] LABS: Appearance,Urine Clear (Clear); Bilirubin,Urine Negative (Negative); Blood,Urine Negative (Negative); Color,Urine Light Yellow; Glucose,Urine (UA) Negative (Negative); Ketones,Urine Trace (Negative); Leukocyte Esterase,Urine Negative (Negative); Nitrite,Urine Negative (Negative); PH, Urine 5.5 (5.0-8.0); Protein,Urine Trace (Negative); Urobilinogen,Urine <2.0 mg/dL (<2.0)
[2018-10-18 23:15] LABS: Specific Gravity,Urine >1.050 (1.001-1.035)
[2018-10-19] MEDS: SODIUM CHLORIDE 0.9% 1,000 ML IV SCH ×3 (07:21→20:00)
[2018-10-19 16:01] VITALS: BMI 18.2
--- NOTE | 2018-10-19 22:36 | P.GSCN ---
History of Present Illness Consult date: 10/19/18 Reason for Consult: Ileus History of present illness: Patient will monitor service. The patient was just hospitalized at [facility] approximately one month ago. 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 Patient has had much of his bowel removed as an infant. Patient is doing much better at this time. Nasogastric tube remains to suction. Abdomen is soft today. No obvious discomfort. He is afebrile. 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 LIVES WITH HIS SISTER AND MOTHER WATCHES HIM DURING THE DAY. SISTER (HELENE) AND HER SPOUSE HAVE RECENTLY ADOPTED PT-NEED PAPERWORK. SISTER AND MOTHER HAD LEGAL GUARDIANSHIP PRIOR. UNABLE TO READ OR WRITE BUT GOES TO A [employer] PROGRAM IN [place] WHERE HE LEARNED JUST A FEW THINGS IN SIGN LANGUAGE. PT ABLE TO AMBULATE ON HIS OWN AND HE CAN FOLLOW DIRECTIONS FAIRLY WELL, AND SHAKE HIS HEAD YES /NO. Pt sensitive to buzzing noises. Smoking Status: Never smoker Past Alcohol Use History: None Reported Past Drug Use History: None Reported - Past Family History Mother Family Medical History: Cancer Additional Family Medical History / Comment(s): BREAST CANCER-mother is 63 yrs old. Father Family Medical History: Seizure Disorder Additional Family Medical History / Comment(s): Father is 60 rs old. Medications and Allergies Home Medications Medication Instructions Recorded Confirmed Type Lactulose 20 gm PO BID 04/04/18 10/18/18 History Psyllium Husk 100% [Metamucil 6 gm PO W/LUNCH 10/18/18 10/18/18 History Packet] Allergies Allergy/AdvReac Type Severity Reaction Status Date / Time No Known Allergies Allergy Verified 10/18/18 19:13 Surgical - Exam Vital Signs Temp Pulse Resp BP Pulse Ox 98.6 F 120 H 18 154/95 97 10/18/18 18:39 10/18/18 18:39 10/18/18 18:39 10/18/18 18:39 10/18/18 18:39 Physical exam: General: Contractures, slightly malnourished HEENT: Normocephalic, sclerae nonicteric Abdomen: Nontender, nondistended Extremities: No edema Neuro: Alert Results - Labs 10/18/18 19:38 10/18/18 19:38 Abnormal Lab Results - Last 24 Hours (Table) 10/18/18 Range/Units 22:40 Ur Specific [place] >1.050 H (1.001-1.035) Urine Protein Trace H (Negative) Urine Ketones Trace H (Negative) Microbiology - Last 24 Hours (Table) 10/18/18 20:13 Blood Culture - Preliminary Blood No Growth after 24 hours Assessment and Plan Assessment: Patient with recurrent ileus. Continue rectal stimulation which seems to help resolve this patient's ileus episodes. Keep nasogastric tube today. Repeat x- rays tomorrow.
--- NOTE | 2018-10-19 22:41 | P.HPIM ---
History of Present Illness H&P Date: 10/19/18 some pleasant 28-year-old white male who is severely mentally impaired has had multiple admissions for similar problems related to small bowel obstruction. He 's had multiple abdominal surgeries were in use infantdue to defects on his abdomen he is currently on lactulose daily and use of enemas when needed. His power of city attorney is his sister who has maintained good care of patient. He is noncommunicating and rest of history is taken from previous records. He presented to the emergency department last night with family member for evaluation of distended abdomen, decreased appetite, abdominal pain, and frequent belching. Symptoms started yesterday. They states he has had a small amount of fluid intake today, but no food. Patient does have history of bowel obstruction and symptoms are similar to his previous episodes. He is unable to provide history. They deny any fevers or chills. Patient has not been vomiting. States he did have a liquidy bowel movements after her dose of lactulose. They state he is incontinent of urine, but has had wet briefs today. 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 History of Any Multi-Drug Resistant Organisms: None Reported Past Surgical History: Bowel Resection Additional Past Surgical History / Comment(s): EGDs, colonoscopies and had a sigmoidoscopy on 12/12/17, oral surgery, esphogeal surgery for large esophagus- PT IS UNABLE TO THROW UP, partial lower intestine removed, shunt in brain, repaired a hole in his heart as -went in through his back, Past Anesthesia/Blood Transfusion Reactions: No Reported Reaction Past Psychological History: No Psychological Hx Reported Additional Psychological History / Comment(s): PT WAS BORN PREMATURE(AT 5.5 MONTHS) WT WAS 1 POUND 6 OUNCES.HAS CEREBAL PALSEY,SEVERE MENTAL RETARDATION/ severe cognitive impairment. LIVES WITH HIS SISTER AND MOTHER WATCHES HIM DURING THE DAY. SISTER (HELENE) AND HER SPOUSE HAVE RECENTLY ADOPTED PT-NEED PAPERWORK. SISTER AND MOTHER HAD LEGAL GUARDIANSHIP PRIOR. UNABLE TO READ OR WRITE BUT GOES TO A [employer] PROGRAM IN [place] WHERE HE LEARNED JUST A FEW THINGS IN SIGN LANGUAGE. PT ABLE TO AMBULATE ON HIS OWN AND HE CAN FOLLOW DIRECTIONS FAIRLY WELL, AND SHAKE HIS HEAD YES /NO. Pt sensitive to buzzing noises. Smoking Status: Never smoker Past Alcohol Use History: None Reported Past Drug Use History: None Reported - Past Family History Mother Family Medical History: Cancer Additional Family Medical History / Comment(s): BREAST CANCER-mother is 63 yrs old. Father Family Medical History: Seizure Disorder Additional Family Medical History / Comment(s): Father is 60 rs old. Medications and Allergies Home Medications Medication Instructions Recorded Confirmed Type Lactulose 20 gm PO BID 04/04/18 10/18/18 History Psyllium Husk 100% [Metamucil 6 gm PO W/LUNCH 10/18/18 10/18/18 History Packet] Allergies Allergy/AdvReac Type Severity Reaction Status Date / Time No Known Allergies Allergy Verified 10/18/18 19:13 Physical Exam Osteopathic Statement: *. No significant issues noted on an osteopathic structural exam other than those noted in the History and Physical/Consult. Vitals: Vital Signs Temp Pulse Pulse Resp BP Pulse Ox 10/19/18 15:28 98.5 F 88 16 127/74 97 10/19/18 07:14 12 10/19/18 07:12 97.7 F 106 H 12 114/87 98 10/19/18 01:30 97.7 F 102 H 18 143/92 95 10/18/18 23:33 96 18 100 Intake and Output 10/19/18 10/19/18 10/19/18 06:59 14:59 22:59 Intake Total 600 700 Output Total 200 Balance 400 700 Intake: Intake, IV Titration 600 700 Amount Sodium Chloride 0.9% 1, 600 700 000 ml @ 100 mls/hr IV . Q10H RADHA Rx#:[id number] Output: Gastric Drainage 200 Other: Voiding Method Diaper Diaper # Voids 1 2 Weight 57.606 kg Results CBC & Chem 7: 10/18/18 19:38 10/18/18 19:38 Labs: Abnormal Lab Results - Last 24 Hours (Table) 10/18/18 Range/Units 22:40 Ur Specific [place] >1.050 H (1.001-1.035) Urine Protein Trace H (Negative) Urine Ketones Trace H (Negative) Microbiology - Last 24 Hours (Table) 10/18/18 20:13 Blood Culture - Preliminary Blood No Growth after 24 hours Thrombosis Risk Factor Assmnt - Choose All That Apply Any of the Below Risk Factors Present?: No Other Risk Factors: No Other congenital or acquired thrombophilia - If yes, enter type in comment: No Thrombosis Risk Factor Assessment Level: Very Low Risk Assessment and Plan (1) Abdominal pain Current Visit: Yes Status: Acute Code(s): R10.9 - UNSPECIFIED ABDOMINAL PAIN SNOMED Code(s): 87934770 (2) Ileus Current Visit: Yes Status: Acute Code(s): K56.7 - ILEUS, UNSPECIFIED SNOMED Code(s): 223828557 (3) Bowel obstruction Current Visit: No Status: Acute Code(s): K56.60 - UNSPECIFIED INTESTINAL OBSTRUCTION * DO NOT USE * SNOMED Code(s): 37983907 (4) Nonverbal Current Visit: No Status: Acute Code(s): R47.01 - APHASIA SNOMED Code(s): 546859834 Plan: plan his NG tube to suction, had been place patientin the hospital will have surgery Dr. León to see patient as he is well known to him and we'll go ahead keep him nothing by mouth until he is ileus is resolved and then start feeding with clear liquid diet and advance as tolerated. He typically responds very nicely now. Time with Patient: Greater than 30
[2018-10-20] MEDS: SODIUM CHLORIDE 0.9% 1,000 ML IV SCH ×2 (05:28→17:35)
[2018-10-20] MEDS: BISACODYL 10 MG SUPP RECTAL SCH (08:38)
[2018-10-20 09:03] LABS: HCT 43.2 % (39.0-53.0); HGB 14.6 gm/dL (13.0-17.5); MCH 28.7 pg (25.0-35.0); MCHC 33.8 g/dL (31.0-37.0); MCV 84.9 fL (80.0-100.0); Mean Platelet Volume 6.8; Platelet Count 239 k/uL (150-450); RBC 5.09 m/uL (4.30-5.90); WBC 7.4 k/uL (3.8-10.6)
[2018-10-20 09:04] LABS: Anion Gap 15 mmol/L; Blood Urea Nitrogen 22 mg/dL (9-20); Calcium 9.8 mg/dL (8.4-10.2); Carbon Dioxide 29 mmol/L (22-30); Chloride 100 mmol/L (98-107); Glucose 93 mg/dL (74-99); Potassium 4.1 mmol/L (3.5-5.1); Sodium 144 mmol/L (137-145)
--- NOTE | 2018-10-20 10:50 | XR ---
EXAMINATION TYPE: XR abdomen 2V DATE OF EXAM: 10/20/2018 COMPARISON: 10/18/2018 INDICATION: Follow-up ileus TECHNIQUE: Abdomen examined in upright and supine views. FINDINGS: Nasogastric tube tip is in the left upper quadrant of the abdomen. This could be advanced slightly by about 5 cm. Nonspecific bowel gas is present. Previous ileus appears diminished. No free air is evid ent. No mass effect is evident. Psoas margins are normal. No suspicious air-fluid levels or different ial air-fluid levels are evident. IMPRESSION: 1. Nonspecific abdomen. Ileus appears diminished from comparison. 2. Nasogastric tube placement, this could be advanced approximately 5 cm.
--- NOTE | 2018-10-20 11:11 | P.PN ---
Subjective Progress Note Date: 10/20/18 Principal diagnosis: Ileus Patient doing well today. He has had some bowel function. No nausea or vomiting. Nasogastric tube in place. Abdomen is soft. X-rays improved. Objective - Vital Signs Vital signs: Vital Signs Temp 97.2 F L 10/20/18 07:45 Pulse 86 10/20/18 07:45 Resp 14 10/20/18 07:45 BP 128/73 10/20/18 07:45 Pulse Ox 100 10/19/18 22:25 Intake & Output 10/19/18 10/20/18 10/20/18 18:59 06:59 18:59 Intake Total 792 468 8297 Output Total 1200 Balance 700 200 -200 Weight 57.606 kg Intake: Intake, IV Titration 263 116 2884 Amount Sodium Chloride 0.9% 1, 283 886 1513 000 ml @ 100 mls/hr IV . Q10H RADHA Rx#:[id number] Output: Gastric Drainage 1200 Other: Voiding Method Diaper Diaper # Voids 2 2 - Exam Abdomen: Soft, nontender, nondistended - Labs CBC & Chem 7: 10/20/18 08:07 10/20/18 08:07 Labs: Abnormal Lab Results - Last 24 Hours (Table) 10/20/18 Range/Units 08:07 BUN 22 H (9-20) mg/dL Creatinine 0.61 L (0.66-1.25) mg/dL Microbiology - Last 24 Hours (Table) 10/18/18 20:13 Blood Culture - Preliminary Blood No Growth after 24 hours Assessment and Plan (1) Ileus Narrative/Plan: Patient doing well today. Remove nasogastric tube. Start full liquids. Possible discharge later today. Current Visit: Yes Status: Acute Code(s): K56.7 - ILEUS, UNSPECIFIED SNOMED Code(s): 632678870
--- NOTE | 2018-10-20 21:11 | P.PN ---
Subjective Progress Note Date: 10/20/18 this is a pleasant 28-year-old debilitated male is admitted for an acute abdominal ileus. He's had multiple episodes of this the past. He currently has NG tube to suction is nothing by mouth. His abdomen is less distended and hopefully today he'll be able to get his NG tube removed and diet advanced discussed with nursing staff to notify Objective - Vital Signs Vital signs: Vital Signs Temp 96.3 F L 10/20/18 19:34 Pulse 86 10/20/18 19:34 Resp 16 10/20/18 19:34 BP 114/69 10/20/18 19:34 Pulse Ox 97 10/20/18 19:34 Intake & Output 10/20/18 10/20/18 10/21/18 06:59 18:59 06:59 Intake Total 200 1350 Output Total 1200 Balance 200 150 Intake: Intake, IV Titration 200 1000 Amount Sodium Chloride 0.9% 1, 200 1000 000 ml @ 100 mls/hr IV . Q10H [facility] Rx#:[id number] Oral 350 Output: Gastric Drainage 1200 Other: Voiding Method Diaper # Voids 2 2 # Bowel Movements 1 - Exam General appearance: alert, in no apparent distress, other (This is a well- developed, thin appearing adult male patient in no acute distress. Vital signs upon presentation are temperature 98.6F, pulse 120, respirations 18, blood pressure 154/95, pulse ox 97% on room air.) Eye exam: Present: normal appearance, PERRL, EOMI. Absent: scleral icterus, conjunctival injection, periorbital swelling ENT exam: Present: normal exam, normal oropharynx, mucous membranes moist Respiratory exam: Present: normal lung sounds bilaterally. Absent: respiratory distress, wheezes, rales, rhonchi, stridor Cardiovascular Exam: Present: normal rhythm, tachycardia, normal heart sounds. Absent: systolic murmur, diastolic murmur, rubs, gallop, clicks GI/Abdominal exam: Present: distended, normal bowel sounds. Absent: tenderness , guarding, rebound, rigid Neurological exam: Present: alert, oriented X3, CN II-XII intact Psychiatric exam: Present: normal affect, normal mood Skin exam: Present: warm, dry, intact, normal color. Absent: rash - Labs CBC & Chem 7: 10/20/18 08:07 10/20/18 08:07 Labs: Abnormal Lab Results - Last 24 Hours (Table) 10/20/18 Range/Units 08:07 BUN 22 H (9-20) mg/dL Creatinine 0.61 L (0.66-1.25) mg/dL Microbiology - Last 24 Hours (Table) 10/18/18 20:13 Blood Culture - Preliminary Blood No Growth after 24 hours Assessment and Plan (1) Abdominal pain Current Visit: Yes Status: Acute Code(s): R10.9 - UNSPECIFIED ABDOMINAL PAIN SNOMED Code(s): 78679083 (2) Ileus Current Visit: Yes Status: Acute Code(s): K56.7 - ILEUS, UNSPECIFIED SNOMED Code(s): 812560866 (3) Bowel obstruction Current Visit: No Status: Acute Code(s): K56.60 - UNSPECIFIED INTESTINAL OBSTRUCTION * DO NOT USE * SNOMED Code(s): 08608298 (4) Nonverbal Current Visit: No Status: Acute Code(s): R47.01 - APHASIA SNOMED Code(s): 872607376 Plan: he is doing better today his abdomen is less distended we could pull NG tube and start thi will assess him today and dissipate discharge within 24 hours. [facility] hospitalists group will follow over the weekend if he tolerates diet than he can be discharged
[2018-10-21] MEDS: SODIUM CHLORIDE 0.9% 1,000 ML IV SCH (02:59)
[2018-10-21] MEDS: BISACODYL 10 MG SUPP RECTAL SCH ×2 (09:57→10:03)
--- NOTE | 2018-10-21 10:28 | P.PN ---
Subjective Progress Note Date: 10/21/18 Principal diagnosis: Ileus Patient doing well today. Tolerating diet. Further bowel movements. No apparent discomfort. Objective - Vital Signs Vital signs: Vital Signs Temp 97.7 F 10/21/18 07:08 Pulse 86 10/21/18 07:08 Resp 18 10/21/18 07:08 BP 116/77 10/21/18 07:08 Pulse Ox 99 10/21/18 07:08 Intake & Output 10/20/18 10/21/18 10/21/18 18:59 06:59 18:59 Intake Total 1350 800 236 Output Total 1200 Balance 150 800 236 Intake: Intake, IV Titration 1000 800 Amount Sodium Chloride 0.9% 1, 1000 800 000 ml @ 100 mls/hr IV . Q10H [facility] Rx#:[id number] Oral 350 236 Output: Gastric Drainage 1200 Other: Voiding Method Diaper Diaper Diaper # Voids 2 2 # Bowel Movements 1 - Exam Abdomen: Soft, nontender, nondistended - Labs CBC & Chem 7: 10/20/18 08:07 10/20/18 08:07 Labs: Microbiology - Last 24 Hours (Table) 10/18/18 20:13 Blood Culture - Preliminary Blood No Growth after 48 hours Assessment and Plan (1) Ileus Narrative/Plan: Continue diet as tolerated. Continue daily digital rectal stimulation. May discharge. Current Visit: Yes Status: Acute Code(s): K56.7 - ILEUS, UNSPECIFIED SNOMED Code(s): 425763986
--- NOTE | 2018-10-21 15:11 | P.DS ---
Providers Date of admission: 10/18/18 23:42 Expected date of discharge: 10/21/18 Attending physician: Jon Mayes Consults: 10/18/18 23:02 Consult Physician Stat Consulting Provider: Trae León Reason/Comments: Ileus Do you want consulting provider notified?: Yes Primary care physician: Jon Mayes Hospital Course: 28-year-old white male who is severely mentally impaired has had multiple admissions for similar problems related to small bowel obstruction. He's had multiple abdominal surgeries were in use infantdue to defects on his abdomen he is currently on lactulose daily and use of enemas when needed. His power of regulatory attorney is his sister who has maintained good care of patient. He is noncommunicating and rest of history is taken from previous records. He presented to the emergency department last night with family member for evaluation of distended abdomen, decreased appetite, abdominal pain, and frequent belching. Symptoms started yesterday. They states he has had a small amount of fluid intake today, but no food. Patient does have history of bowel obstruction and symptoms are similar to his previous episodes. He is unable to provide history. They deny any fevers or chills. Patient has not been vomiting. States he did have a liquidy bowel movements after her dose of lactulose. Patient did show improvement with conservative treatment with resolution of ileus; his diet was advanced gradually and he tolerated well Surgery was consulted and again patient was recommended conservative treatment Patient was discharged home in a stable condition Patient Condition at Discharge: Serious Plan - Discharge Summary Discharge Rx Participant: No New Discharge Prescriptions: Continue Lactulose 20 gm PO BID Psyllium Husk 100% [Metamucil Packet] 6 gm PO W/LUNCH Discharge Medication List Lactulose 20 gm PO BID 04/04/18 [History] Psyllium Husk 100% [Metamucil Packet] 6 gm PO W/LUNCH 10/18/18 [History] Follow up Appointment(s)/Referral(s): Jon Mayes DO [Primary Care Provider] - 1-2 days (Office is closed please call for follow up appointment ) Patient Instructions/Handouts: Ileus (DC) Activity/Diet/Wound Care/Special Instructions: Full liquid diet until follow up appointment Discharge Disposition: HOME SELF-CARE
[2018-10-21 15:12] VITALS: BP 129/81; PULSE 77; RESP 16; TEMP 97.6
== END 2018-10-21 15:05 | disposition home or self-care (01) | DRG 389 ==
LOC: EC 18:30 → 4SSUR 23:42
PROVIDERS: ADMIT Family Medicine; ATTEND Family Medicine
DX: K56.7 Ileus, unspecified (principal); F72 Severe intellectual disabilities; R47.01 Aphasia; G80.9 Cerebral palsy, unspecified; R32 Unspecified urinary incontinence; R15.9 Full incontinence of feces; Z79.899 Other long term (current) drug therapy; Z90.49 Acquired absence of other specified parts of digestive tract; Z80.3 Family history of malignant neoplasm of breast; Z82.0 Family history of epilepsy and other diseases of the nervous system
CPT/HCPCS: 36415; 74018; 74019; 74177; 80048; 80053; 81003; 82150; 83605; 83690; 85025; 85027; 87040; 96361; 96374; 99285

== ENCOUNTER 2019-07-24 09:06 | Inpatient (IN) | payer MEDICARE, OTHER ==
[2019-07-24] MEDS ORDERED: SODIUM CHLORIDE 0.9% 1,000 ML IV STA (09:37)
--- NOTE | 2019-07-24 09:40 | ED ---
General Adult HPI - General Chief complaint: Abdominal Pain Stated complaint: constipation Time Seen by Provider: 07/24/19 09:15 Source: family, RN notes reviewed, old records reviewed Mode of arrival: ambulatory - History of Present Illness Initial comments: This is a 29-year-old male who is developmentally delayed and unable to give any history. Patient's mother states had many surgeries she doesn't know the month but he has had multiple bowel obstructions and she brings him in today because she believes he is having a bowel obstruction today. Patient has been unable to eat or unwilling to eat for the last couple of days and she states that's normal sinus has an obstruction. Patient also has a more firm abdomen according to the mother. Patient has not had any vomiting or diarrhea. Mom states he hasn't had any bowel movements over the last couple of days either. Patient has had no fever chills is been no difficulty breathing shortness of breath. Patient has had no rashes. There's been no trauma. Mom is not a very good historian. - Related Data Home Medications Medication Instructions Recorded Confirmed Lactulose 20 gm PO BID 04/04/18 10/18/18 Psyllium Husk 100% [Metamucil 6 gm PO W/LUNCH 10/18/18 10/18/18 Packet] Allergies Allergy/AdvReac Type Severity Reaction Status Date / Time No Known Allergies Allergy Verified 07/24/19 09:13 Review of Systems ROS Statement: Those systems with pertinent positive or pertinent negative responses have been documented in the HPI. ROS Other: All systems not noted in ROS Statement are negative. 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 Father Family Medical History: Seizure Disorder Additional Family Medical History / Comment(s): Father is 60 rs old. General Exam - General Exam Comments Initial Comments: GENERAL: Patient is well-developed and well-nourished. Patient is nontoxic and well- hydrated and is in unable to tell if he is in any distress because of his severe developmental delay ENT: Neck is soft and supple. No significant lymphadenopathy is noted. Neck has full range of motion without eliciting any pain. EYES: The sclera were anicteric and conjunctiva were pink and moist. Extraocular movements were intact and pupils were equal round and reactive to light. Eyelids were unremarkable. PULMONARY: Unlabored respirations. Good breath sounds bilaterally. CARDIOVASCULAR: There is a regular rate and rhythm without any murmurs gallops or rubs. ABDOMEN: Abdomen is distended and bowel sounds are decreased but patient does not indicate if there is any pain anywhere because of his mental status. Patient's abdomen has multiple scars from previous surgeries mom is unable to tell me what surgery she had SKIN: Skin is clear with no lesions or rashes and otherwise unremarkable. NEUROLOGIC: Patient is alert and oriented 0 which is his baseline. LYMPHATICS: No significant lymphadenopathy is noted PSYCHIATRIC: Unable to assess Course Vital Signs 07/24/19 09:13 Temperature 97.4 F L Pulse Rate 125 H Respiratory 18 Rate Blood Pressure 115/82 O2 Sat by Pulse 96 Oximetry Medical Decision Making - Medical Decision Making Patient's KUB shows a small bowel obstruction I spoke with Dr. Mayes he agreed to admit the patient admitted the patient I consulted surgery. - Lab Data Result diagrams: 07/24/19 10:15 Lab Results 07/24/19 07/24/19 Range/Units 10:15 10:59 Sodium 138 (137-145) mmol/L Potassium 4.1 (3.5-5.1) mmol/L Chloride 96 L (98-107) mmol/L Carbon Dioxide 26 (22-30) mmol/L Anion Gap 16 mmol/L BUN 29 H (9-20) mg/dL Creatinine 0.86 (0.66-1.25) mg/dL Est GFR (CKD-EPI)AfAm >90 (>60 ml/min/1.73 sqM) Est GFR (CKD-EPI)NonAf >90 (>60 ml/min/1.73 sqM) Glucose 127 H (74-99) mg/dL Calcium 10.1 (8.4-10.2) mg/dL Total Bilirubin 0.7 (0.2-1.3) mg/dL AST 26 (17-59) U/L ALT 22 (21-72) U/L Alkaline Phosphatase 61 (38-126) U/L Total Protein 8.4 H (6.3-8.2) g/dL Albumin 5.0 (3.5-5.0) g/dL Amylase 44 (30-110) U/L Lipase 38 (23-300) U/L Urine Color Yellow Urine Appearance Clear (Clear) Urine pH 6.0 (5.0-8.0) Ur Specific Sandoval 1.033 (1.001-1.035) Urine Protein 2+ H (Negative) Urine Glucose (UA) Negative (Negative) Urine Ketones 1+ H (Negative) Urine Blood Trace H (Negative) Urine Nitrite Negative (Negative) Urine Bilirubin Negative (Negative) Urine Urobilinogen <2.0 (<2.0) mg/dL Ur Leukocyte Esterase Negative (Negative) Urine RBC 5 (0-5) /hpf Urine WBC 2 (0-5) /hpf Ur Squamous Epith Cells <1 (0-4) /hpf Urine Mucus Many H (None) /hpf Disposition Clinical Impression: Small bowel obstruction Disposition: ADMITTED IP TO THIS HOSP Referrals: Jon Mayes DO [Primary Care Provider] - 1-2 days Time of Disposition: 11:35
[2019-07-24 11:17] LABS: Appearance,Urine Clear (Clear); Bilirubin,Urine Negative (Negative); Blood,Urine Trace (Negative); Color,Urine Yellow; Glucose,Urine (UA) Negative (Negative); Ketones,Urine 1+ (Negative); Leukocyte Esterase,Urine Negative (Negative); Mucus,Urine Many /hpf; Nitrite,Urine Negative (Negative); Protein,Urine 2+ (Negative); RBC,Urine 5 /hpf (0-5); Specific Gravity,Urine 1.033 (1.001-1.035); Squamous Epithelial Cell,Urine <1 /hpf (0-4); Urobilinogen,Urine <2.0 mg/dL (<2.0)
[2019-07-24 11:19] LABS: HCT 46.8 % (39.0-53.0); HGB 16.3 gm/dL (13.0-17.5); MCH 28.7 pg (25.0-35.0); MCHC 34.9 g/dL (31.0-37.0); MCV 82.3 fL (80.0-100.0); Mean Platelet Volume 6.7; Platelet Count 327 k/uL (150-450); RBC 5.68 m/uL (4.30-5.90); RDW 12.8 % (11.5-15.5); WBC 9.2 k/uL (3.8-10.6)
[2019-07-24 11:21] LABS: ALT 22 U/L (21-72); AST 26 U/L (17-59); African American GFR (CKD) >90 (>60 ml/min/1.73 sqM); Alkaline Phosphatase 61 U/L (38-126); Amylase 44 U/L (30-110); Anion Gap 16 mmol/L; Blood Urea Nitrogen 29 mg/dL (9-20); Calcium 10.1 mg/dL (8.4-10.2); Carbon Dioxide 26 mmol/L (22-30); Chloride 96 mmol/L (98-107); Glucose 127 mg/dL (74-99); Non-African American GFR(CKD) >90 (>60 ml/min/1.73 sqM); Potassium 4.1 mmol/L (3.5-5.1); Sodium 138 mmol/L (137-145); Total Bilirubin 0.7 mg/dL (0.2-1.3); Total Protein 8.4 g/dL (6.3-8.2)
[2019-07-24] MEDS ORDERED: SODIUM CHLORIDE 0.9% 1,000 ML IV ONE (11:37)
--- NOTE | 2019-07-24 11:43 | XR ---
EXAMINATION TYPE: XR KUB DATE OF EXAM: 07/24/2019 COMPARISON: 10/18/2018 HISTORY: Pain TECHNIQUE: Single supine KUB image of the abdomen is obtained FINDINGS: Multiple dilated loops of bowel noted with numerous air-fluid levels identified. Bowel loops measure up to 5.7 cm. Correlate for distal bowel obstruction. No convincing evidence for pneumoperitoneum. No unusual calcifications. The lung bases are clear. The osseous structures are intact. IMPRESSION: 1. Multiple dilated loops of bowel noted with numerous air-fluid levels identified. Bowel loops bassam ure up to 5.7 cm. Correlate for distal bowel obstruction.
[2019-07-24 12:57] LABS: Band Neutrophils % 10 %; Lymphocytes # (M) 0.83 k/uL (1.0-4.8); Monocytes # (M) 1.93 k/uL (0-1.0); Neutrophils % (M) 60 %; Nucleated Red Blood Cells 0 /100 WBC (0-0); Total Cells Counted 100
--- NOTE | 2019-07-24 15:39 | XR ---
EXAMINATION TYPE: XR chest 1V portable DATE OF EXAM: 07/24/2019 COMPARISON: April 04, 2018 HISTORY: Chest pain TECHNIQUE: Single frontal view of the chest is obtained. FINDINGS: NG tube is noted to coil back into the esophagus and should be repositioned. Mild increased density r ight medial lung base may reflect infiltrate or atelectasis. The cardiac silhouette size is within normal limits. The osseous structures are intact. IMPRESSION: 1. NG tube is noted to coil back into the esophagus and should be repositioned.
--- NOTE | 2019-07-24 16:55 | XR ---
EXAMINATION TYPE: XR chest 1V portable DATE OF EXAM: 07/24/2019 COMPARISON: Today HISTORY: Check tube placement TECHNIQUE: Single frontal view of the chest is obtained. FINDINGS: There is nasogastric tube with the tip in the stomach. There is a dilated gas-filled stoma ch. There is some infiltrate right lower lobe. There is no pleural effusion. There are calcified gran ulomata in the lower lobes bilaterally. IMPRESSION: There is evidence of some mild pneumonia right lower lobe that is unchanged or slightly worse than exam one hour ago. No heart failure. NG tube is in good position in the stomach.
--- NOTE | 2019-07-24 19:35 | P.GSCN ---
History of Present Illness Consult date: 07/24/19 Reason for Consult: Ileus History of present illness: Patient presents to the emergency department with his family. Patient has not been eating for the last few days. His abdomen seemed firm to the family. No vomiting. No bowel movement over the last few days. Patient had a nasogastric tube placed in the ER after x-rays showed distended bowel loops with air-fluid levels. Patient has had numerous abdominal surgeries as an . Last year underwent flexible sigmoidoscopy which showed no identifiable anastomosis however it is thought the patient from previous imaging had most of his colon removed in his infancy. No stricture was seen. Patient typically has distention of his bowel down to the rectum distally. Patient typically responds well to gastric decompression and rectal stimulation. No obvious discomfort. He is afebrile. Was tachycardic on arrival. White blood cell count is normal however he does have bandemia which he often does on presentation. 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 LIVES WITH HIS SISTER AND MOTHER WATCH ES HIM DURING THE DAY. SISTER (HELENE) AND HER SPOUSE HAVE RECENTLY ADOPTED PT- NEED PAPERWORK. SISTER AND MOTHER HAD LEGAL GUARDIANSHIP PRIOR. UNABLE TO READ OR WRITE BUT GOES TO [employer] IN [place] WHERE HE LEARNED JUST A FEW THINGS IN SIGN LANGUAGE. PT ABLE TO AMBULATE ON HIS OWN AND HE CAN FOLLOW DIRECTIONS FAIRLY WELL, AND SHAKE HIS HEAD YES /NO. Pt sensitive to buzzing noises. Smoking Status: Never smoker Past Alcohol Use History: None Reported Past Drug Use History: None Reported - Past Family History Mother Family Medical History: Cancer Additional Family Medical History / Comment(s): BREAST CANCER-mother is 63 yrs old. Father Family Medical History: Seizure Disorder Additional Family Medical History / Comment(s): Father is 60 rs old. Medications and Allergies Home Medications Medication Instructions Recorded Confirmed Type Lactulose 20 gm PO BID PRN 04/04/18 07/24/19 History Psyllium Husk 100% [Metamucil 6 gm PO W/LUNCH 10/18/18 07/24/19 History Packet] Allergies Allergy/AdvReac Type Severity Reaction Status Date / Time No Known Allergies Allergy Verified 07/24/19 11:57 Surgical - Exam Vital Signs Temp Pulse Resp BP Pulse Ox 97.4 F L 125 H 18 115/82 96 07/24/19 09:13 07/24/19 09:13 07/24/19 09:13 07/24/19 09:13 07/24/19 09:13 Physical exam: General: Well-developed, well-nourished HEENT: Normocephalic, sclerae nonicteric Abdomen: Multiple scars, nontender, mild distention Extremities: No edema Neuro: Alert and oriented Results - Labs 07/24/19 10:15 07/24/19 10:15 Abnormal Lab Results - Last 24 Hours (Table) 07/24/19 07/24/19 07/24/19 Range/Units 10:15 10:15 10:59 Lymphocytes # (Manual) 0.83 L (1.0-4.8) k/uL Monocytes # (Manual) 1.93 H (0-1.0) k/uL Chloride 96 L (98-107) mmol/L BUN 29 H (9-20) mg/dL Glucose 127 H (74-99) mg/dL Total Protein 8.4 H (6.3-8.2) g/dL Urine Protein 2+ H (Negative) Urine Ketones 1+ H (Negative) Urine Blood Trace H (Negative) Urine Mucus Many H (None) /hpf Diabetes panel 07/24/19 Range/Units 10:15 Sodium 138 (137-145) mmol/L Potassium 4.1 (3.5-5.1) mmol/L Chloride 96 L (98-107) mmol/L Carbon Dioxide 26 (22-30) mmol/L BUN 29 H (9-20) mg/dL Creatinine 0.86 (0.66-1.25) mg/dL Glucose 127 H (74-99) mg/dL Calcium 10.1 (8.4-10.2) mg/dL AST 26 (17-59) U/L ALT 22 (21-72) U/L Alkaline Phosphatase 61 (38-126) U/L Total Protein 8.4 H (6.3-8.2) g/dL Albumin 5.0 (3.5-5.0) g/dL Calcium panel 07/24/19 Range/Units 10:15 Calcium 10.1 (8.4-10.2) mg/dL Albumin 5.0 (3.5-5.0) g/dL Pituitary panel 07/24/19 Range/Units 10:15 Sodium 138 (137-145) mmol/L Potassium 4.1 (3.5-5.1) mmol/L Chloride 96 L (98-107) mmol/L Carbon Dioxide 26 (22-30) mmol/L BUN 29 H (9-20) mg/dL Creatinine 0.86 (0.66-1.25) mg/dL Glucose 127 H (74-99) mg/dL Calcium 10.1 (8.4-10.2) mg/dL Adrenal panel 07/24/19 Range/Units 10:15 Sodium 138 (137-145) mmol/L Potassium 4.1 (3.5-5.1) mmol/L Chloride 96 L (98-107) mmol/L Carbon Dioxide 26 (22-30) mmol/L BUN 29 H (9-20) mg/dL Creatinine 0.86 (0.66-1.25) mg/dL Glucose 127 H (74-99) mg/dL Calcium 10.1 (8.4-10.2) mg/dL Total Bilirubin 0.7 (0.2-1.3) mg/dL AST 26 (17-59) U/L ALT 22 (21-72) U/L Alkaline Phosphatase 61 (38-126) U/L Total Protein 8.4 H (6.3-8.2) g/dL Albumin 5.0 (3.5-5.0) g/dL Assessment and Plan (1) Ileus Narrative/Plan: Patient has nasogastric tube in place currently. Keep that for now. Repeat abdominal x-rays tomorrow. Continue nothing by mouth. Daily Dulcolax suppositories for rectal stimulation purposes. We'll follow with you. Current Visit: No Status: Acute Code(s): K56.7 - ILEUS, UNSPECIFIED SNOMED Code(s): 807378172
[2019-07-24] MEDS: BISACODYL 10 MG SUPP RECTAL SCH (21:42)
--- NOTE | 2019-07-25 08:06 | XR ---
EXAMINATION TYPE: XR abdomen 2V DATE OF EXAM: 07/25/2019 CLINICAL HISTORY: Small bowel obstruction TECHNIQUE: Supine and upright views of the abdomen are obtained. COMPARISON: Abdominal x-ray from yesterday CT abdomen and pelvis October 18, 2018. FINDINGS: Gas is redemonstrated in prominent small and large bowel loops with scattered air-fluid lev els. Interval successful passage of nasogastric tube below diaphragm with decompression of stomach le ft upper quadrant. Small gallstones right mid abdomen are redemonstrated. No pneumoperitoneum. Lung b ases are clear. Osseous structures are intact. IMPRESSION: Overall nonspecific bowel gas pattern remains present. Findings favor severe diffuse ile us as there is colonic dilatation present right upper quadrant and upper mid abdomen.
[2019-07-25] MEDS: BISACODYL 10 MG SUPP RECTAL SCH (08:17)
[2019-07-25] MEDS: PANTOPRAZOLE 40 MG/10 ML VIAL IVP SCH (08:17)
--- NOTE | 2019-07-25 14:36 | P.HPIM ---
History of Present Illness H&P Date: 07/25/19 This is a pleasant 28-year-old white male who is severely mentally impaired has had multiple admissions for similar problems related to small bowel obstruction. 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 He presented to the emergency department last night with family member for evaluation of distended abdomen, no appetite, abdominal pain, and no bowel movements over the past few days . KUB reporting multiple dilated loops of bowel numerous air-fluid levels, possible distal bowel obstruction. Afebrile, normal WBC, positive bandemia.Patient does have history of bowel obstruction and symptoms are similar to his previous episodes. He is unable to provide history. They deny any fevers or chills. Patient has not been vomiting. Abdominal x- ray reporting nonspecific bowel gas pattern, severe diffuse ileus with colonic dilatation of right upper quadrant and upper mid abdomen. NG tube placed in the ER. Evaluated by surgery with recommendations noted and appreciated. Review of Systems Review of systems unable to obtain given patient's mental status. 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 LIVES WITH HIS SISTER AND MOTHER WATCHES HIM DURING THE DAY. SISTER (HELENE) AND HER SPOUSE HAVE RECENTLY ADOPTED PT-NEED PAPERWORK. SISTER AND MOTHER HAD LEGAL GUARDIANSHIP PRIOR. UNABLE TO READ OR WRITE BUT GOES TO [facility] [employer] IN [place] WHERE HE LEARNED JUST A FEW THINGS IN SIGN LANGUAGE. PT ABLE TO AMBULATE ON HIS OWN AND HE CAN FOLLOW DIRECTIONS FAIRLY WELL, AND SHAKE HIS HEAD YES /NO. Pt sensitive to buzzing noises. Smoking Status: Never smoker Past Alcohol Use History: None Reported Past Drug Use History: None Reported - Past Family History Mother Family Medical History: Cancer Additional Family Medical History / Comment(s): BREAST CANCER-mother is 63 yrs old. Father Family Medical History: Seizure Disorder Additional Family Medical History / Comment(s): Father is 60 rs old. Medications and Allergies Home Medications Medication Instructions Recorded Confirmed Type Lactulose 20 gm PO BID PRN 04/04/18 07/24/19 History Psyllium Husk 100% [Metamucil 6 gm PO W/LUNCH 10/18/18 07/24/19 History Packet] Allergies Allergy/AdvReac Type Severity Reaction Status Date / Time No Known Allergies Allergy Verified 07/24/19 11:57 Physical Exam Vitals: Vital Signs Temp Pulse Pulse Resp BP BP Pulse Ox 07/25/19 08:45 98.1 F 87 16 118/73 99 07/25/19 08:00 16 07/24/19 23:00 97.9 F 91 18 143/84 98 07/24/19 15:10 96.5 F L 95 16 133/84 97 07/24/19 14:23 95 18 138/88 96 Intake and Output 07/24/19 07/25/19 07/25/19 22:59 06:59 14:59 Intake Total 0 Output Total 200 500 Balance -200 -500 Intake: Oral 0 Output: Gastric Drainage 200 500 Other: Voiding Method Toilet Toilet # Voids 2 # Bowel Movements 1 Weight 45.5 kg General appearance: well-developed, thin appearing adult male in no acute distress. Eye exam: Present: normal appearance, PERRL, EOMI. Absent: scleral icterus, conjunctival injection, periorbital swelling ENT exam: Present: normal exam, normal oropharynx, mucous membranes moist Respiratory exam: Present: normal lung sounds bilaterally. Absent: respiratory distress, wheezes, rales, rhonchi, stridor Cardiovascular Exam: Present: normal rhythm, mild tachycardia, normal heart sounds. Absent: systolic murmur, diastolic murmur, rubs, gallop, clicks GI/Abdominal exam: Present: Mildly distended, nontender, distant bowel sounds. Absent: guarding, rebound, rigid Neurological exam: Present: alert, oriented X3, CN II-XII intact Psychiatric exam: Present: normal affect, normal mood Skin exam: Present: warm, dry, intact, normal color. Absent: rash Results CBC & Chem 7: 07/24/19 10:15 07/24/19 10:15 Thrombosis Risk Factor Assmnt - Choose All That Apply Any of the Below Risk Factors Present?: No Assessment and Plan Assessment: (1) Abdominal pain Current Visit: Yes Status: Acute Code(s): R10.9 - UNSPECIFIED ABDOMINAL PAIN SNOMED Code(s): 61677534 (2) Ileus Current Visit: Yes Status: Acute Code(s): K56.7 - ILEUS, UNSPECIFIED SNOMED Code(s): 818060791 (3) Bowel obstruction Current Visit: No Status: Acute Code(s): K56.60 - UNSPECIFIED INTESTINAL OBSTRUCTION * DO NOT USE * SNOMED Code(s): 38778958 (4) Nonverbal Current Visit: No Status: Acute Code(s): R47.01 - APHASIA SNOMED Code(s): 773265833 Plan: Continue on current medication regime , Dulcolax suppositories ,monitoring and symptomatic treatment. Maintain NPO, NG tube. Continue with IV fluid hydration. GI prophylaxis in place. Repeat abdominal x-ray scheduled for a.m. follow closely with surgery. The impression and plan of care has been dictated as directed. : I performed a history and examination of this patient, discussed the same with the dictator. I agree with the dictator's note ,documented as a scribe. Any additional findings or plans will be noted.
--- NOTE | 2019-07-25 19:05 | P.PN ---
Subjective Progress Note Date: 07/25/19 Principal diagnosis: Ileus Patient seems to be doing better. He is getting up out of bed and moving about the halls. No obvious discomfort. Had an additional bowel movement today. He has less bloated. Abdominal x-rays show ileus. Objective - Vital Signs Vital signs: Vital Signs Temp 98.2 F 07/25/19 13:52 Pulse 88 07/25/19 13:52 Resp 16 07/25/19 16:00 BP 125/72 07/25/19 13:52 Pulse Ox 97 07/25/19 13:52 Intake & Output 07/25/19 07/25/19 07/26/19 06:59 18:59 06:59 Intake Total 0 Output Total 700 300 Balance -700 -300 Weight 45.5 kg Intake: Oral 0 Output: Gastric Drainage 700 300 Other: Voiding Method Toilet Toilet # Voids 2 3 # Bowel Movements 1 1 - Exam Abdomen: Soft, mild distention, nontender overall distention significant improved - Labs CBC & Chem 7: 07/24/19 10:15 07/24/19 10:15 Assessment and Plan (1) Ileus Narrative/Plan: Patient improving at this time. Continue daily suppositories. Begin clear liquid diet. Possible discharge 24-48 hours. Current Visit: No Status: Acute Code(s): K56.7 - ILEUS, UNSPECIFIED SNOMED Code(s): 648819093
--- NOTE | 2019-07-26 08:35 | XR ---
EXAMINATION TYPE: XR abdomen 2V DATE OF EXAM: 07/26/2019 CLINICAL HISTORY: Distention. TECHNIQUE: Supine and upright views of the abdomen are obtained. COMPARISON: Abdominal x-ray from yesterday and older studies. FINDINGS: Interval removal of nasogastric tube. Recurrent stomach distention with air-fluid level. Ga s prominent and distended small and large bowel loops with air-fluid levels to the rectum remain pres ent. Lung bases remain clear. No pneumoperitoneum. Number of gas filled bowel loops increased from pr ior. IMPRESSION: Interval removal of nasogastric tube. New dilated stomach. Worsening gaseous prominent an d dilated small and large bowel loops suggests progressive severe adynamic ileus.
[2019-07-26] MEDS: BISACODYL 10 MG SUPP RECTAL SCH (08:40)
[2019-07-26] MEDS: PANTOPRAZOLE 40 MG/10 ML VIAL IVP SCH (08:40)
--- NOTE | 2019-07-26 10:08 | P.PN ---
Subjective Progress Note Date: 07/26/19 Principal diagnosis: Ileus Patient seems to be doing fairly well this morning. Repeat abdominal x-rays however show increased distention of the stomach of moderate to severe extent as well as dilated small bowel and colon. No vomiting. He appears comfortable. Objective - Vital Signs Vital signs: Vital Signs Temp 97.9 F 07/26/19 07:00 Pulse 88 07/26/19 07:00 Resp 16 07/26/19 07:00 BP 131/84 07/26/19 07:00 Pulse Ox 100 07/26/19 07:00 Intake & Output 07/25/19 07/26/19 07/26/19 18:59 06:59 18:59 Intake Total 1000 Output Total 300 Balance -300 1000 Weight 45.5 kg Intake: Oral 1000 Output: Gastric Drainage 300 Other: Voiding Method Toilet Toilet # Voids 3 6 # Bowel Movements 1 - Exam Abdomen: Soft, nontender, mild increased distention from yesterday - Labs CBC & Chem 7: 07/24/19 10:15 07/24/19 10:15 Assessment and Plan (1) Ileus Narrative/Plan: Will replace nasogastric tube. Add Reglan. Continue Dulcolax suppositories. Current Visit: No Status: Acute Code(s): K56.7 - ILEUS, UNSPECIFIED SNOMED Code(s): 731803328
--- NOTE | 2019-07-26 11:14 | XR ---
EXAMINATION TYPE: XR chest 1V portable DATE OF EXAM: 07/26/2019 CLINICAL HISTORY: NG tube placement. TECHNIQUE: Single AP portable upright view of the chest is obtained. COMPARISON: Chest x-ray from 2 days earlier . Abdominal x-ray earlier today. FINDINGS: The new nasogastric tube projects below diaphragm. Some chronic parenchymal change without new focal airspace opacity, pleural effusion, or pneumothorax. Cardiac silhouette size is stable and enlarged. Gas prominent bowel loops in the upper to mid abdomen remain present. Osseous structures a re intact. IMPRESSION: New nasogastric tube satisfactory in position. Cardiomegaly without new acute pulmonary p rocess.
[2019-07-26] MEDS: METOCLOPRAMIDE 5 MG/ML 2 ML VIAL IVP SCH ×2 (11:58→18:13)
[2019-07-26] MEDS: SODIUM CHLORIDE 0.9% 1,000 ML IV SCH (12:00)
[2019-07-26 17:34] LABS: Prothrombin Time 10.7 sec (9.0-12.0)
[2019-07-26] MEDS: HEPARIN SODIUM,PORCINE 5,000 UNIT/ML 1 ML VIAL SQ SCH (21:01)
--- NOTE | 2019-07-26 22:11 | PN ---
PROGRESS NOTE DATE OF SERVICE: 07/26/2019 I am covering for Dr. Mayes. HISTORY OF PRESENT ILLNESS: This 29-year-old gentleman admitted with partial small-bowel obstruction is being closely monitored. The most recent abdominal x-ray showed multiple loops of intestines, mostly small. Dr. León is following the patient closely. NG placement was recommended. Otherwise, glucose 127. PAST MEDICAL HISTORY: Reviewed. REVIEW OF SYSTEMS: Could not be taken at length because the patient's mental status changes. CURRENT MEDICATIONS ARE: Dulcolax p.r.n., Reglan p.r.n., Protonix, IV fluids. PHYSICAL EXAMINATION: The patient is alert, oriented x1. Pulse 83, blood pressure 130/70, respirations 16, temperature 97.7, pulse ox 100% on room air. HEENT: Conjunctivae normal. Oral mucosa moist. NECK: No jugular venous distention. No lymph node enlargement. CARDIOVASCULAR: S1, S2. RESPIRATORY: Diminished breath sounds at the bases. No rhonchi, no crackles. ABDOMEN: Soft. Mild diffuse distention. Bowel sounds diminished. LEGS: No swelling. NERVOUS SYSTEM: No focal deficits. LABS: CBC within normal. Sodium 130, potassium 4.0, UA noted. Otherwise, the most recent CT abdomen is not available done in early 2018 showed ileus. ASSESSMENT: 1. Abdominal pain with partial small-bowel obstruction or ileus. 2. History of ileus previously. 3. History of seizure disorder. 4. 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 5. History of necrotizing enterocolitis. 6. History of bowel resection. 7. History of EGDs. RECOMMENDATIONS AND DISCUSSION: In this 29-year-old gentleman who presented with multiple complex medical issues, we will monitor the patient closely continue the current management and symptomatic treatment. I recommend continue with the proton pump inhibitors, mostly IV fluids, keep the patient n.p.o., NG tube suction. I would recommend followup labs. I would also recommend DVT prophylaxis and closely follow with surgery. Further recommendations to follow. Prognosis guarded. MMODL / NURIAN: [id number] /
[2019-07-27] MEDS: METOCLOPRAMIDE 5 MG/ML 2 ML VIAL IVP SCH ×5 (00:58→23:25)
[2019-07-27] MEDS: SODIUM CHLORIDE 0.9% 1,000 ML IV SCH ×2 (03:54→17:38)
[2019-07-27] MEDS: BISACODYL 10 MG SUPP RECTAL SCH (08:31)
[2019-07-27] MEDS: PANTOPRAZOLE 40 MG/10 ML VIAL IVP SCH (08:31)
[2019-07-27] MEDS: HEPARIN SODIUM,PORCINE 5,000 UNIT/ML 1 ML VIAL SQ SCH ×2 (08:32→21:42)
[2019-07-27 09:17] LABS: Basophils % (A) 1 %; Eosinophils # (A) 0.1 k/uL (0-0.7); Eosinophils % (A) 2 %; HCT 45.1 % (39.0-53.0); HGB 14.9 gm/dL (13.0-17.5); Lymphocytes # (A) 1.3 k/uL (1.0-4.8); Lymphocytes % (A) 27 %; MCH 27.8 pg (25.0-35.0); MCHC 33.1 g/dL (31.0-37.0); Mean Platelet Volume 7.2; Monocytes # (A) 0.5 k/uL (0-1.0); Monocytes % (A) 11 %; Neutrophils # (A) 2.7 k/uL (1.3-7.7); Neutrophils % (A) 56 %; Platelet Count 255 k/uL (150-450); RBC 5.37 m/uL (4.30-5.90); RDW 12.5 % (11.5-15.5); WBC 4.9 k/uL (3.8-10.6)
[2019-07-27 09:27] LABS: African American GFR (CKD) >90 (>60 ml/min/1.73 sqM); Anion Gap 16 mmol/L; Blood Urea Nitrogen 12 mg/dL (9-20); Calcium 9.3 mg/dL (8.4-10.2); Carbon Dioxide 21 mmol/L (22-30); Chloride 103 mmol/L (98-107); Glucose 71 mg/dL (74-99); Non-African American GFR(CKD) >90 (>60 ml/min/1.73 sqM); Potassium 3.9 mmol/L (3.5-5.1); Sodium 140 mmol/L (137-145)
--- NOTE | 2019-07-27 10:39 | P.PN ---
<Venus Leung - Last Filed: 07/27/19 10:33> Subjective Progress Note Date: 07/27/19 CHIEF COMPLAINT: Small bowel obstruction HISTORY OF PRESENT ILLNESS: Patient examined at the bedside with Dr. León. Sister is at the bedside. Patient is awake and alert. Appears to be back to his baseline. He appears comfortable. Per nursing, patient is passing flatus. No further bowel movements. No vomiting. PHYSICAL EXAM: VITAL SIGNS: Reviewed. GENERAL: Well-developed in no acute distress. HEENT: No sclera icterus. Extraocular movements grossly intact. Moist buccal mucosa. Head is atraumatic, normocephalic. ABDOMEN: Soft. Nondistended. Nontender. NEUROLOGIC: Nonverbal at baseline. ASSESSMENT: 1. Small bowel obstruction PLAN: Continue daily dulcolax suppositories Continue Reglan Await abdominal XR results from today Possible clear liquid diet to be initiated today pending XR results Nurse practitioner note has been reviewed by physician. Signing provider agrees with the documented findings, assessment, and plan of care. Objective - Vital Signs Vital signs: Vital Signs Temp 98.0 F 07/27/19 05:07 Pulse 76 07/27/19 05:07 Resp 14 07/27/19 05:07 BP 105/64 07/27/19 05:07 Pulse Ox 96 07/27/19 05:07 Intake & Output 07/26/19 07/27/19 07/27/19 18:59 06:59 18:59 Other: Voiding Method Toilet # Voids 3 1 - Labs CBC & Chem 7: 07/27/19 08:47 07/27/19 08:47 Labs: Abnormal Lab Results - Last 24 Hours (Table) 07/27/19 Range/Units 08:47 Carbon Dioxide 21 L (22-30) mmol/L Creatinine 0.64 L (0.66-1.25) mg/dL Glucose 71 L (74-99) mg/dL <Trae León - Last Filed: 07/27/19 12:55> Subjective As above. X-rays appear improved. Begin clear liquids once again. Objective - Vital Signs Vital signs: Vital Signs Temp 98.0 F 07/27/19 05:07 Pulse 76 07/27/19 05:07 Resp 14 07/27/19 05:07 BP 105/64 07/27/19 05:07 Pulse Ox 96 07/27/19 05:07 Intake & Output 07/26/19 07/27/19 07/27/19 18:59 06:59 18:59 Weight 58.967 kg Other: Voiding Method Toilet # Voids 3 1 - Labs CBC & Chem 7: 07/27/19 08:47 07/27/19 08:47 Labs: Abnormal Lab Results - Last 24 Hours (Table) 07/27/19 Range/Units 08:47 Carbon Dioxide 21 L (22-30) mmol/L Creatinine 0.64 L (0.66-1.25) mg/dL Glucose 71 L (74-99) mg/dL Assessment and Plan (1) Ileus Current Visit: No Status: Acute Code(s): K56.7 - ILEUS, UNSPECIFIED SNOMED Code(s): 745589987
--- NOTE | 2019-07-27 11:12 | XR ---
EXAMINATION TYPE: XR abdomen 2V DATE OF EXAM: 07/27/2019 CLINICAL HISTORY: Ileus. TECHNIQUE: Supine and upright views of the abdomen are obtained. COMPARISON: Abdominal x-ray from yesterday and older x-rays. CT October 18, 2018.. FINDINGS: Improvement in gaseous distention of stomach. Prominent gas distended left sided bowel loop s. Some persistent gas prominent and dilated right-sided small and large bowel loops including involv ement and pelvis. Interval improvement in number and degree of abnormal bowel loops. Small gallstones redemonstrated. Lung bases remain clear. The osseous structures are intact. IMPRESSION: Overall improvement. Persistent nonspecific bowel gas pattern favoring resolving ileus.
--- NOTE | 2019-07-27 22:33 | PN ---
PROGRESS NOTE I am covering for Dr. Mayes. DATE OF SERVICE: 07/27/2019 This 29-year-old gentleman admitted with acute small-bowel obstruction is being closely monitored at this time. The most recent abdominal x-ray, which was personally reviewed by me, showed overall improvement. Dr. León is following the patient closely. No chest pain. No palpitations. No fever. PHYSICAL EXAMINATION: Pulse is 76, blood pressure 105/64, respiration 14, temperature 98 degrees, pulse ox 97% on room air. HEENT: Conjunctivae normal. NECK: No jugular venous distention. CARDIOVASCULAR SYSTEM: S1, S2 muffled. RESPIRATORY SYSTEM: Breath sounds diminished at the bases. No rhonchi. No crackles. ABDOMEN: Soft. Mild diffuse distention. Mild diffuse discomfort on palpation. No guarding. No rigidity. No mass palpable. Bowel sounds diminished. NERVOUS SYSTEM: No focal deficit. LABS: CBC within normal limits. BMP noted. ASSESSMENT: 1. Acute small-bowel obstruction with abdominal pain. 2. History of ileus previously. 3. History of seizure disorder. 4. History of premature and intestinal surgery in infancy. 5. History of cerebral palsy, mental retardation. 6. History of necrotizing enterocolitis. 7. History of bowel resection. 8. History of esophagogastroduodenoscopy. RECOMMENDATIONS AND DISCUSSION: I recommend to continue current medications, continue with the monitoring, symptomatic treatment. Advance diet per Dr. León. Symptomatic treatment. Guarded prognosis. Further recommendations to follow. MMODL / IJN: [id number] /
[2019-07-28] MEDS: SODIUM CHLORIDE 0.9% 1,000 ML IV SCH ×2 (06:16→17:30)
[2019-07-28] MEDS: METOCLOPRAMIDE 5 MG/ML 2 ML VIAL IVP SCH ×3 (06:16→17:30)
[2019-07-28] MEDS: BISACODYL 10 MG SUPP RECTAL SCH (08:11)
[2019-07-28] MEDS: PANTOPRAZOLE 40 MG/10 ML VIAL IVP SCH (08:11)
[2019-07-28] MEDS: HEPARIN SODIUM,PORCINE 5,000 UNIT/ML 1 ML VIAL SQ SCH ×2 (08:11→19:39)
[2019-07-28 08:38] LABS: African American GFR (CKD) >90 (>60 ml/min/1.73 sqM); Anion Gap 12 mmol/L; Blood Urea Nitrogen 4 mg/dL (9-20); Calcium 9.2 mg/dL (8.4-10.2); Carbon Dioxide 27 mmol/L (22-30); Chloride 101 mmol/L (98-107); Glucose 83 mg/dL (74-99); Non-African American GFR(CKD) >90 (>60 ml/min/1.73 sqM); Potassium 3.1 mmol/L (3.5-5.1); Sodium 140 mmol/L (137-145)
[2019-07-28 08:52] LABS: Basophils % (A) 1 %; Eosinophils # (A) 0.1 k/uL (0-0.7); Eosinophils % (A) 2 %; HCT 39.7 % (39.0-53.0); HGB 13.8 gm/dL (13.0-17.5); Lymphocytes # (A) 1.1 k/uL (1.0-4.8); Lymphocytes % (A) 21 %; MCH 28.3 pg (25.0-35.0); MCHC 34.8 g/dL (31.0-37.0); MCV 81.4 fL (80.0-100.0); Mean Platelet Volume 6.7; Monocytes # (A) 0.5 k/uL (0-1.0); Monocytes % (A) 9 %; Neutrophils # (A) 3.4 k/uL (1.3-7.7); Neutrophils % (A) 66 %; Platelet Count 281 k/uL (150-450); RBC 4.87 m/uL (4.30-5.90); RDW 12.4 % (11.5-15.5); WBC 5.2 k/uL (3.8-10.6)
--- NOTE | 2019-07-28 10:09 | P.PN ---
Subjective Progress Note Date: 07/28/19 Principal diagnosis: Ileus Patient seems to be doing well today. Very active. Does not appear to be in any discomfort. Passing flatus. May have had a bowel movement earlier today. Tolerating clears. Objective - Vital Signs Vital signs: Vital Signs Temp 98.0 F 07/28/19 07:00 Pulse 71 07/28/19 07:00 Resp 18 07/28/19 07:00 BP 130/79 07/28/19 07:00 Pulse Ox 98 07/28/19 07:00 Intake & Output 07/27/19 07/28/19 07/28/19 18:59 06:59 18:59 Intake Total 960 200 Balance 960 200 Weight 58.967 kg Intake: Oral 960 200 Other: # Voids 4 3 # Bowel Movements 0 1 - Exam Abdomen: Soft, nontender, nondistended - Labs CBC & Chem 7: 07/28/19 07:47 07/28/19 07:47 Labs: Abnormal Lab Results - Last 24 Hours (Table) 07/28/19 Range/Units 07:47 Potassium 3.1 L (3.5-5.1) mmol/L BUN 4 L (9-20) mg/dL Creatinine 0.59 L (0.66-1.25) mg/dL Assessment and Plan (1) Ileus Narrative/Plan: Patient with recurrent ileus. Seems to be responding well at this time. Advance to full liquids. Ambulate. Replace hypokalemia. Current Visit: No Status: Acute Code(s): K56.7 - ILEUS, UNSPECIFIED SNOMED Code(s): 846783584
[2019-07-28] MEDS ORDERED: Potassium Replacement Protocol 1 EACH MISC MISCELLANE PRN (10:14)
[2019-07-28] MEDS: POTASSIUM CHLORIDE ER 20 MEQ TAB.ER PO SCH ×2 (10:44→12:06)
--- NOTE | 2019-07-28 19:08 | PN ---
PROGRESS NOTE DATE OF SERVICE: 07/28/2019 This 29-year-old gentleman admitted with partial small-bowel obstruction is improving significantly. No chest pain. No palpitations. No fever. Dr. León is following the patient closely with conservative line of management. The patient is basically nonverbal. The patient is able to ambulate with some help. EXAM: Alert, oriented x3. Pulse 89, blood pressure 116/76, respiration 18, temperature 97.4, pulse ox 94% on room air. HEENT: Conjunctivae normal. Oral mucosa moist. NECK: No jugular venous distention. No lymph node enlargement. CARDIOVASCULAR: S1, S2. RESPIRATORY: Diminished breath sounds at the bases. A few scattered rhonchi, no crackles. ABDOMEN: Soft, nontender. No mass palpable. LEGS: No swelling. NERVOUS SYSTEM: No focal deficits. LABS: Potassium 3.1, it is 5.5 at this time. ASSESSMENT: 1. Acute small-bowel obstruction with abdominal pain, improving. 2. History of ileus previously. 3. History of seizure disorder. 4. Hypokalemia and now hyperkalemia. 5. History of premature and intestinal surgery in infancy. 6. History of cerebral palsy and mental retardation. 7. History of necrotizing enterocolitis. 8. History of bowel resection. 9. History of esophagogastroduodenoscopy. RECOMMENDATIONS AND DISCUSSION: Recommend to continue current medications, continue to monitor, continue symptomatic treatment. Otherwise, at this time I recommend continue with current medications. Repeat labs. Otherwise, monitor closely, DVT prophylaxis, proton pump inhibitors and rest of the medications per Dr. León. Closely follow. Further recommendations to follow. MMODL / IJN: [id number] /
[2019-07-29] MEDS: METOCLOPRAMIDE 5 MG/ML 2 ML VIAL IVP SCH ×5 (00:04→23:37)
[2019-07-29 07:59] LABS: African American GFR (CKD) >90 (>60 ml/min/1.73 sqM); Anion Gap 10 mmol/L; Basophils % (A) 1 %; Blood Urea Nitrogen 5 mg/dL (9-20); Calcium 9.6 mg/dL (8.4-10.2); Carbon Dioxide 29 mmol/L (22-30); Chloride 100 mmol/L (98-107); Eosinophils # (A) 0.1 k/uL (0-0.7); Eosinophils % (A) 1 %; Glucose 90 mg/dL (74-99); HCT 41.7 % (39.0-53.0); HGB 14.2 gm/dL (13.0-17.5); Lymphocytes # (A) 1.5 k/uL (1.0-4.8); Lymphocytes % (A) 27 %; MCV 82.4 fL (80.0-100.0); Mean Platelet Volume 6.9; Monocytes # (A) 0.5 k/uL (0-1.0); Monocytes % (A) 9 %; Neutrophils # (A) 3.3 k/uL (1.3-7.7); Neutrophils % (A) 59 %; Non-African American GFR(CKD) >90 (>60 ml/min/1.73 sqM); Platelet Count 298 k/uL (150-450); Potassium 3.3 mmol/L (3.5-5.1); RBC 5.06 m/uL (4.30-5.90); RDW 12.5 % (11.5-15.5); Sodium 139 mmol/L (137-145); WBC 5.5 k/uL (3.8-10.6)
[2019-07-29] MEDS: HEPARIN SODIUM,PORCINE 5,000 UNIT/ML 1 ML VIAL SQ SCH ×2 (08:42→20:29)
[2019-07-29] MEDS: PANTOPRAZOLE 40 MG/10 ML VIAL IVP SCH (08:42)
[2019-07-29] MEDS: BISACODYL 10 MG SUPP RECTAL SCH (08:53)
--- NOTE | 2019-07-29 10:30 | P.PN ---
Subjective Progress Note Date: 07/29/19 Principal diagnosis: Ileus Patient doing well today. Tolerating full liquids. Had a large bowel movement yesterday per the nursing staff. He is alert. Objective - Vital Signs Vital signs: Vital Signs Temp 97.4 F L 07/29/19 05:51 Pulse 66 07/29/19 05:51 Resp 20 07/29/19 05:51 BP 115/69 07/29/19 05:51 Pulse Ox 96 07/29/19 05:51 Intake & Output 07/28/19 07/29/19 07/29/19 18:59 06:59 18:59 Intake Total 500 1800 300 Balance 500 1800 300 Intake: Oral 500 1800 300 Other: Voiding Method Toilet # Voids 3 1 # Bowel Movements 2 - Exam Abdomen: Soft, nontender, nondistended - Labs CBC & Chem 7: 07/29/19 07:13 07/29/19 07:13 Labs: Abnormal Lab Results - Last 24 Hours (Table) 07/28/19 07/29/19 Range/Units 13:39 07:13 Potassium 5.5 H 3.3 L (3.5-5.1) mmol/L BUN 5 L (9-20) mg/dL Creatinine 0.62 L (0.66-1.25) mg/dL Assessment and Plan (1) Ileus Narrative/Plan: Continue suppositories. Advance diet. Stable for discharge if tolerates. Current Visit: No Status: Acute Code(s): K56.7 - ILEUS, UNSPECIFIED SNOMED Code(s): 279847063
[2019-07-29] MEDS ORDERED: Potassium Replacement Protocol 1 EACH MISC MISCELLANE PRN (12:21)
[2019-07-29] MEDS: POTASSIUM CHLORIDE ER 20 MEQ TAB.ER PO SCH (13:07)
--- NOTE | 2019-07-29 17:00 | PN ---
PROGRESS NOTE DATE OF SERVICE: 07/29/2019. This 29-year-old gentleman who was admitted with acute small-bowel obstruction and abdominal pain is improving significantly. No chest pain. No palpitations. Dr. León is following the patient closely with conservative line of management. PHYSICAL EXAM: Pulse is 93, blood pressure 128/85, respirations 16, temperature 97.2, pulse ox 97% on room air. HEENT: Conjunctivae normal. NECK: No JVD. CARDIOVASCULAR: S1, S2 muffled. RESPIRATORY SYSTEM: Breath sounds diminished at the bases. No rhonchi. No crackles. ABDOMEN soft, nontender. No mass palpable. LEGS are no edema. No swelling. CENTRAL NERVOUS SYSTEM: No focal deficits. LABS: Potassium 3.8. CBC within normal limits. ASSESSMENT: 1. Acute small-bowel obstruction with abdominal pain, improving. 2. Hypokalemia. 3. History of ileus previously. 4. History of seizure disorder. 5. History of premature intestinal surgery as an . 6. History of cerebral palsy, mental retardation. 7. History of necrotizing enterocolitis. 8. History of bowel resection. 9. History of EGD. RECOMMENDATIONS AND DISCUSSION: Recommend to continue current medications, continue with symptomatic treatment. Otherwise, potassium correction. Repeat lytes. Dr. Mayse will follow tomorrow. Further recommendations to follow. Closely follow with Dr. León. MMODL / IJN: [id number] /
[2019-07-30 05:37] VITALS: PULSE 82; RESP 16; TEMP 98.1
[2019-07-30] MEDS: METOCLOPRAMIDE 5 MG/ML 2 ML VIAL IVP SCH (05:51)
[2019-07-30 08:17] LABS: African American GFR (CKD) >90 (>60 ml/min/1.73 sqM); Anion Gap 9 mmol/L; Blood Urea Nitrogen 15 mg/dL (9-20); Calcium 9.7 mg/dL (8.4-10.2); Carbon Dioxide 33 mmol/L (22-30); Chloride 98 mmol/L (98-107); Glucose 99 mg/dL (74-99); Non-African American GFR(CKD) >90 (>60 ml/min/1.73 sqM); Potassium 3.6 mmol/L (3.5-5.1); Sodium 140 mmol/L (137-145)
[2019-07-30] MEDS: HEPARIN SODIUM,PORCINE 5,000 UNIT/ML 1 ML VIAL SQ SCH (08:58)
[2019-07-30] MEDS ORDERED: PANTOPRAZOLE 40 MG TABLET PO SCH (09:00)
[2019-07-30 10:37] VITALS: BMI 17.1
[2019-07-30] MEDS: BISACODYL 10 MG SUPP RECTAL SCH (11:05)
[2019-07-30 11:14] VITALS: BP 104/62
--- NOTE | 2019-07-30 12:30 | P.PN ---
<Venus Leung - Last Filed: 07/30/19 12:27> Subjective Progress Note Date: 07/30/19 CHIEF COMPLAINT: Small bowel obstruction HISTORY OF PRESENT ILLNESS: Patient examined at the bedside. Tolerating diet. Nursing reports BM yesterday. He has not received Dulcolax at the time of my examination this morning. PHYSICAL EXAM: VITAL SIGNS: Reviewed. GENERAL: Well-developed in no acute distress. HEENT: No sclera icterus. Extraocular movements grossly intact. Moist buccal mucosa. Head is atraumatic, normocephalic. ABDOMEN: Soft. Nondistended. Nontender. NEUROLOGIC: Nonverbal at baseline. ASSESSMENT: 1. Ileus/Small bowel obstruction PLAN: Continue diet as tolerated Stable for discharge from a surgical standpoint. Will defer to medicine Nurse practitioner note has been reviewed by physician. Signing provider agrees with the documented findings, assessment, and plan of care. Objective - Vital Signs Vital signs: Vital Signs Temp 98.1 F 07/30/19 05:36 Pulse 82 07/30/19 05:36 Resp 16 07/30/19 05:36 BP 104/62 07/30/19 11:13 Pulse Ox 93 L 07/30/19 05:36 Intake & Output 07/29/19 07/30/19 07/30/19 18:59 06:59 18:59 Intake Total 1000 120 Balance 1000 120 Weight 51 kg Intake: Oral 1000 120 Other: Voiding Method Toilet # Voids 2 3 # Bowel Movements 1 - Labs CBC & Chem 7: 07/29/19 07:13 07/30/19 07:24 Labs: Abnormal Lab Results - Last 24 Hours (Table) 07/30/19 Range/Units 07:24 Carbon Dioxide 33 H (22-30) mmol/L <Trae León - Last Filed: 07/30/19 16:35> Subjective As above. Patient discharge prior to my arrival. Objective - Vital Signs Vital signs: Vital Signs Temp 98.1 F 07/30/19 05:36 Pulse 82 07/30/19 05:36 Resp 16 07/30/19 05:36 BP 104/62 07/30/19 11:13 Pulse Ox 93 L 07/30/19 05:36 Intake & Output 07/29/19 07/30/19 07/30/19 18:59 06:59 18:59 Intake Total 1000 120 Balance 1000 120 Weight 51 kg Intake: Oral 1000 120 Other: Voiding Method Toilet # Voids 2 3 # Bowel Movements 1 - Labs CBC & Chem 7: 07/29/19 07:13 07/30/19 07:24 Labs: Abnormal Lab Results - Last 24 Hours (Table) 07/30/19 Range/Units 07:24 Carbon Dioxide 33 H (22-30) mmol/L Assessment and Plan (1) Ileus Status: Acute Code(s): K56.7 - ILEUS, UNSPECIFIED SNOMED Code(s): 088963716
--- NOTE | 2019-08-01 10:25 | P.DS ---
Providers Date of admission: 07/24/19 11:37 Expected date of discharge: 08/01/19 Attending physician: Jon Mayes Consults: 07/24/19 11:37 Consult Physician Urgent Consulting Provider: Trae León Reason/Comments: Small bowel obstruction Do you want consulting provider notified?: Yes Primary care physician: Jon Mayes [facility] Course: Final Diagnoses: (1) Abdominal pain Current Visit: Yes Status: Acute Code(s): R10.9 - UNSPECIFIED ABDOMINAL PAIN SNOMED Code(s): 80307669 (2) Ileus Current Visit: Yes Status: Acute Code(s): K56.7 - ILEUS, UNSPECIFIED SNOMED Code(s): 771049772 (3) Bowel obstruction Current Visit: No Status: Acute Code(s): K56.60 - UNSPECIFIED INTESTINAL OBSTRUCTION * DO NOT USE * SNOMED Code(s): 74265235 (4) Nonverbal Current Visit: No Status: Acute Code(s): R47.01 - APHASIA SNOMED Code(s): 539384043 Hospital course:This is a pleasant 28-year-old white male who is severely mentally impaired has had multiple admissions for similar problems related to small bowel obstruction. 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 He presented to the emergency department last night with family member for evaluation of distended abdomen, no appetite, abdominal pain, and no bowel movements over the past few days . KUB reporting multiple dilated loops of bowel numerous air-fluid levels, possible distal bowel obstruction. Afebrile, normal WBC, positive bandemia.Patient does have history of bowel obstruction and symptoms are similar to his previous episodes. He is unable to provide history. They deny any fevers or chills. Patient has not been vomiting. Abdominal x-ray reporting nonspecific bowel gas pattern, severe diffuse ileus with colonic dilatation of right upper quadrant and upper mid abdomen. NG tube placed in the ER. Evaluated by surgery with recommendations noted and appreciated. Evaluated by surgery, initially bowel rest, daily to collect suppositories. Tolerating diet, positive bowel movement. No nausea vomiting or diarrhea reported. Significant clinical improvement. Cleared by surgery for discharge. Patient is being discharged home in a stable condition with guarded prognosis. EXAM: General appearance: Alert, no acute distress. Respiratory exam: Present: normal lung sounds bilaterally. Cardiovascular Exam: Present: normal rhythm, normal heart sounds. Absent: systolic murmur, diastolic murmur, rubs, gallop GI/Abdominal exam: Soft, nondistended, nontender, positive bowel sounds Neurological exam: Nonverbal, at baseline The impression and plan of care has been dictated as directed. : I performed a history and examination of this patient, discussed the same with the dictator. I agree with the dictator's note ,documented as a scribe. Any additional findings or plans will be noted. Patient Condition at Discharge: Stable Plan - Discharge Summary New Discharge Prescriptions: New Bisacodyl [Dulcolax] 10 mg RECTAL DAILY PRN #30 supp PRN Reason: Constipation Continue Lactulose 20 gm PO BID PRN PRN Reason: Constipation Psyllium Husk 100% [Metamucil Packet] 6 gm PO W/LUNCH Discharge Medication List Lactulose 20 gm PO BID PRN 04/04/18 [History] Psyllium Husk 100% [Metamucil Packet] 6 gm PO W/LUNCH 10/18/18 [History] Bisacodyl [Dulcolax] 10 mg RECTAL DAILY PRN #30 supp 07/30/19 [Rx] Follow up Appointment(s)/Referral(s): Trae León MD [Medical Doctor] - As Needed Jon Mayes DO [Primary Care Provider] - 08/06/19 1:30 pm Patient Instructions/Handouts: Bowel Obstruction (DC), Ileus (DC) Activity/Diet/Wound Care/Special Instructions: Diet: Low fiber, chop meats Dulcolax rectally if no bowel movement at home Continue rectal stimulation as needed for regular bowel movements Discharge Disposition: HOME SELF-CARE
== END 2019-07-30 13:01 | disposition home or self-care (01) | DRG 389 ==
LOC: EEVIPCON 09:06 → EC 09:06 → 3NMEDONC 11:37 → 4MS4W 13:33
PROVIDERS: ADMIT Family Medicine; ATTEND Family Medicine
DX: K56.600 Partial intestinal obstruction, unspecified as to cause (principal); F72 Severe intellectual disabilities; R47.01 Aphasia; E87.5 Hyperkalemia; E87.6 Hypokalemia; G40.909 Epilepsy, unspecified, not intractable, without status epilepticus; G80.9 Cerebral palsy, unspecified; Z80.3 Family history of malignant neoplasm of breast; Z82.0 Family history of epilepsy and other diseases of the nervous system; Z90.49 Acquired absence of other specified parts of digestive tract
CPT/HCPCS: 36415; 71045; 74018; 74019; 80048; 80053; 81001; 82150; 83690; 84132; 85025; 85610; 96360; 96361; 99285

== ENCOUNTER 2019-10-23 12:02 | Emergency (ER) | payer MEDICARE, OTHER ==
[2019-10-23 12:25] VITALS: BP 126/85; PULSE 80; RESP 20; TEMP 97.6
[2019-10-23] MEDS ORDERED: DEXAMETHASONE SOD PHOSPHATE 10 MG/ML 1 ML VIAL IM STA (13:24)
[2019-10-23] MEDS ORDERED: diphenhydrAMINE 50 MG/ML 1 ML VIAL IM STA (13:24)
--- NOTE | 2019-10-23 13:31 | ED ---
General Adult HPI - General Chief complaint: Skin/Abscess/Foreign Body Stated complaint: rash Time Seen by Provider: 10/23/19 13:11 Source: patient Mode of arrival: ambulatory Limitations: altered mental status, physical limitation - History of Present Illness Initial comments: Dictation was produced using [employer] dictation software. please excuse any grammatical, word or spelling errors. Chief Complaint: 29-year-old male with past medical history of seizure disorder, mental retardation presents with facial rash History of Present Illness: Patient 29-year-old male presents with facial rash. Patient has a history of severe mental retardation. Patient is accompanied by family member reports that they noted the rash today. Patient was at school all day today when he came home and the rashes noted. Patient is accompanied by mother. Mother does not typically take care of patient on a regular basis. Mother does not know of any recent changes with soaps or detergents. Does not know of any recent allergen exposure. Patient unable to provide HPI at this time seeing due to baseline mental status. The ROS documented in this emergency department record has been reviewed and confirmed by me. Those systems with pertinent positive or negative responses have been documented in the HPI. All other systems are other negative and/or noncontributory. PHYSICAL EXAM: General Impression: Alert and oriented x3, not in acute distress HEENT: Normocephalic atraumatic, extra-ocular movements intact, pupils equal and reactive to light bilaterally, mucous membranes moist. Cardiovascular: Heart regular rate and rhythm, S1&S2 audible, no murmurs, rubs or gallops Chest: Lungs clear to auscultation bilaterally, no rhonchi, no wheeze, no rales Abdomen: Bowel sounds present, abdomen soft, non-tender, non-distended, no organomegaly Musculoskeletal: Pulses present and equal in all extremities, no peripheral edema Motor: no focal deficits noted Neurological: CN II-XII grossly intact, no focal motor or sensory deficits noted Skin: Urticarial rash localized to the face. No other rash noted to the skin of the back abdomen chest extremities Psych: Normal affect and mood ED course: 29-year-old male presents with an urticarial rash localized to the face. End upon arrival are within acceptable limits. Patient given Decadron and diphenhydramine IM. They're advised follow-up with primary care physician regarding outpatient management of rash. Mother is told to keep a log with patient's been eating or been exposed to recently to cause his rash. - Related Data Home Medications Medication Instructions Recorded Confirmed Lactulose 20 gm PO BID PRN 04/04/18 07/24/19 Psyllium Husk 100% [Metamucil 6 gm PO W/LUNCH 10/18/18 07/24/19 Packet] Previous Rx's Medication Instructions Recorded Bisacodyl [Dulcolax] 10 mg RECTAL DAILY PRN #30 supp 07/30/19 Allergies Allergy/AdvReac Type Severity Reaction Status Date / Time No Known Allergies Allergy Verified 10/23/19 12:25 Review of Systems ROS Statement: Those systems with pertinent positive or pertinent negative responses have been documented in the HPI. ROS Other: All systems not noted in ROS Statement are negative. 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 Father Family Medical History: Seizure Disorder Additional Family Medical History / Comment(s): Father is 60 rs old. General Exam Limitations: altered mental status, physical limitation Course Vital Signs 10/23/19 12:21 Temperature 97.6 F Pulse Rate 80 Respiratory 20 Rate Blood Pressure 126/85 O2 Sat by Pulse 96 Oximetry Disposition Clinical Impression: Urticaria Disposition: HOME SELF-CARE Condition: Poor Instructions (If sedation given, give patient instructions): Urticaria (ED) Is patient prescribed a controlled substance at d/c from ED?: No Referrals: Jon Mayes DO [Primary Care Provider] - 1-2 days Time of Disposition: 13:30
== END 2019-10-23 13:45 | disposition home or self-care (01) ==
LOC: EC 12:02
DX: L50.9 Urticaria, unspecified (principal); F72 Severe intellectual disabilities
CPT/HCPCS: 96372 ×2; 99282; J1200; J1100

== ENCOUNTER 2023-05-03 13:27 | Emergency (ER) | payer MEDICARE, OTHER ==
[2023-05-03 13:34] VITALS: BP 143/88; PULSE 98; RESP 16; TEMP 97.4
[2023-05-03] MEDS ORDERED: CARBAMIDE PEROXIDE 6.5% DROPS 15 ML BTL BOTH EARS STA (13:44)
--- NOTE | 2023-05-03 13:47 | ED ---
ENT HPI - General Chief complaint: ENT Stated complaint: SUNSCREEN IN EYES/EAR INFECTION? Time Seen by Provider: 05/03/23 13:35 Source: patient, RN notes reviewed Mode of arrival: ambulatory Limitations: physical limitation - History of Present Illness Initial comments: This is a 32-year-old male who presents to the emergency department for sunscreen in the right eye and possible discharge from the ear. Patient is nonverbal at baseline. He was participating in a program with other disabled individuals, and [place] at the beach [place]. In the process of applying sunscreen, some was accidentally sprayed in the right eye. He was then having difficulty opening the eye and his guardian said that it started to turn red. This has started to improve since being here. The individuals running the program were also concerned about an ear infection, as they noticed some material in the right ear. - Related Data Home Medications Medication Instructions Recorded Confirmed RX: Lactulose 20 gm PO BID PRN 04/04/18 07/24/19 RX: Psyllium Husk 100% [Metamucil 6 gm PO W/LUNCH 10/18/18 07/24/19 Packet] Previous Rx's Medication Instructions Recorded bisacodyL [Dulcolax] 10 mg RECTAL DAILY PRN #30 supp 07/30/19 Allergies Allergy/AdvReac Type Severity Reaction Status Date / Time No Known Allergies Allergy Verified 05/03/23 13:34 Review of Systems ROS Statement: Those systems with pertinent positive or pertinent negative responses have been documented in the HPI. ROS Other: All systems not noted in ROS Statement are negative. 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 Father Family Medical History: Seizure Disorder Additional Family Medical History / Comment(s): Father is 60 rs old. General Exam Limitations: physical limitation General appearance: alert Head exam: Present: atraumatic, normocephalic, normal inspection Eye exam: Present: PERRL, EOMI, other (Minor right conjunctival irritation) ENT exam: Present: other (Bilateral cerumen impaction) Respiratory exam: Present: normal lung sounds bilaterally. Absent: respiratory distress, wheezes, rales, rhonchi, stridor Cardiovascular Exam: Present: regular rate, normal rhythm, normal heart sounds. Absent: systolic murmur, diastolic murmur, rubs, gallop, clicks Neurological exam: Present: alert Skin exam: Present: warm, dry, intact, normal color. Absent: rash Course Vital Signs 05/03/23 13:31 Temperature 97.4 F L Pulse Rate 98 Respiratory 16 Rate Blood Pressure 143/88 O2 Sat by Pulse 97 Oximetry Medical Decision Making - Medical Decision Making This is a 32-year-old male who presents to the emergency department for right eye irritation and concerns of material in the ear. Was pt. sent in by a medical professional or institution? @ -No Did you speak to anyone other than the patient for history? @ -His guardian provided all of the information, as the patient is nonverbal Did you review nursing and triage notes? @ -Yes, and I agree, it is accurate with regards to the patient's symptoms. Were old charts reviewed? @ -No Differential Diagnosis? @ -Differential Eye Redness/Irritation: Conjuncitivitis (viral, bacterial, allergic), corneal abrasion, foreign body, iritis, uveitis, keratitis, acute angle closure glaucoma, this is not meant to be an all-inclusive list. EKG interpreted by me (3pts min.)? @ -Not obtained X-rays interpreted by me (1pt min.)? @ -Not obtained CT interpreted by me (1pt min.)? @ -Not obtained U/S interpreted by me (1pt. min.)? @ -Not obtained What testing was considered but not performed? (CT, X-rays, U/S, labs)? Why? @ -None What meds were considered but not given? Why? @ -None Did you discuss the management of the patient with other professionals? @ -No Did you reconcile home meds? @ -No Was smoking cessation discussed for >3mins.? @ -No Was critical care preformed (if so, how long)? @ -No Were there social determinants of health that impacted care today? How? (Homelessness, low income, unemployed, alcoholism, drug addiction, transportation, low edu. Level, literacy, decrease access to med. care, [facility], rehab)? @ -No Was there de-escalation of care discussed even if they declined? (Discuss DNR or withdrawal of care, Hospice)? @ -No What co-morbidities impacted this encounter? (DM, HTN, Smoking, COPD, CAD, Cancer, CVA, Hep., AIDS, mental health diagnosis, sleep apnea, morbid obesity)? @ -Cerebral palsy and mental delay Was patient admitted / discharged? @ -Discharged. The patient had very minor conjunctival injection on exam, but was not exhibiting any signs of distress. His eye was irrigated. Additionally, he had a significant bilateral cerumen impaction, and his guardian believes that the individuals running the program likely saw a piece of wax on the ear, as opposed to other material. From what I could visualize in the ears, I did not see any signs of infection. The family was given a bottle of Debrox drops to go home with for management of the cerumen impaction. Otherwise advised irri gating the eye as needed and applying cool compresses for relief. Undiagnosed new problem with uncertain prognosis? @ -None Drug Therapy requiring intensive monitoring for toxicity (Heparin, Nitro, Insulin, Cardizem)? @ -None Were any procedures done? @ -None Diagnosis/symptom? @ -Right eye irritation, bilateral cerumen impaction Acute, or Chronic, or Acute on Chronic? @ -Acute Uncomplicated (without systemic symptoms) or Complicated (systemic symptoms)? @ -Uncomplicated Side effects of treatment? @ -None Exacerbation, Progression, or Severe Exacerbation] @ -Not applicable Poses a threat to life or bodily function? @ -No Return precautions reviewed in depth, the patient is instructed to return to the emergency department with any new, worsening, or concerning symptoms. Patient's guardian verbalized understanding. This case was discussed in detail with the attending ED physician, Dr. March. Presentation, findings, and treatment plan discussed in detail as well. Disposition Clinical Impression: Bilateral impacted cerumen, Irritation of right eye Disposition: HOME SELF-CARE Instructions (If sedation given, give patient instructions): Carbamide Peroxide (Into the ear) Additional Instructions: Return to the emergency department with any new, worsening, or concerning symptoms. Put 5-10 drops of the debrox drops provided in each ear twice daily for 4 days. The ears can also be irrigated to help remove some of the earwax. Try to rinse out the right eye with water at home if needed, if it continues to be uncomfortable. Cool wet washcloths can also help with the discomfort. Follow up with his primary care provider in 1-2 days. Is patient prescribed a controlled substance at d/c from ED?: No Referrals: Jon Mayes DO [Primary Care Provider] - 1-2 days
== END 2023-05-03 14:55 | disposition home or self-care (01) ==
LOC: EC 13:27
DX: H57.9 Unspecified disorder of eye and adnexa (principal); H61.23 Impacted cerumen, bilateral
CPT/HCPCS: 99283